=== PATIENT | female | born 1955 ===

== ENCOUNTER 2018-06-02 15:27 | Inpatient (IN) | payer MEDICARE ==
[2018-06-02] MEDS ORDERED: Ventilator Sedation Protocol 1 EACH FS SCH (18:00)
[2018-06-02] MEDS ORDERED: Propofol 1,000 MG/100 ML VIAL IV ONE (18:21)
--- NOTE | 2018-06-02 18:41 | RAD ---
PORTABLE AP CHEST X-RAY 06/02/18 HISTORY: Respiratory distress. COMPARISON: None available. FINDINGS: An endotracheal tube is noted in place with the tip overlying the T4 vertebral body and above the lev el of the maria alejandra. Right sided PICC line is noted in place with tip overlying the distal SVC. Dobhoff feeding tube is noted in place which courses into the upper abdomen, but the distal portion is not v isualized. The cardiac silhouette is within normal limits. There is diffuse increased interstitial opacities see n throughout the left lung with mild increase in interstitial opacities on the right. Small left pleu ral effusion is identified. There are linear increased density in the right mid lung zone probably re lated to either scarring or atelectasis. There is mild prominence of the right hilum. Osseous structu res appear intact. Vascular calcifications seen in the thoracic aorta. IMPRESSION: 1. Diffuse increased interstitial opacities throughout the left lung with mild perihilar interst itial densities seen on the right. While some of these findings could be attributable to chronic lung changes, infectious process should be considered. Asymmetric pulmonary edema while a possibility is felt less likely. 2. Small left pleural effusion. 3. Lines and tubes in place as described above. POS: [facility]
[2018-06-02] MEDS ORDERED: Fentanyl BOLUS 250 ML IVPB PRN (18:52)
[2018-06-02] MEDS ORDERED: Propofol BOLUS 1,000 MG/100 ML VIAL IV PRN (18:52)
[2018-06-02] MEDS ORDERED: fentaNYL Citrate/PF 2,000 MCG in Sodium Chloride 0.9% 60 ML IV SCH (18:52)
[2018-06-02] MEDS ORDERED: Lorazepam 2 MG/ML VIAL SLOW IVP PRN (18:52)
[2018-06-02] MEDS ORDERED: DISCONTINUE PREVIOUS NARCOTIC PAIN MEDICATIONS AND BENZODIAZEPINES FS SCH (18:52)
[2018-06-02 19:22] LABS: Actual Bicarbonate (HCO3a) 32.4 mEq/L (22-28); Base Excess (BEa) 6.7 mEq/L (-2.0 to +3.0); CO2 Tension 51.8 mmHg (35.0-45.0); Calcium, Ionized 1.18 mmol/L (1.12-1.30); Carboxyhemoglobin (COHb) 1.6 gm% (0.0-3.0); Hemoglobin (Hb) 11.3 g/dL (12.0-16.0); O2 Tension (PaO2) 88.5 mmHg (> 80.0); Potassium - ABG Lab 3.51 mmol/L (3.70-5.30); pH, Arterial 7.41 (7.35-7.45)
[2018-06-02 19:26] LABS: Puncture Site LRA
[2018-06-02] MEDS: Cefepime 1 GM in Sodium Chloride 0.9% 100 ML IVPB SCH (20:05)
[2018-06-02] MEDS: Famotidine/PF 20 mg/2ml Vial SLOW IVP SCH (20:05)
[2018-06-02 20:11] LABS: Bilirubin Small (Negative); Blood, Urine Negative (Negative); Clarity CLOUDY (Clear); Glucose, Urine (Dipstick) Negative (Negative); Leukocyte Small (Negative); Nitrite Negative (Negative); Protein, Urine (Dipstick) Trace mg/dL (Neg-Trace); Specific Gravity, Urine 1.021 (1.002-1.036)
[2018-06-02 20:13] LABS: Bacteria/HPF None Seen HPF (None Seen); Hyaline Casts/LPF 4-6 HYALINE CAST LPF (0-3 Hyaline); Pathc Cast-AUWi Flag 0.87 (0-2.49); Squamous Epithelial None Seen HPF (0-3); WBC/HPF 21-50 HPF (0-3)
[2018-06-02 20:15] LABS: Yeast-AUWi Flag 57.2 (0-25.0)
[2018-06-02 20:23] LABS: RBC/HPF 0-3 HPF (0-3)
[2018-06-02 20:24] LABS: Yeast-All Forms None Seen HPF (None Seen)
[2018-06-02] MEDS ORDERED: Enoxaparin Sodium 40 MG/0.4 ML SYRINGE SC SCH (21:00)
[2018-06-03] MEDS: Propofol 1,000 MG/100 ML VIAL IV PRN ×2 (05:17→16:33)
[2018-06-03 06:42] LABS: Anion Gap 11 mmol/L (10-20); BUN (Urea Nitrogen) 34 mg/dL (9.8-20.1); Calc. Creatinine Clearance 121 mL/min (70-130); Calcium 9.2 mg/dL (7.8-10.44); Carbon Dioxide 30 mmol/L (23-31); Chloride 105 mmol/L (98-107); Estimated GFR-MDRD Greater than 90; Glucose 119 mg/dL (80-115); Potassium 4.1 mmol/L (3.5-5.1); Sodium 142 mmol/L (136-145)
[2018-06-03 06:48] LABS: Actual Bicarbonate (HCO3a) 30.8 mEq/L (22-28); Base Excess (BEa) 6.8 mEq/L (-2.0 to +3.0); CO2 Tension 41.5 mmHg (35.0-45.0); Carboxyhemoglobin (COHb) 1.4 gm% (0.0-3.0); Hemoglobin (Hb) 9.2 g/dL (12.0-16.0); O2 Tension (PaO2) 137.4 mmHg (> 80.0); Potassium - ABG Lab 4.05 mmol/L (3.70-5.30); pH, Arterial 7.49 (7.35-7.45)
[2018-06-03 06:49] LABS: Puncture Site L.R.
[2018-06-03 06:50] LABS: ALV-art Gradient 238.525 (0-20)
[2018-06-03 06:56] LABS: Band 17 % (5-11); Eosinophils 1 % (0-10); Lymphocytes 22 % (21-51); MDiff Complete? YES; Mean Corpuscular HGB CONC 32.4 g/dL (32.0-36.0); Mean Corpuscular Hemoglobin 32.7 pg (27.0-31.0); Mean Platelet Volume 9.7 fL (7.4-10.4); Metamyelocyte 2 % (0-0); Monocytes 4 % (0-10); Myelocyte 3 % (0-0); Neutrophil 51 % (42-75); Nucleated RBC 6 % (0); PLT Morphology Comment Appears Decreased; Platelet Count 65 thou/uL (130-400); RBC Distribution Width 15.3 % (11.5-14.5); Red Blood Cell (RBC) Count 2.75 mill/uL (4.20-5.40); White Blood Cell (WBC) Count 10.3 thou/uL (4.8-10.8)
--- NOTE | 2018-06-03 08:25 | PRG ---
DATE OF SERVICE: 06/03/2018 She is a 63-year-old female transferred from [place]. This morning she is on the vent, breathing 20 times a minute. PHYSICAL EXAMINATION: VITAL SIGNS: Temperature 98, blood pressure 133/50, sats 95%. I's and O's 343 in, 620 out. CHEST: Chest reveals extensive rhonchi and crackles. CARDIAC: Sinus tachycardia. ABDOMEN: Distended, soft. NEUROLOGIC: She opens her eyes. Appears to be severely deconditioned. LABORATORY: White count 10,000, H&H 9 and 27, platelet count is 65,000, neutrophils 51, bands 17, pO 2 is 137, pCO2 of 41%, 49 on a rate of 20, 60%. Electrolytes are normal. UA is unremarkable. IMPRESSION: 1. Respiratory failure. 2. Chronic obstructive pulmonary disease. 3. Cachexia. 4. Metastatic lung cancer. PLAN: She is not weanable at this stage. We will have to discuss with Dr. Monroy what her plans ar e. We will start nutrition, PT, and supportive care. One-half hour critical care time.
--- NOTE | 2018-06-03 08:35 | RAD ---
PORTABLE CHEST: History: Respiratory distress. Comparison: Prior day's exam. FINDINGS: Endotracheal and feeding tubes appear in satisfactory position, right sided PICC line unchanged in po sition. Parenchymal lung changes are essentially stable. Very slight improvement to some of the milner es in the left base. IMPRESSION: Essentially stable exam. POS: [facility]
[2018-06-03] MEDS: Cefepime 1 GM in Sodium Chloride 0.9% 100 ML IVPB SCH ×2 (08:44→19:51)
[2018-06-03] MEDS: Famotidine/PF 20 mg/2ml Vial SLOW IVP SCH ×2 (08:47→19:51)
--- NOTE | 2018-06-03 08:54 | CON ---
DATE OF CONSULTATION: 06/02/2018 HISTORY OF PRESENT ILLNESS: Maury is a 63-year-old female presently intubated on the vent, sedat ed. She has a Diprivan drip. She was transferred from [facility] after apparently transfer center told me that Dr. James Hospitalist and Dr. Monroy had both accepted the patient in transfer. She was recently diagnosed to have a small cell lung cancer. Apparently, the plan to giv e chemotherapy here on the vent. Obviously, we are unable to get additional information from the patient at this time. She is on the vent, intubated and sedated. MEDICATIONS: List of medicine that appears from [facility] includes Tylenol, hydra lazine, labetalol p.r.n. I do not see any other medications. History from the nurse states that she has been in the hospital now for several weeks. Bronchoscopy showed right mainstem obstruction, extensive mediastinal adenopathy, small cell was diagnosed. I was notified about 1:30 in the afternoon that the patient returning from [place] and apparently arrived around 6:00 in the evening [facility]. She initially had nausea, vomiting, and shingles on 05/19, intubated on 05/24 and bronchoscopy on with a diagnosis of lung cancer was made. ALLERGIES: She apparently has allergies to CODEINE. She is on an ICU mode ongoing transfer. Initial admitting history was noted by a nurse practitioner, amanda Farris complaints of abdominal pain, weakness, diarrhea, generalized debilitation. PAST MEDICAL HISTORY: Otherwise pertinent from previous records for hypertension, depression. She h as been taking Enbrel, methotrexate which is 2.5, , Zoloft 50, probably has some kind of rheumat ological problem which is not mentioned in the note to speak off. PAST SURGICAL HISTORY: Hysterectomy, left tonsillectomy, intubation, bronchoscopy and biopsy. SOCIAL HISTORY: She smoked 2 packs a day. ALCOHOL: None. She was seen by Dr. Jinny Slater who made a diagnosis of lung mass. Bronchoscopy was performed by Jus malik . She was started on a Dobbhoff feeding tube. She had hypophosphatemia at that time. Bronchoscopy per formed by , his notes stated that right mainstem bronchus was completely occluded as per his no te. Biopsy revealed small cell, date of procedure was 05/25/2018. She has a PICC line placed that we can see. She was placed on acyclovir for herpes zoster infection. PHYSICAL EXAMINATION: VITAL SIGNS: On examination, intubated, vent, sats were 95, pulse 100, respirations 20, blood pressu re 130/80. CHEST: Extensive rhonchi and crackles, left greater than right. CARDIAC: Normal S1-S2. No gallops. ABDOMEN: Soft. EXTREMITIES: Trace edema. LABORATORY DATA: Results from [place] otherwise showed (05:46). BUN and creatinine were no rmal. Albumin is low at 1.8. White count 8000, H&H 8 and 24, platelet count is low at 63,000. She was in vancomycin at one time and apparently vancomycin levels were obtained. A stat chest x-ray don e in our institution shows chest x-ray to show extensive left-sided infiltrate, small left pleural ef fusion, mass in the right hilar area, but the right lung appears to be well inflated. A PICC line in the right subclavian area. IMPRESSION: 1. Respiratory failure. 2. Probably chronic obstructive pulmonary disease. 3. Severe cachexia, albumin 1.8, now for extensive left-sided infiltrate, probably aspiration pneumo erick. 4. Right main stem bronchus mass, small cell biopsy. 5. History of depression. 6. Tobacco abuse. 7. Hypertension. 8. History of herpes zoster infection. PLAN: 1. We will start nebs, steroids, broad-spectrum antibiotics. 2. We will discuss with (07:36) options. Long-term prognosis is grave. 3. She is not weanable at this stage. There is a 45-minute critical care time. We will follow.
[2018-06-03] MEDS ORDERED: Prevnar 13-Val Conj/PF 0.5 ML SYRINGE IM ONE (09:00)
[2018-06-03] MEDS ORDERED: Acetaminophen 650 MG Suppository PR PRN (10:14)
[2018-06-03 11:03] LABS: ALT (SGPT) 47 U/L (8-55); AST (SGOT) 88 U/L (5-34); Albumin 2.5 g/dL (3.4-4.8); Alkaline Phosphatase 349 U/L (40-150); Anion Gap 12 mmol/L (10-20); BUN (Urea Nitrogen) 36 mg/dL (9.8-20.1); Bilirubin, Total 3.5 mg/dL (0.2-1.2); Calc. Creatinine Clearance 113 mL/min (70-130); Carbon Dioxide 29 mmol/L (23-31); Chloride 106 mmol/L (98-107); Estimated GFR-MDRD Greater than 90; Globulin 3.2 g/dL (2.4-3.5); Glucose 132 mg/dL (80-115); Protein, Total 5.7 g/dL (6.0-8.3); Sodium 143 mmol/L (136-145)
--- NOTE | 2018-06-03 11:39 | HP ---
REASON FOR ADMISSION: Acute respiratory failure, small cell cancer, poorly differentiated right lung, severe deconditioning, 11 days on the ventilator. HISTORY OF PRESENT ILLNESS: Please note the patient was transferred from [facility] after being hospitalized there for nearly 17 days or so per staff. She has been on the ventilator for 11 days now and is currently sedated. Majority of this history is obtained by talking to the patient's daughter who is here at bedside, who has a meticulous history of what happened from last 6-8 weeks or so now. The patient initially had some abdominal pain and was having diarrhea and was dehydrated. She was essentially treated for Clostridium difficile, although no confirmation test were obtained. This slowly resolved. The patient has history of rheumatoid arthritis and is immunocompromised with her being on methotrexate and Enbrel. Her C. diff treatment was tapered after 3 weeks and patient got better apparently. After this 3 weeks of nausea, vomiting, and diarrhea, the patient was malnourished and was not feeling good. The patient was feeling weak after this 3 weeks of vancomycin treatment for C. diff and was malnourished and dehydrated per primary care physician's notes. Also, her blood test revealed her liver enzymes to be elevated. She was sent to [place] ER for CT scan of the abdomen. The CT scan was normal and 2 days later, had a HIDA scan done which showed gallbladder ejection fraction to be 25% and plans for laparoscopic cholecystectomy. This was put on hold as the patient developed shingles in the right upper quadrant area and was on acyclovir treatment. The patient finally got hospitalized as she was getting more weaker. She also developed pneumonia and her oxygen saturations dropped while she was in the hospital and her x-ray done revealed a washout of the lungs due to pneumonia and volume overload and had to be upgraded to ICU and intubated. She has had a CAT scan of the chest done and per daughter, showed right upper lobe atelectasis and also showed cancer wrapping around the bronchus. She has had bronchoscopy done with biopsies taken of the mass. Has had multiple CPAP trials failed due to patient being too weak. Finally, the patient apparently got better with pneumonia and her treating physicians wanted her to get chemotherapy to shrink the tumor, so she could be weaned off the ventilator. [facility] did not have the capability for inpatient chemotherapy and the nurse outreach case manager was trying to find a place for the same. After talking to the oncologist here, patient was accepted for the same. The previous plan was for a trach and PEG today at [place], but patient was transferred here. She has been on the ventilator for 11 days now. Currently, she barely opens her eyes to sternal stimulation. 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 CURRENT MEDICATIONS: The patient was taking methotrexate and Enbrel shots and the blood pressure pill prior to all of this happening. She has received multiple antibiotics including vancomycin, Zosyn, and Levaquin at various stages at [facility]. Prior to transfer here, she was still on vancomycin and cefepime. The patient has finished a course of acyclovir for her zoster. ALLERGIES: Allergic to CODEINE. PERSONAL HISTORY: Patient was apparently walking by herself before any of this happened. She smoked one pack a day for almost 50 years or so. Does not abuse alcohol or drugs. FAMILY HISTORY: Mother at the age of 83 years. Mother apparently had non- Hodgkin's lymphoma per records accompanying patient here. Father has had history of coronary artery disease, type 1 diabetes and did not want to start on dialysis, at the age of 65 years per records. REVIEW OF SYSTEMS: Cannot be obtained as patient is not oriented and is on the ventilator and sedated mildly. CODE STATUS: The family has decided not to resuscitate her heart if it stopped , but continue all other active measures including ventilator. This was discussed with the patient's daughter who is here at bedside, who in turn has communicated and discussed with her two other brothers. PHYSICAL EXAMINATION: GENERAL: The patient is a 63-year-old female who is currently on the ventilator. VITAL SIGNS: Blood pressure 104/40, pulse 90 per minute, respiratory rate 20 per minute, temperature 98.8 degrees Fahrenheit, saturating 100% on 40% FIO2. NECK: Supple, no elevated JVD. HEENT: Eyes: There is subconjunctival hemorrhage in the right eye. Pupils are 3 mm and reacting to light. Oral cavity: Patient is orally intubated. Mucous membranes are dry. No exudates seen. CARDIOVASCULAR: S1, S2 heard. Regular rhythm. RESPIRATORY: Air entry 1+ bilateral. Crackles plus bilateral. ABDOMEN: Soft, bowel sounds heard. No tenderness, rigidity or guarding. EXTREMITIES: There is mild peripheral edema. Patient apparently has a foot drop now since being hospitalized for nearly 17 days. Peripheral pulses are 1+ bilateral, no ischemic ulcerations or gangrene. CENTRAL NERVOUS SYSTEM: No gross focal deficits seen. PSYCHIATRIC: Cannot be assessed as patient is currently on ventilator and is sedated. LABORATORY DATA AND X-RAY FINDINGS: White count of 10, H&H is 9 and 27, platelet count 65 with 51% neutrophils, MCV is 101. Blood gas shows pH of 7.41 , pCO2 of 51, pO2 88, bicarbonate is 32, BUN 30, creatinine 0.5, serum bicarbonate 30. Electrolytes are stable. Chest x-ray done shows left lung infiltrate. There is diffuse interstitial opacities seen in both lungs, small left pleural effusion. 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 She will be on cefepime. I have spoken to Dr. Zuñiga, oncologist who will be shortly seeing the patient. I have discussed her findings with Dr. Brito. She will be on Solu-Medrol 40 mg IV q.6 hourly along with nebulizers. The patient has had an episode of gastroenteritis 6-8 weeks back and was treated for nearly 3 weeks of antibiotics for C. diff. In view of this, we will obtain blood, urine, and stool cultures. She has pancytopenia and specifically low platelets in the 60s. We will try to avoid heparin products for now and place her on fondaparinux for deep venous thrombosis prophylaxis. Her overall prognosis is guarded. Echo with 2D Doppler for LV function will be obtained. Enormous amount of documents have been sent from [facility], which are mostly progress notes and I have flagged relevant documents up for review of specialists who are seeing her. There is a disk accompanying her for imaging for nearly 27 imaging studies done and we will try to upload the same on the hospital computer and get expert opinion from Radiology if possible. Again, her overall prognosis is guarded and we will wait for oncology evaluation for helping and guiding further treatments here. JEFFREY
[2018-06-03] MEDS: Acetaminophen 325 MG TAB PO PRN (21:24)
[2018-06-04] MEDS: Propofol 1,000 MG/100 ML VIAL IV PRN ×4 (01:20→22:45)
--- NOTE | 2018-06-04 01:51 | CON ---
DATE OF CONSULTATION: 06/03/2018 REASON FOR CONSULTATION: Small cell lung cancer. HISTORY OF PRESENT ILLNESS: A 63-year-old female with new diagnsis of small cell lung cancer, transferred from [facility] for higher level of care. Patient was hospitalized in [place] for approximately 17 days and has been on a ventilator for 11 days. She is currently sedated and the history is obtained from the patient's daughter who was at the bedside. Patient began having abdominal pain and diarrhea 6-8 weeks ago and patient was treated for C. diff with slow resolution of her symptoms. Patient was still feeling very weak after this and she was very malnourished and dehydrated as per her primary care physician. Blood test revealed elevated liver enzymes. She was sent to [place] ER for a CT of the abdomen, which was normal. Two days later, she had a HIDA scan done that showed reduced gallbladder ejection fraction of 25% and required a laparoscopic cholecystectomy. However, this cholecystectomy was not done as the patient then developed shingles in her right upper quadrant area and began treatment with acyclovir. Patient continued to get weaker and was eventually hospitalized and found to have pneumonia when her oxygen saturation began to drop and as per her daughter, the chest x-ray was nearly completely opaque. Patient was transferred to the ICU and intubated. CT of the chest showed right upper lobe atelectasis and a mass wrapping around the bronchus. Patient had a bronchoscopy with biopsies, which showed small cell lung cancer. Patient failed weaning from the ventilator. Patient was evaluated by local oncologist who stated they were unable to give IV chemotherapy at that hospital and offered her oral etoposide; however, this could not be safely crushed and put through her feeding tube. For this reason, she was transferred to [facility] in [place]. Patient is currently sedated and unresponsive. Patient's vital signs are currently stable and she is not requiring any vasopressors. REVIEW OF SYSTEMS: Unable to obtain due to patient's mental status, intubation , and being sedated. PAST MEDICAL HISTORY: Rheumatoid arthritis, hypertension, migraines, tobacco abuse. PAST SURGICAL HISTORY: Left knee surgery. FAMILY HISTORY: Non-Hodgkin's lymphoma in her mother, diabetes and coronary artery disease in her father. No other reported family history of cancer. SOCIAL HISTORY: One pack per day smoking x50 years. No alcohol or drug abuse. CURRENT MEDICATIONS: Reviewed. PHYSICAL EXAMINATION: VITAL SIGNS: Temperature 99.1, pulse 91, oxygen saturation 95% on mechanical ventilation. GENERAL: Patient is lying in bed, intubated and sedated and unresponsive to touch. NECK: Supple, no JVD. HEENT: Some conjunctival hemorrhage in right eye. Oral cavity, endotracheal tube present. CARDIOVASCULAR: S1, S2, regular rate and rhythm. RESPIRATORY: Bilateral crackles over the anterior zendejas. ABDOMEN: Soft, nondistended, obese. EXTREMITIES: Mild edema. NEUROLOGIC: Nonfocal. PSYCHIATRIC: Could not be assessed as patient is currently sedated and intubated. LABORATORY DATA: White blood cell count 10.3, hemoglobin 9.0, platelets 65. BUN 36, creatinine 0.58, bilirubin 3.5, AST 88, ALT 47, albumin 2.5. IMAGING DATA: Chest x-ray shows left lung infiltrate. CT scan from outside hospital presents of intra-abdominal or pelvic metastases, however, did show a large lung mass wrapping around the bronchus. ASSESSMENT AND PLAN: A 63-year-old female with newly diagnosed small cell lung cancer with acute respiratory failure, currently intubated for the last [address] scans from outside hospital, patient appears to possibly have limited stage small cell lung cancer. This is not definitive as her scans have not been reviewed here and she requires an MRI of the brain to rule out brain metastasis. She had a CT scan that did not show any bleeds. Her CT scans are notoriously insensitive when it comes to detecting metastatic cancer to the brain. The patient is requiring intubation due to a large tumor burden in her chest compressing her bronchus. Small cell lung cancer is extremely sensitive to chemotherapy, and there is a chance that chemo can shrink this mass significantly and allow patient to come off mechanical ventilation. I would recommend starting chemotherapy with carboplatin and etoposide. Carboplatin is given along with etoposide on day 1 and etoposide is given again on days 2 and 3. Chemotherapy can lower her blood counts including her platelets, which are already low. Patient is currently on deep venous thrombosis prophylaxis and this will need to be stopped if the patient's platelets drop below 50. We will plan on starting chemotherapy tonight or early tomorrow morning. MRI brain is not urgent and can be done at a later time when patient is more stable. I will also discuss this case with Dr. Monreal from radiation oncology to determine if patient may benefit from some local thoracic radiation. I have discussed this plan with patient's daughter, and she will discuss this with the rest of her family. She has given consent to treatment. I discussed this plan with our oncology nurses who will facilitate giving chemotherapy to this patient. I will continue to follow this patient with you. Thank you for this consult. JEFFREY
[2018-06-04 06:11] LABS: Anion Gap 7 mmol/L (10-20); BUN (Urea Nitrogen) 35 mg/dL (9.8-20.1); Calc. Creatinine Clearance 143 mL/min (70-130); Calcium 8.6 mg/dL (7.8-10.44); Carbon Dioxide 32 mmol/L (23-31); Chloride 108 mmol/L (98-107); Estimated GFR-MDRD Greater than 90; Glucose 149 mg/dL (80-115); Potassium 3.6 mmol/L (3.5-5.1); Sodium 143 mmol/L (136-145)
[2018-06-04 06:26] LABS: Actual Bicarbonate (HCO3a) 33.3 mEq/L (22-28); Base Excess (BEa) 8.8 mEq/L (-2.0 to +3.0); CO2 Tension 46.2 mmHg (35.0-45.0); Calcium, Ionized 1.18 mmol/L (1.12-1.30); Carboxyhemoglobin (COHb) 1.4 gm% (0.0-3.0); Hemoglobin (Hb) 8.7 g/dL (12.0-16.0); O2 Tension (PaO2) 78.2 mmHg (> 80.0); Potassium - ABG Lab 3.67 mmol/L (3.70-5.30); Puncture Site RRA; pH, Arterial 7.48 (7.35-7.45)
[2018-06-04 06:49] LABS: Hemoglobin 7.9 g/dL (12.0-16.0); Mean Corpuscular HGB CONC 32.4 g/dL (32.0-36.0); Mean Corpuscular Hemoglobin 33.1 pg (27.0-31.0); Mean Platelet Volume 9.6 fL (7.4-10.4); Platelet Count 71 thou/uL (130-400); RBC Distribution Width 15.4 % (11.5-14.5); Red Blood Cell (RBC) Count 2.39 mill/uL (4.20-5.40); White Blood Cell (WBC) Count 9.3 thou/uL (4.8-10.8)
[2018-06-04 07:12] LABS: Anisocytosis SLIGHT = 6-15 cells (100X) (0-5/hpf); Band 16 % (5-11); Eosinophils 1 % (0-10); Lymphocytes 27 % (21-51); MDiff Complete? YES; Macrocytosis SLIGHT = 6-15 cells (100X) (0-5/hpf); Metamyelocyte 1 % (0-0); Monocytes 4 % (0-10); Neutrophil 51 % (42-75); Nucleated RBC 3 % (0); PLT Morphology Comment Appears Decreased
[2018-06-04] MEDS ORDERED: Dexamethasone 20 MG in Sodium Chloride 0.9% 50 ML IVPB SCH (08:00)
[2018-06-04] MEDS ORDERED: CARBOPLATIN IVPB SCH (08:00)
[2018-06-04] MEDS ORDERED: SODIUM CHLORIDE 0.9% IVPB SCH (08:00)
[2018-06-04] MEDS ORDERED: PALONOSETRON HCL 0.05 MG/ML 5 ML VIAL IVP SCH (08:00)
[2018-06-04] MEDS: Famotidine/PF 20 mg/2ml Vial SLOW IVP SCH ×2 (08:29→20:07)
[2018-06-04] MEDS: Fondaparinux Sodium 2.5 MG/0.5 ML SYRINGE SC SCH ×2 (08:29→09:09)
[2018-06-04] MEDS: Cefepime 1 GM in Sodium Chloride 0.9% 100 ML IVPB SCH ×2 (08:29→20:06)
--- NOTE | 2018-06-04 09:44 | RAD ---
AP CHEST: History: Ventilator dependent patient. Date: 06-04-18 Comparison: 06-03-18 FINDINGS: AP chest demonstrates a feeding tube in place. Endotracheal tube is in good position. There is a right upper extremity PICC line in place. Pulmonary vascular congestion is seen. No evidence of effusions or pneumonia is seen. IMPRESSION: 1. Lines and tubes in good position. 2. Pulmonary vascular congestion. No significant interval changes noted. POS: [facility]
[2018-06-04] MEDS ORDERED: Fluconazole In NaCl,Iso-Osm 200 MG in Premix Bag 1 BAG IVPB SCH ×3 (10:00)
[2018-06-04] MEDS: ETOPOSIDE IVPB SCH (10:20)
[2018-06-04] MEDS: SODIUM CHLORIDE 0.9% IVPB SCH (10:20)
--- NOTE | 2018-06-04 11:29 | PDOC.PN ---
- Subjective Encounter Start Date: 06/04/18 Encounter Start Time: 08:00 Subjective: on vent sedated -: is starting chemotherapy this am - Objective Resuscitation Status: Resuscitation Status DNR:Do Not Resuscitate MAR Reviewed: Yes Vital Signs & Weight: Vital Signs (12 hours) Temp Pulse Resp BP Pulse Ox 06/04/18 10:53 98.6 F 06/04/18 10:33 84 124/51 L 06/04/18 09:58 20 06/04/18 09:00 87 129/51 L 06/04/18 08:00 21 H 92 L 06/04/18 07:00 98.8 F 06/04/18 06:56 85 135/54 L 06/04/18 06:00 19 06/04/18 04:00 17 06/04/18 03:00 98.4 F 06/04/18 02:23 89 06/04/18 02:21 91 24 H 95 06/04/18 02:00 21 H 06/04/18 00:00 20 Weight Admit Weight 163 lb 2.273 oz Weight 180 lb Most Recent Monitor Data Heart Rate from ECG 85 NIBP 122/54 NIBP BP-Mean 76 Respiration from ECG 21 SpO2 94 I&O: 06/03/18 06/04/18 06/05/18 06:59 06:59 06:59 Intake Total 343.6 1446 540 Output Total 620 1361 210 Balance -276.4 85 330 Result Diagrams: 06/04/18 05:22 06/04/18 05:22 Phys Exam - Physical Examination HEENT: PERRLA, sclera anicteric Neck: no JVD, supple Respiratory: no wheezing, no rales Cardiovascular: RRR, no significant murmur Gastrointestinal: soft, non-tender, positive bowel sounds Musculoskeletal: pulses present, edema present Neurological: non-focal, moves all 4 limbs Dx/Plan (1) Acute respiratory failure with hypoxia Code(s): J96.01 - ACUTE RESPIRATORY FAILURE WITH HYPOXIA Status: Acute (2) Small cell lung cancer Code(s): C34.90 - MALIGNANT NEOPLASM OF UNSP PART OF UNSP BRONCHUS OR LUNG Status: Acute Comment: poorly diff per histopath (3) Pancytopenia Code(s): D61.818 - OTHER PANCYTOPENIA Status: Acute (4) Moderate protein malnutrition Code(s): E44.0 - MODERATE PROTEIN-CALORIE MALNUTRITION Status: Acute (5) Muscular deconditioning Code(s): R29.898 - OTH SYMPTOMS AND SIGNS INVOLVING THE MUSCULOSKELETAL SYSTEM Status: Acute (6) H/O rheumatoid arthritis Code(s): Z87.39 - PERSONAL HISTORY OF DISEASES OF THE MS SYS AND CONN TISS Status: Chronic Comment: was on enbrel and methotrexate prior to hosp - Plan is starting carboplatin and etoposide from today -: on cefipime, add fluconazole for ?fungal uti/colonization of tube -: will need trach and peg likely wednesday -: ng feeding, PT to work on bed for severe deconditioning -: steroids, nebs, fondaparinux for dvt prophylaxis, will get usg LE to r/o dv * . Review of Systems - Medications/Allergies Allergies/Adverse Reactions: Allergies Allergy/AdvReac Type Severity Reaction Status Date / Time codeine Allergy Verified 06/02/18 18:50 Medications: Current Medications Acetaminophen (Tylenol) 650 mg PO Q4H PRN PRN Reason: Headache/Fever or Pain Last Admin: 06/03/18 21:24 Dose: 650 mg Acetaminophen (Tylenol) 650 mg AL Q4H PRN PRN Reason: Headache/Fever or Pain Albuterol/Ipratropium (Duoneb) 3 ml NEB [id number] [facility] Last Admin: 06/04/18 10:35 Dose: 3 ml Famotidine (Pepcid) 20 mg SLOW IVP BID [facility] Last Admin: 06/04/18 08:29 Dose: 20 mg Fondaparinux (Arixtra) 2.5 mg SC DAILY@0600 [facility] Last Admin: 06/04/18 09:09 Dose: 2.5 mg Cefepime HCl 1 gm/ Sodium (Chloride) 100 mls @ 200 mls/hr IVPB Q12HR [facility] Last Admin: 06/04/18 08:29 Dose: 100 mls Fentanyl Citrate 2,000 mcg/ (Sodium Chloride) 100 mls @ 0 mls/hr IV INF [facility]; Protocol Stop: 07/02/18 18:52 Fentanyl Citrate (Fentanyl Bolus) 250 mls @ 0 mls/hr IVPB PRN PRN PRN Reason: Breakthrough pain/agitation Stop: 07/02/18 18:52 Dexamethasone 20 mg/ Sodium (Chloride) 55 mls @ 165 mls/hr IVPB ONE [facility] Stop: 06/04/18 23:59 Last Admin: 06/04/18 09:04 Dose: 55 mls Carboplatin 776 mg/ Sodium (Chloride) 327.6 mls @ 436.8 mls/hr IVPB ONE [facility] Stop: 06/04/18 23:59 Last Admin: 06/04/18 09:22 Dose: 327.6 mls Etoposide 196 mg/ Sodium (Chloride) 509.8 mls @ 509.8 mls/hr IVPB 0800 [facility] Stop: 06/06/18 08:59 Last Admin: 06/04/18 10:20 Dose: 509.8 mls Fluconazole/Sodium Chloride (200 mg/ Device) 100 mls @ 100 mls/hr IVPB 1000 [facility] Stop: 06/04/18 12:00 Last Admin: 06/04/18 09:25 Dose: 100 mls Fluconazole/Sodium Chloride (200 mg/ Device) 100 mls @ 100 mls/hr IVPB DAILY [facility] Lorazepam (Ativan) 2 mg SLOW IVP Q1H PRN PRN Reason: Breakthrough agitation Stop: 07/02/18 18:52 Methylprednisolone Sodium Succinate (Solu-Medrol) 40 mg IVP Q6HR [facility] Last Admin: 06/04/18 05:07 Dose: 40 mg Morphine Sulfate (Morphine) 2 mg SLOW IVP Q1H PRN PRN Reason: BREAKTHROUGH PAIN/AGITATION Stop: 07/02/18 18:52 Last Admin: 06/04/18 09:34 Dose: 2 mg Discontinue Previous Narcotic Pain Medications And Benzodiazepines 1 each FS .ONE [facility] Stop: 07/02/18 18:52 Ondansetron HCl (Zofran) 4 mg IVP Q6H PRN PRN Reason: Nausea/Vomiting Propofol (Diprivan) 1,000 mg IV INF PRN; Protocol PRN Reason: TO ACHIEVE GOAL RASS Stop: 07/02/18 18:52 Last Admin: 06/04/18 09:23 Dose: 1,000 mg Propofol (Diprivan Bolus) 20 mg IV Q5MIN PRN PRN Reason: BREAKTHROUGH AGITATION Stop: 07/02/18 18:52 Sodium Chloride (Flush - Normal Saline) 10 ml IVF PRN PRN PRN Reason: Saline Flush Sodium Chloride (Flush - Normal Saline) 10 ml IVF Q12HR [facility] Last Admin: 06/04/18 08:29 Dose: Not Given
[2018-06-04 13:04] LABS: Fibrinogen 648 mg/dL (253-463)
[2018-06-04 13:05] LABS: INR-International Normal Ratio 1.1; PTT 28.6 SEC (22.9-36.1); Prothrombin Time 14.2 SEC (12.0-14.7)
[2018-06-04 13:06] LABS: D-Dimer Test 3.14 *mcg/mL (0.27-0.43)
[2018-06-04 13:16] LABS: Platelet Count 75 thou/uL (130-400)
[2018-06-04 13:27] LABS: FSP-Qualitative Normal (Normal)
--- NOTE | 2018-06-04 14:03 | ULT ---
BILATERAL LOWER EXTREMITY DEEP VENOUS DOPPLER ULTRASOUND: HISTORY: Bilateral lower extremity edema and pain. TECHNIQUE: Franks-scale ultrasound with color-flow and spectral Doppler imaging of the deep venous systems of the lower extremities is performed bilaterally. FINDINGS: There is good flow, compression, and augmentation noted in the common femoral, femoral, deep femoral, popliteal, posterior tibial, and greater saphenous veins. IMPRESSION: No evidence of deep venous thrombosis in either lower extremity. POS: [facility]
--- NOTE | 2018-06-04 21:53 | PRG ---
DATE OF SERVICE: 06/04/2018 SUBJECTIVE: Abril Mendiola started chemotherapy today. She is sedated for ventilation. OBJECTIVE: VITAL SIGNS: Heart rate is 85, respiratory rate is 23, blood pressure 117/54. Intake and output is positive 85 mL LUNGS: Remarkable for diffuse wheezes. HEART: Regular rhythm. ABDOMEN: Soft. EXTREMITIES: With edema. A Doppler of her lower extremities was ordered today , that did not show DVT. IMAGING: She has had an echocardiogram done yesterday, which was of poor quality, ejection fraction appeared to be normal, diastolic dysfunction was seen. IMPRESSION AND PLAN: Small cell lung cancer, now receiving chemo. Her respiratory distress was in part secondary to compression of bronchi by her mediastinal mass. It will probably take 10 days to 2 weeks to see improvement in her clinical course. This will create a situation from a weaning standpoint will most likely be complicated by profound weakness. It is unclear whether or not she had paraneoplastic weakness prior to intubation since she has been in [place] for many days prior to being transferred here. We will continue with critical care management, but a few therapeutic options other than time and the chemotherapy at this point in time, her prognosis in my opinion is quite poor. Chest radiograph today was reviewed. There are no new significant changes. Blood gas showed a pH of 7.48, CO2 of 46, pO2 of 78. Critical care time was 30 minutes. MTDD
[2018-06-05 04:19] LABS: Anion Gap 11 mmol/L (10-20); BUN (Urea Nitrogen) 34 mg/dL (9.8-20.1); Calc. Creatinine Clearance 142 mL/min (70-130); Calcium 8.6 mg/dL (7.8-10.44); Carbon Dioxide 28 mmol/L (23-31); Chloride 109 mmol/L (98-107); Estimated GFR-MDRD Greater than 90; Glucose 143 mg/dL (80-115); Sodium 144 mmol/L (136-145)
[2018-06-05 05:21] LABS: Band 8 % (5-11); Hemoglobin 8.1 g/dL (12.0-16.0); Lymphocytes 28 % (21-51); MDiff Complete? YES; Mean Corpuscular HGB CONC 31.9 g/dL (32.0-36.0); Mean Corpuscular Hemoglobin 32.6 pg (27.0-31.0); Mean Platelet Volume 9.9 fL (7.4-10.4); Monocytes 4 % (0-10); Neutrophil 60 % (42-75); Nucleated RBC 2 % (0); PLT Morphology Comment Appears Decreased; Platelet Count 71 thou/uL (130-400); RBC Distribution Width 15.9 % (11.5-14.5); Red Blood Cell (RBC) Count 2.47 mill/uL (4.20-5.40)
[2018-06-05] MEDS: Fondaparinux Sodium 2.5 MG/0.5 ML SYRINGE SC SCH (05:29)
[2018-06-05 06:25] LABS: Actual Bicarbonate (HCO3a) 30.7 mEq/L (22-28); Base Excess (BEa) 6.2 mEq/L (-2.0 to +3.0); CO2 Tension 44.5 mmHg (35.0-45.0); Calcium, Ionized 1.17 mmol/L (1.12-1.30); Carboxyhemoglobin (COHb) 1.6 gm% (0.0-3.0); Hemoglobin (Hb) 8.3 g/dL (12.0-16.0); O2 Tension (PaO2) 90.2 mmHg (> 80.0); Potassium - ABG Lab 3.93 mmol/L (3.70-5.30); pH, Arterial 7.46 (7.35-7.45)
[2018-06-05 06:27] LABS: ALV-art Gradient 139.375 (0-20); Puncture Site RRA
[2018-06-05] MEDS: Famotidine/PF 20 mg/2ml Vial SLOW IVP SCH ×2 (08:08→20:53)
[2018-06-05] MEDS: Cefepime 1 GM in Sodium Chloride 0.9% 100 ML IVPB SCH ×2 (08:11→20:53)
[2018-06-05] MEDS: SODIUM CHLORIDE 0.9% IVPB SCH (08:51)
[2018-06-05] MEDS: ETOPOSIDE IVPB SCH (08:51)
[2018-06-05] MEDS ORDERED: Fluconazole In NaCl,Iso-Osm 100 MG in Premix Bag 1 BAG IVPB SCH (09:00)
--- NOTE | 2018-06-05 09:03 | RAD ---
PORTABLE CHEST 1 VIEW: Date: 06/05/18 Time: 0508 hours HISTORY: Respiratory failure. FINDINGS/IMPRESSION: Line and tube placements are unchanged in position. The heart size is normal. There is pulmonary vasc ular congestion. No pneumothoraces, lobar consolidation, or large effusions are seen. POS: [facility]
[2018-06-05] MEDS: Propofol 1,000 MG/100 ML VIAL IV PRN ×2 (10:12→19:35)
[2018-06-05] MEDS: Fluconazole In NaCl,Iso-Osm 200 MG in Premix Bag 1 BAG IVPB SCH (10:13)
[2018-06-05] MEDS: Sodium Chloride 0.9% 1,000 ML IV SCH ×2 (11:00→20:54)
--- NOTE | 2018-06-05 12:22 | PDOC.PN ---
- Subjective Encounter Start Date: 06/05/18 Encounter Start Time: 09:35 Subjective: awakens, follows simple verbal stimuli, moves her hands and toes -: on vent, mild sedation - Objective Resuscitation Status: Resuscitation Status DNR:Do Not Resuscitate MAR Reviewed: Yes Vital Signs & Weight: Vital Signs (12 hours) Temp Pulse Resp BP Pulse Ox 06/05/18 10:16 93 148/66 H 06/05/18 10:00 22 H 06/05/18 09:11 95 132/56 L 06/05/18 07:00 98.2 F 06/05/18 06:59 90 122/52 L 06/05/18 06:00 23 H 06/05/18 04:00 22 H 06/05/18 03:00 98.7 F 06/05/18 02:22 88 19 93 L 06/05/18 02:00 23 H Weight Admit Weight 163 lb 2.273 oz Weight 181 lb 14.102 oz Most Recent Monitor Data Heart Rate from ECG 93 NIBP 132/58 NIBP BP-Mean 79 Respiration from ECG 25 SpO2 95 I&O: 06/04/18 06/05/18 06/06/18 06:59 06:59 06:59 Intake Total 1446 2431 550 Output Total 1361 1135 205 Balance 85 1296 345 Result Diagrams: 06/05/18 03:43 06/05/18 03:43 Phys Exam - Physical Examination HEENT: PERRLA, sclera anicteric Neck: no JVD, supple Respiratory: no wheezing rhonchi+ Cardiovascular: RRR, no significant murmur Gastrointestinal: soft, positive bowel sounds ?hepatomegaly++ Musculoskeletal: pulses present, edema present Neurological: non-focal, moves all 4 limbs Dx/Plan (1) Acute respiratory failure with hypoxia Code(s): J96.01 - ACUTE RESPIRATORY FAILURE WITH HYPOXIA Status: Acute (2) Small cell lung cancer Code(s): C34.90 - MALIGNANT NEOPLASM OF UNSP PART OF UNSP BRONCHUS OR LUNG Status: Acute Comment: poorly diff per histopath (3) Pancytopenia Code(s): D61.818 - OTHER PANCYTOPENIA Status: Acute (4) Moderate protein malnutrition Code(s): E44.0 - MODERATE PROTEIN-CALORIE MALNUTRITION Status: Acute (5) Muscular deconditioning Code(s): R29.898 - OTH SYMPTOMS AND SIGNS INVOLVING THE MUSCULOSKELETAL SYSTEM Status: Acute (6) H/O rheumatoid arthritis Code(s): Z87.39 - PERSONAL HISTORY OF DISEASES OF THE MS SYS AND CONN TISS Status: Chronic Comment: was on enbrel and methotrexate prior to hosp - Plan got 2nd dose of etoposide this am -: on cefepime, steroids, nebs -: ng feeding, PT to work on bed, has severe deconditioning -: gentle iv hydration, fondarinux for dvt prophylaxis ?HIT -: no signs of DIC, prognosis guarded * . WIll need staging scans to be done per onc advice. Review of Systems - Medications/Allergies Allergies/Adverse Reactions: Allergies Allergy/AdvReac Type Severity Reaction Status Date / Time codeine Allergy Verified 06/02/18 18:50 Medications: Current Medications Acetaminophen (Tylenol) 650 mg PO Q4H PRN PRN Reason: Headache/Fever or Pain Last Admin: 06/03/18 21:24 Dose: 650 mg Acetaminophen (Tylenol) 650 mg [place] Q4H PRN PRN Reason: Headache/Fever or Pain Albuterol/Ipratropium (Duoneb) 3 ml NEB [id number] [facility] Last Admin: 06/05/18 10:16 Dose: 3 ml Famotidine (Pepcid) 20 mg SLOW IVP BID [facility] Last Admin: 06/05/18 08:08 Dose: 20 mg Fondaparinux (Arixtra) 2.5 mg SC DAILY@0600 [facility] Last Admin: 06/05/18 05:29 Dose: 2.5 mg Cefepime HCl 1 gm/ Sodium (Chloride) 100 mls @ 200 mls/hr IVPB Q12HR [facility] Last Admin: 06/05/18 08:11 Dose: 100 mls Fentanyl Citrate 2,000 mcg/ (Sodium Chloride) 100 mls @ 0 mls/hr IV INF [facility]; Protocol Stop: 07/02/18 18:52 Fentanyl Citrate (Fentanyl Bolus) 250 mls @ 0 mls/hr IVPB PRN PRN PRN Reason: Breakthrough pain/agitation Stop: 07/02/18 18:52 Etoposide 196 mg/ Sodium (Chloride) 509.8 mls @ 509.8 mls/hr IVPB 0800 [facility] Stop: 06/06/18 08:59 Last Admin: 06/05/18 08:51 Dose: 509.8 mls Fluconazole/Sodium Chloride (200 mg/ Device) 100 mls @ 100 mls/hr IVPB DAILY [facility] Last Admin: 06/05/18 10:13 Dose: 100 mls Sodium Chloride (Normal Saline 0.9%) 1,000 mls @ 70 mls/hr IV .[id number] [facility] Lorazepam (Ativan) 2 mg SLOW IVP Q1H PRN PRN Reason: Breakthrough agitation Stop: 07/02/18 18:52 Methylprednisolone Sodium Succinate (Solu-Medrol) 40 mg IVP Q6HR [facility] Last Admin: 06/05/18 05:29 Dose: 40 mg Morphine Sulfate (Morphine) 2 mg SLOW IVP Q1H PRN PRN Reason: BREAKTHROUGH PAIN/AGITATION Stop: 07/02/18 18:52 Last Admin: 06/04/18 21:50 Dose: 2 mg Discontinue Previous Narcotic Pain Medications And Benzodiazepines 1 each FS .ONE [facility] Stop: 07/02/18 18:52 Ondansetron HCl (Zofran) 4 mg IVP Q6H PRN PRN Reason: Nausea/Vomiting Propofol (Diprivan) 1,000 mg IV INF PRN; Protocol PRN Reason: TO ACHIEVE GOAL RASS Stop: 07/02/18 18:52 Last Admin: 06/05/18 10:12 Dose: 1,000 mg Propofol (Diprivan Bolus) 20 mg IV Q5MIN PRN PRN Reason: BREAKTHROUGH AGITATION Stop: 07/02/18 18:52 Sodium Chloride (Flush - Normal Saline) 10 ml IVF PRN PRN PRN Reason: Saline Flush Sodium Chloride (Flush - Normal Saline) 10 ml IVF Q12HR [facility] Last Admin: 06/05/18 10:14 Dose: Not Given
[2018-06-05 12:48] LABS: Phosphorus 2.6 mg/dL (2.3-4.7); Uric Acid 4.2 mg/dL (2.6-6.0)
--- NOTE | 2018-06-05 17:53 | PRG ---
DATE OF SERVICE: 06/05/2018 SUBJECTIVE: Abril Mendiola is sedated for ventilation. She will awaken and move her extremities. OBJECTIVE: VITAL SIGNS: She is afebrile, blood pressure 146/71, respiratory rates in the 20s. LUNGS: Remarkable for faint wheezes and rhonchi. HEART: Regular rhythm. ABDOMEN: Soft. EXTREMITIES: Without asymmetry. LABORATORY DATA: White count 9, hemoglobin 8.1, platelets 71,000. Sodium 144, potassium 4, chloride 109, bicarbonate 28, BUN 34, creatinine 0.51. PH 7.46, CO2 44, pO2 90. IMPRESSION AND PLAN: Respiratory failure. Given that she has patent bronchi and no lobar collapse, I suspect her small cell lung cancer is contributing to her dyspnea, but not the main cause of her dy spnea and respiratory failure. I suspect she has significant obstructive lung disease behind all of this and it is unclear at this point whether she will ever be weanable from mechanical ventilation. She has findings consistent with significant diaphragm dysfunction and a prolonged expiratory phase a t this time. We will continue with current supportive care. Critical care time, 30 minutes.
[2018-06-06] MEDS: Fondaparinux Sodium 2.5 MG/0.5 ML SYRINGE SC SCH (05:38)
[2018-06-06 05:51] LABS: #Lymphocytes 2.1 thou/uL (1.20-3.40); #Monocytes 0.4 thou/uL (0.11-0.59); #Neutrophils 4.6 thou/uL (1.40-6.50); %Basophils 0.2 % (0.0-1.0); %Eosinophils 0.4 % (0.0-10.0); %Lymphocytes 29.2 % (21.0-51.0); %Neutrophils 65.3 % (42.0-75.0); Hemoglobin 8.1 g/dL (12.0-16.0); Mean Corpuscular Hemoglobin 32.6 pg (27.0-31.0); Mean Platelet Volume 9.2 fL (7.4-10.4); Platelet Count 72 thou/uL (130-400); RBC Distribution Width 15.5 % (11.5-14.5); Red Blood Cell (RBC) Count 2.49 mill/uL (4.20-5.40); White Blood Cell (WBC) Count 7.1 thou/uL (4.8-10.8)
[2018-06-06 05:56] LABS: Anion Gap 9 mmol/L (10-20); BUN (Urea Nitrogen) 35 mg/dL (9.8-20.1); Calc. Creatinine Clearance 129 mL/min (70-130); Calcium 8.6 mg/dL (7.8-10.44); Carbon Dioxide 28 mmol/L (23-31); Chloride 111 mmol/L (98-107); Estimated GFR-MDRD Greater than 90; Glucose 154 mg/dL (80-115); Potassium 4.2 mmol/L (3.5-5.1); Sodium 144 mmol/L (136-145)
[2018-06-06 06:04] LABS: ALT (SGPT) 54 U/L (8-55); AST (SGOT) 149 U/L (5-34); Albumin 2.7 g/dL (3.4-4.8); Alkaline Phosphatase 401 U/L (40-150); Bilirubin, Total 2.7 mg/dL (0.2-1.2); Protein, Total 5.5 g/dL (6.0-8.3)
[2018-06-06] MEDS ORDERED: FONDAPARINUX SODIUM SC SCH (06:15)
[2018-06-06 06:22] LABS: Hep B Surf Ag Non-Reactive S/CO (NonReactive)
[2018-06-06 06:23] LABS: Hep C IgG Ab Non-Reactive (NonReactive); Hep C Index 0.07 S/CO (0-0.79)
[2018-06-06 06:24] LABS: HBCM Index 0.17 S/CO (0-0.79); Hep A IgM AB Non-Reactive (NonReactive); Hep A IgM S/CO 0.14 S/CO (0-0.79); Hepatitis B Core IGM Abs Non-Reactive (NonReactive)
[2018-06-06 06:49] LABS: Base Excess (BEa) 5.3 mEq/L (-2.0 to +3.0); CO2 Tension 45.4 mmHg (35.0-45.0); Calcium, Ionized 1.16 mmol/L (1.12-1.30); Hemoglobin (Hb) 8.4 g/dL (12.0-16.0); O2 Tension (PaO2) 100.7 mmHg (> 80.0); pH, Arterial 7.44 (7.35-7.45)
[2018-06-06 06:52] LABS: Puncture Site RR
[2018-06-06] MEDS: Famotidine/PF 20 mg/2ml Vial SLOW IVP SCH ×2 (07:53→21:31)
[2018-06-06] MEDS: Cefepime 1 GM in Sodium Chloride 0.9% 100 ML IVPB SCH ×2 (08:00→21:30)
--- NOTE | 2018-06-06 08:33 | PRG ---
DATE OF SERVICE: 06/06/2018 This is a 63-year-old female. This morning she is mildly sedated on Diprivan drip. She opens her eyes. PHYSICAL EXAMINATION: VITAL SIGNS: Pulse 96, blood pressure 150/62, O2 sat 95%, respiration 22. CHEST: Minimal rhonchi. CARDIAC: Normal S1-S2. No gallops. ABDOMEN: Soft. EXTREMITIES: No edema. LABORATORY DATA: White count 10,000, H&H is 8 and 25, platelet count is 72,000. PO2 100, pCO2 of 45 , pH 7.44 on a rate of 10, 40%, 450 tidal volume, BUN and creatinine are normal. Echo was unremarkab le. BNP is slightly elevated, LDH 1178. X-ray shows stable bilateral infiltrates. IMPRESSION: 1. Small cell lung cancer. 2. Chronic obstructive pulmonary disease. 3. Thrombocytopenia. 4. Severe deconditioning. 5. Marked cachexia. PLAN: Continue antibiotics, neb treatments, supportive care. She is already started on chemotherapy as per Oncology. Continue nutrition and PT. She was made a DNR as per her family. This is a one-half hour critical care time.
[2018-06-06] MEDS: ETOPOSIDE IVPB SCH (08:37)
[2018-06-06] MEDS: SODIUM CHLORIDE 0.9% IVPB SCH (08:37)
[2018-06-06] MEDS: Fluconazole In NaCl,Iso-Osm 200 MG in Premix Bag 1 BAG IVPB SCH (09:59)
[2018-06-06] MEDS ORDERED: Morphine 4 MG/ML VIAL SLOW IVP SCH (11:15)
--- NOTE | 2018-06-06 11:46 | CON ---
DATE OF CONSULTATION: 06/06/2018 REASON FOR CONSULTATION: Ms. Mendiola is a 63-year-old female with what appears to be a limited sta ge small cell carcinoma of the lung. I was asked to see her for consideration of radiation therapy. HISTORY OF PRESENT ILLNESS: Ms. Mendiola's history is quite complicated. She is currently intubate d and sedated and not able to give a history. She was recently transferred from the hospital in [facility] to our Intensive Care Unit. Apparently, she had been on a ventilator for approximately 11 day s in [place]. Apparently, her symptoms started with abdominal pain and diarrhea for which she was treated for C. difficile. She then had some elevated liver function tests and had a CT of the abdom en that was fairly unremarkable. She got weaker and was eventually felt to have pneumonia. She had a CT angiogram which suggested a right upper lobe atelectasis with extensive adenopathy and narrowing of the main stem bronchus. She was intubated for what was felt to be bilateral pneumonia, at least some of which may be postobstructive. She underwent a bronchoscopy and there was extrinsic compressi on of the right main stem bronchus and complete occlusion and extrinsic compression of the right uppe r lobe bronchus. The bronchus intermedius also showed some compression. The right middle and right lower lobe bronchi were patent. Biopsies and brushings returned the diagnosis of small cell carcinom a of the lung. They are unable to perform IV chemotherapy in [place]. She was subsequently trans ferred to our Intensive Care Unit here for higher level of care. She has been started on chemotherap y by Medical Oncology with carboplatin and Etoposide and this is currently infusing. I was asked to see her to discuss her options with radiation therapy. Presently she is not able to give her history . PAST MEDICAL HISTORY: 1. Rheumatoid arthritis that was being treated with methotrexate and Enbrel. 2. Hypertension. 3. History of migraines. 4. Chronic obstructive pulmonary disease. 5. Status post left knee surgery. MEDICATIONS: Cefepime, DuoNeb nebulizers, Pepcid, fluconazole, Fondaparinux, Ativan p.r.n., Solu-Med rol, propofol, and morphine p.r.n. ALLERGIES: CODEINE which cause an unknown reaction. SOCIAL HISTORY: She smoked at least 1 pack per day for 50 years. She has no alcohol or drug use. FAMILY HISTORY: Her mother had non-Hodgkin's lymphoma. Her father had diabetes and coronary artery disease. There is no other family history of malignancy. REVIEW OF SYSTEMS: Unable to be obtained. PHYSICAL EXAMINATION: VITAL SIGNS: Height 5 feet 8 inches, weight 173 pounds, blood pressure is 151/68, pulse is 97, respi rations are 20 on the ventilator, O2 saturation is 91%. GENERAL: She is sedated, but does awaken to calling her name. She is well-developed and well-nouris hed. Karnofsky performance status is currently 30%. EYES: Pupils are equal, round, react to light. Extraocular movements are intact. ENT: No visible lesion in the oral cavity, although again she is not able to completely cooperate. Gingiva is intact. NECK: Supple, without cervical or supraclavicular adenopathy bilaterally. No thyromegaly. Larynx i s midline. LUNGS: Coarse breath sounds anteriorly in both lungs. Breathing is through mechanical ventilation. HEART: Regular rate and rhythm without murmur. No lower extremity edema. LYMPHATIC: No axillary or inguinal adenopathy. ABDOMEN: Bowel sounds present. Soft, nontender, nondistended. Her liver is enlarged by palpation a nd to percussion. SKIN: Without rash or purpura. NEUROLOGIC: Appears nonfocal. She is moving all extremities. RADIOLOGIC: I was able to review her CT angiogram of the chest and CT of the abdomen and pelvis from [place]. CT angiogram of the chest shows a bulky mass involving the right hilum and mediastinum. There is severe narrowing of the right main stem bronchus. There is some right upper lobe atelecta sis. She does have infiltrates in both lungs, possibly consistent with pneumonia. She has possibly a pleural effusion in the right lower lobe. It is difficult to assess her lungs for an actual lung m ass. CT of the abdomen showed no liver metastasis or evidence of distant metastatic disease. LABORATORY: Biopsy showed small cell carcinoma of the lung. CBC revealed a white blood cell count o f 7100 with hemoglobin 8.1, hematocrit 25.4, platelet count of 72,000. Chemistry group showed a chlo ride of 111. BUN was 35 with a creatinine of 0.54. Total bilirubin is 2.7 with a direct bilirubin o f 2.0. AST is 149. Alkaline phosphatase is 401. Total protein is low at 5.5. BNP is elevated at 2 22.6. LDH is elevated at 1179. ASSESSMENT: Ms. Mendiola is a 63-year-old female who is quite sick from multiple medical problems. She has been diagnosed with small cell carcinoma of the lung. Staging has not yet been completed, a lthough this may be a limited stage process. She has not yet had an MRI of the brain, although there is no reason to emergently get an MRI of the brain at this point. She also has severe chronic obstr uctive pulmonary disease. Presently per Pulmonary she is not weanable from the ventilator and from Jus Campos's note yesterday, it is not clear that the reason she is not weanable is related to the smal l cell carcinoma. She has been started on chemotherapy by Dr. Zuñiga. PLAN: I agree with chemotherapy. Hopefully, this will allow her to improve and perhaps if the mass is causing some of her issues in terms of being on the ventilator that she will be able to be weaned off the ventilator. Her treatment at this point needs to be chemotherapy. She is too ill in my opin ion to start radiation therapy nor do I think radiation therapy at this time is going to improve her situation. When she does improve, we can get an MRI of the brain to complete her staging. I would r ecommend that she have at least several cycles of chemotherapy before we consider doing radiation the rapy. We would reimage her with a CT of the chest and see the status of her disease. Depending on h ow she is doing clinically we could then consider after several cycles of chemotherapy when would be the appropriate time to initiate radiation therapy. Because she is so sick this may be a patient raymond t we have to treat sequentially with radiation therapy. The patient does live quite some distance fr here and apparently has been getting her medical care in [place] prior to this. She ultimately may want to get her radiation therapy in [place]. If she improves enough for that to be consider ed. Chemotherapy has been started and I would continue to work with Dr. Zuñiga regarding that. Hopef ully, she can be extubated and will improve and we can see her after her second cycle of chemotherapy to determine whether radiation therapy can be initiated. Again, at this time she is just too ill to undergo concurrent chemotherapy and radiation, especially since it is felt that radiation therapy wo uld not improve her clinical situation. Thank you for this interesting consultation.
--- NOTE | 2018-06-06 12:53 | PDOC.PN ---
- Subjective Encounter Start Date: 06/06/18 Encounter Start Time: 11:15 Subjective: on vent, mild sedation -: awakens but not oriented - Objective Resuscitation Status: Resuscitation Status DNR:Do Not Resuscitate MAR Reviewed: Yes Vital Signs & Weight: Vital Signs (12 hours) Temp Pulse Pulse Pulse Resp BP BP 06/06/18 12:40 78 153/65 H 06/06/18 10:33 111 H 164/75 H 06/06/18 10:00 31 H 06/06/18 08:25 97 98 151/68 H 06/06/18 08:00 98.1 F 18 06/06/18 07:51 81 164/65 H 06/06/18 06:00 20 06/06/18 04:00 97.6 F 20 06/06/18 02:00 16 06/06/18 01:28 79 06/06/18 01:27 77 23 H BP Pulse Ox Pulse Ox Pulse Ox 06/06/18 12:40 06/06/18 10:33 06/06/18 10:00 06/06/18 08:25 153/74 H 91 L 92 L 06/06/18 08:00 06/06/18 07:51 06/06/18 06:00 06/06/18 04:00 06/06/18 02:00 06/06/18 01:28 06/06/18 01:27 96 Weight Admit Weight 163 lb 2.273 oz Weight 173 lb 1.006 oz Most Recent Monitor Data Heart Rate from ECG 93 NIBP 157/64 NIBP BP-Mean 105 Respiration from ECG 15 SpO2 92 I&O: 06/05/18 06/06/18 06/07/18 06:59 06:59 06:59 Intake Total 2431 3933 560 Output Total 1135 1105 285 Balance 1296 2828 275 Result Diagrams: 06/06/18 05:25 06/06/18 05:25 Phys Exam - Physical Examination HEENT: PERRLA, moist MMs Neck: no JVD, supple Respiratory: no wheezing, no rales Cardiovascular: RRR, no significant murmur Gastrointestinal: soft, non-tender, positive bowel sounds Musculoskeletal: no edema, pulses present Neurological: non-focal, moves all 4 limbs Dx/Plan (1) Acute respiratory failure with hypoxia Code(s): J96.01 - ACUTE RESPIRATORY FAILURE WITH HYPOXIA Status: Acute (2) Small cell lung cancer Code(s): C34.90 - MALIGNANT NEOPLASM OF UNSP PART OF UNSP BRONCHUS OR LUNG Status: Acute Comment: poorly diff per histopath (3) Pancytopenia Code(s): D61.818 - OTHER PANCYTOPENIA Status: Acute (4) Moderate protein malnutrition Code(s): E44.0 - MODERATE PROTEIN-CALORIE MALNUTRITION Status: Acute (5) Muscular deconditioning Code(s): R29.898 - OTH SYMPTOMS AND SIGNS INVOLVING THE MUSCULOSKELETAL SYSTEM Status: Acute (6) H/O rheumatoid arthritis Code(s): Z87.39 - PERSONAL HISTORY OF DISEASES OF THE MS SYS AND CONN TISS Status: Chronic Comment: was on enbrel and methotrexate prior to hosp - Plan is recieving 3rd dose of etoposide this am -: likely will get trach and peg -: ng feeding, cefepime, steroids, nebs, fluconazole -: gentle iv hydration -: PT is working on bed, has foot drop as well * . D/w son over phone and gave an update. Review of Systems - Medications/Allergies Allergies/Adverse Reactions: Allergies Allergy/AdvReac Type Severity Reaction Status Date / Time codeine Allergy Verified 06/02/18 18:50 Medications: Current Medications Acetaminophen (Tylenol) 650 mg PO Q4H PRN PRN Reason: Headache/Fever or Pain Last Admin: 06/03/18 21:24 Dose: 650 mg Acetaminophen (Tylenol) 650 mg MO Q4H PRN PRN Reason: Headache/Fever or Pain Albuterol/Ipratropium (Duoneb) 3 ml NEB [id number] [facility] Last Admin: 06/06/18 10:31 Dose: 3 ml Famotidine (Pepcid) 20 mg SLOW IVP BID [facility] Last Admin: 06/06/18 07:53 Dose: 20 mg Cefepime HCl 1 gm/ Sodium (Chloride) 100 mls @ 200 mls/hr IVPB Q12HR [facility] Last Admin: 06/06/18 08:00 Dose: 100 mls Fentanyl Citrate 2,000 mcg/ (Sodium Chloride) 100 mls @ 0 mls/hr IV INF [facility]; Protocol Stop: 07/02/18 18:52 Fentanyl Citrate (Fentanyl Bolus) 250 mls @ 0 mls/hr IVPB PRN PRN PRN Reason: Breakthrough pain/agitation Stop: 07/02/18 18:52 Fluconazole/Sodium Chloride (200 mg/ Device) 100 mls @ 100 mls/hr IVPB DAILY [facility] Last Admin: 06/06/18 09:59 Dose: 100 mls Sodium Chloride (Normal Saline 0.9%) 1,000 mls @ 70 mls/hr IV .[id number] [facility] Last Admin: 06/05/18 20:54 Dose: 1,000 mls Fondaparinux 2.5 mg/ Syringe 0.2 mls @ 0 mls/hr SC DAILY@0600 [facility] Lorazepam (Ativan) 2 mg SLOW IVP Q1H PRN PRN Reason: Breakthrough agitation Stop: 07/02/18 18:52 Methylprednisolone Sodium Succinate (Solu-Medrol) 40 mg IVP BID [facility] Last Admin: 06/06/18 09:00 Dose: Not Given Morphine Sulfate (Morphine) 2 mg SLOW IVP Q1H PRN PRN Reason: BREAKTHROUGH PAIN/AGITATION Morphine Sulfate (Morphine) 4 mg SLOW IVP NOW [facility] Stop: 06/06/18 13:00 Last Admin: 06/06/18 10:35 Dose: 4 mg Discontinue Previous Narcotic Pain Medications And Benzodiazepines 1 each FS .ONE [facility] Stop: 07/02/18 18:52 Ondansetron HCl (Zofran) 4 mg IVP Q6H PRN PRN Reason: Nausea/Vomiting Propofol (Diprivan) 1,000 mg IV INF PRN; Protocol PRN Reason: TO ACHIEVE GOAL RASS Stop: 07/02/18 18:52 Last Admin: 06/05/18 19:35 Dose: 1,000 mg Propofol (Diprivan Bolus) 20 mg IV Q5MIN PRN PRN Reason: BREAKTHROUGH AGITATION Stop: 07/02/18 18:52 Sodium Chloride (Flush - Normal Saline) 10 ml IVF PRN PRN PRN Reason: Saline Flush Sodium Chloride (Flush - Normal Saline) 10 ml IVF Q12HR [facility] Last Admin: 06/06/18 10:35 Dose: 10 ml
[2018-06-06] MEDS: Propofol 1,000 MG/100 ML VIAL IV PRN (19:39)
[2018-06-06] MEDS: Sodium Chloride 0.9% 1,000 ML IV SCH (19:39)
[2018-06-06] MEDS: Dextrose 5 % And 0.9 % NaCl 1,000 ML IV SCH (22:58)
--- NOTE | 2018-06-07 01:28 | HP ---
HISTORY OF PRESENT ILLNESS: Abril Mendiola is a 63-year-old female, DNR, respiratory failure, follo wed by Dr. Brito. They have been unable to extubate her. She has known small cell lung cancer, appar ently planning to give chemotherapy. Her daughter [place] planning on leaving on Wednesday. I have been asked to see her regarding placement of a tracheostomy and PEG tube. She has been transf erred from [facility]. She has a PICC line in her right arm. ALLERGIES: CODEINE. SOCIAL HISTORY: Smoking history, 2 packs a day. Alcohol, socially. ____ PAST SURGICAL HISTORY: Hysterectomy, tonsillectomy, bronchoscopy, lung biopsies. PAST MEDICAL HISTORY: Lung cancer as noted. PHYSICAL EXAMINATION: VITAL SIGNS: Height 5 feet 8 inches, weight 173 pounds, 26 BMI, blood pressure 134/57, 90 heart rate . HEENT: Unremarkable. LUNGS: Clear to auscultation. CARDIAC: Regular rate and rhythm. ABDOMEN: Soft, nontender. No surgical scars noted. EXTREMITIES: Unremarkable. LABORATORY DATA: White count 7, hemoglobin 8.1. Basic metabolic profile unremarkable. BUN 35, crea tinine 0.54. ASSESSMENT AND PLAN: Respiratory failure. We will plan tracheostomy and PEG tube tomorrow. Risks a nd benefits discussed with son. Questions answered.
[2018-06-07] MEDS: Propofol 1,000 MG/100 ML VIAL IV PRN ×2 (05:01→18:19)
[2018-06-07 05:08] LABS: #Lymphocytes 1.4 thou/uL (1.20-3.40); #Neutrophils 3.8 thou/uL (1.40-6.50); %Basophils 0.3 % (0.0-1.0); %Eosinophils 0.3 % (0.0-10.0); %Lymphocytes 26.7 % (21.0-51.0); %Monocytes 0.6 % (0.0-10.0); %Neutrophils 72.1 % (42.0-75.0); Hemoglobin 7.8 g/dL (12.0-16.0); Mean Corpuscular HGB CONC 32.4 g/dL (32.0-36.0); Mean Corpuscular Hemoglobin 33.1 pg (27.0-31.0); Mean Platelet Volume 9.4 fL (7.4-10.4); Platelet Count 74 thou/uL (130-400); RBC Distribution Width 15.8 % (11.5-14.5); Red Blood Cell (RBC) Count 2.34 mill/uL (4.20-5.40); White Blood Cell (WBC) Count 5.2 thou/uL (4.8-10.8)
[2018-06-07 05:14] LABS: Anion Gap 10 mmol/L (10-20); BUN (Urea Nitrogen) 30 mg/dL (9.8-20.1); Calc. Creatinine Clearance 144 mL/min (70-130); Calcium 8.4 mg/dL (7.8-10.44); Carbon Dioxide 27 mmol/L (23-31); Chloride 110 mmol/L (98-107); Estimated GFR-MDRD Greater than 90; Glucose 122 mg/dL (80-115); Potassium 4.2 mmol/L (3.5-5.1); Sodium 143 mmol/L (136-145)
[2018-06-07] MEDS: FONDAPARINUX SODIUM SC SCH (06:00)
[2018-06-07 06:23] LABS: Actual Bicarbonate (HCO3a) 26.9 mEq/L (22-28); Base Excess (BEa) 2.9 mEq/L (-2.0 to +3.0); CO2 Tension 38.2 mmHg (35.0-45.0); Calcium, Ionized 1.13 mmol/L (1.12-1.30); Carboxyhemoglobin (COHb) 1.9 gm% (0.0-3.0); O2 Tension (PaO2) 82.9 mmHg (> 80.0); Potassium - ABG Lab 4.18 mmol/L (3.70-5.30); pH, Arterial 7.47 (7.35-7.45)
[2018-06-07 06:24] LABS: Puncture Site LR
[2018-06-07] MEDS: Morphine 4 MG/ML VIAL SLOW IVP PRN ×3 (07:44→20:08)
[2018-06-07] MEDS: Cefepime 1 GM in Sodium Chloride 0.9% 100 ML IVPB SCH ×2 (09:25→20:06)
[2018-06-07] MEDS: Famotidine/PF 20 mg/2ml Vial SLOW IVP SCH ×2 (09:25→20:07)
[2018-06-07] MEDS: Fluconazole In NaCl,Iso-Osm 200 MG in Premix Bag 1 BAG IVPB SCH (09:25)
--- NOTE | 2018-06-07 10:42 | PRG ---
DATE OF SERVICE: 06/07/2018 SUBJECTIVE: This is a 63-year-old female remained intubated on the vent on Diprivan and morphine as needed. She opens eyes. OBJECTIVE: VITAL SIGNS: Blood pressure /54, pulse 84, sats are 96%, respirations 20. I's and O's are 3933 in and 1105 out. CHEST: Reveals minimal rhonchi, no wheezing. CARDIAC: Normal S1, S2, no gallops. ABDOMEN: Soft. EXTREMITIES: Trace edema. IMPRESSION: 1. Respiratory failure, end-stage chronic obstructive pulmonary disease. 2. Severe deconditioning. 3. Small cell carcinoma. PLAN: She could have a trach and a PEG today. She is not weanable. I am going to do a diagnostic t herapeutic bronchoscopy post-trach and PEG. Minimize sedation, continue nutrition and PT. One-half hour critical care time.
--- NOTE | 2018-06-07 12:47 | PDOC.PN ---
- Subjective Encounter Start Date: 06/07/18 Encounter Start Time: 10:35 Subjective: opens eyes, on vent, mild sedation -: does not follow verbal stimuli - Objective Resuscitation Status: Resuscitation Status DNR:Do Not Resuscitate MAR Reviewed: Yes Vital Signs & Weight: Vital Signs (12 hours) Temp Pulse Resp BP Pulse Ox 06/07/18 10:46 88 159/66 H 06/07/18 08:00 98.5 F 20 98 06/07/18 06:53 84 137/54 L 06/07/18 06:00 23 H 06/07/18 04:00 98.4 F 21 H 06/07/18 02:25 87 25 H 96 Weight Admit Weight 163 lb 2.273 oz Weight 182 lb 8.684 oz Most Recent Monitor Data Heart Rate from ECG 88 NIBP 165/70 NIBP BP-Mean 90 Respiration from ECG 23 SpO2 96 I&O: 06/06/18 06/07/18 06/08/18 06:59 06:59 06:59 Intake Total 3933 3735 200 Output Total 1105 1427 250 Balance 2828 2308 -50 Result Diagrams: 06/07/18 04:19 06/07/18 04:19 Phys Exam - Physical Examination HEENT: PERRLA, sclera anicteric Neck: no JVD, supple Respiratory: no wheezing rhonchi++ Cardiovascular: RRR, no significant murmur Gastrointestinal: soft, non-tender, positive bowel sounds Musculoskeletal: no edema, pulses present foot drop b/l Neurological: non-focal, moves all 4 limbs Dx/Plan (1) Acute respiratory failure with hypoxia Code(s): J96.01 - ACUTE RESPIRATORY FAILURE WITH HYPOXIA Status: Acute (2) Small cell lung cancer Code(s): C34.90 - MALIGNANT NEOPLASM OF UNSP PART OF UNSP BRONCHUS OR LUNG Status: Acute Comment: poorly diff per histopath (3) Pancytopenia Code(s): D61.818 - OTHER PANCYTOPENIA Status: Acute (4) Moderate protein malnutrition Code(s): E44.0 - MODERATE PROTEIN-CALORIE MALNUTRITION Status: Acute (5) Muscular deconditioning Code(s): R29.898 - OTH SYMPTOMS AND SIGNS INVOLVING THE MUSCULOSKELETAL SYSTEM Status: Acute (6) H/O rheumatoid arthritis Code(s): Z87.39 - PERSONAL HISTORY OF DISEASES OF THE MS SYS AND CONN TISS Status: Chronic Comment: was on enbrel and methotrexate prior to hosp - Plan finished 1 course of etoposide and carboplatin -: for trach and peg today by -: continue nebs, solumedrol and cefepime -: will get diagnostic bronchoscopy after trach by -: no family in room this am, h/h, platelets and creatinine are holding up * . Review of Systems - Medications/Allergies Allergies/Adverse Reactions: Allergies Allergy/AdvReac Type Severity Reaction Status Date / Time codeine Allergy Verified 06/02/18 18:50 Medications: Current Medications Acetaminophen (Tylenol) 650 mg PO Q4H PRN PRN Reason: Headache/Fever or Pain Last Admin: 06/03/18 21:24 Dose: 650 mg Acetaminophen (Tylenol) 650 mg IN Q4H PRN PRN Reason: Headache/Fever or Pain Albuterol/Ipratropium (Duoneb) 3 ml NEB [id number] [facility] Last Admin: 06/07/18 10:46 Dose: 3 ml Famotidine (Pepcid) 20 mg SLOW IVP BID [facility] Last Admin: 06/07/18 09:25 Dose: 20 mg Cefepime HCl 1 gm/ Sodium (Chloride) 100 mls @ 200 mls/hr IVPB Q12HR [facility] Last Admin: 06/07/18 09:25 Dose: 100 mls Fentanyl Citrate 2,000 mcg/ (Sodium Chloride) 100 mls @ 0 mls/hr IV INF [facility]; Protocol Stop: 07/02/18 18:52 Fentanyl Citrate (Fentanyl Bolus) 250 mls @ 0 mls/hr IVPB PRN PRN PRN Reason: Breakthrough pain/agitation Stop: 07/02/18 18:52 Fluconazole/Sodium Chloride (200 mg/ Device) 100 mls @ 100 mls/hr IVPB DAILY [facility] Last Admin: 06/07/18 09:25 Dose: 100 mls Fondaparinux 2.5 mg/ Syringe 0.2 mls @ 0 mls/hr SC DAILY@0600 [facility] Last Admin: 06/07/18 06:00 Dose: 0.2 mls Dextrose/Sodium Chloride (D5 0.9% Ns) 1,000 mls @ 70 mls/hr IV .[id number] [facility] Last Admin: 06/06/18 22:58 Dose: 1,000 mls Lorazepam (Ativan) 2 mg SLOW IVP Q1H PRN PRN Reason: Breakthrough agitation Stop: 07/02/18 18:52 Methylprednisolone Sodium Succinate (Solu-Medrol) 40 mg IVP BID [facility] Last Admin: 06/07/18 09:25 Dose: 40 mg Morphine Sulfate (Morphine) 2 mg SLOW IVP Q1H PRN PRN Reason: BREAKTHROUGH PAIN/AGITATION Last Admin: 06/07/18 07:44 Dose: 2 mg Discontinue Previous Narcotic Pain Medications And Benzodiazepines 1 each FS .ONE [facility] Stop: 07/02/18 18:52 Ondansetron HCl (Zofran) 4 mg IVP Q6H PRN PRN Reason: Nausea/Vomiting Propofol (Diprivan) 1,000 mg IV INF PRN; Protocol PRN Reason: TO ACHIEVE GOAL RASS Stop: 07/02/18 18:52 Last Admin: 06/07/18 05:01 Dose: 1,000 mg Propofol (Diprivan Bolus) 20 mg IV Q5MIN PRN PRN Reason: BREAKTHROUGH AGITATION Stop: 07/02/18 18:52 Sodium Chloride (Flush - Normal Saline) 10 ml IVF PRN PRN PRN Reason: Saline Flush Sodium Chloride (Flush - Normal Saline) 10 ml IVF Q12HR [facility] Last Admin: 06/07/18 09:26 Dose: 10 ml
[2018-06-07] MEDS ORDERED: Vecuronium 10 MG VIAL ONE (13:43)
[2018-06-07] MEDS ORDERED: Dexamethasone 20 MG/5 ML VIAL ONE (13:43)
[2018-06-07] MEDS ORDERED: Sodium Chloride 0.9% 15 ML NEB ONE (14:24)
[2018-06-07] MEDS ORDERED: Lidocaine 2% PF Inj 2 ML VIAL ONE ×2 (15:56→16:50)
[2018-06-07] MEDS ORDERED: Bupivacaine HCl 0.5%/Epinephrine 1:200,000/PF 30 ml Vial ONE (15:56)
[2018-06-07] MEDS ORDERED: Midazolam HCl 2 mg/2 ml Vial ONE (16:02)
[2018-06-07] MEDS ORDERED: Fentanyl 100 MCG/2 ML VIAL ONE (16:02)
[2018-06-07] MEDS: Dextrose 5 % And 0.9 % NaCl 1,000 ML IV SCH ×2 (16:06→18:21)
--- NOTE | 2018-06-07 19:40 | RAD ---
FRONTAL VIEW CHEST; 06/07/18 COMPARISON: 06/05/18 INDICATION: Central line evaluation. FINDINGS: There is a left chest port with tip overlying SVC region. Right sided PICC line terminates at the reg ion of SVC. There is marked enlargement of the cardiomediastinal silhouette. Bilateral interstitial a nd alveolar opacities are present in the bilateral pleural effusions. Tracheostomy is present. No dis crete pneumothorax. IMPRESSION: Supportive line and tubes as above. Evidence of decompensated CHF with edema and pleural effusions. Recommend continued followup. POS: [facility]
--- NOTE | 2018-06-08 00:42 | OP ---
DATE OF PROCEDURE: 06/07/2018 PREOPERATIVE DIAGNOSES: Small cell lung cancer, dysphagia, malnutrition, chronic obstructive pulmona ry disease, respiratory failure, ventilator dependency. PROCEDURE: Low profile MediPort left subclavian vein. Fluoroscopy used. A #8 Shiley low pressure c uff tracheostomy. Percutaneous endoscopic gastrostomy tube. SURGEON: Ba Zelaya M.D. ANESTHESIA: General. Local 0.5% Marcaine with epinephrine. PROCEDURE IN DETAIL: The patient was taken to the operating room where under general anesthesia in s upine position, neck and chest prepped with ChloraPrep, draped in routine fashion. Left infraclavicu lar subclavian approach made to cannulate the left subclavian vein. J-wire threaded. Trocar cathete r removed. Skin incised and enlarged sharply, and subcutaneous pocket created with blunt and sharp d issection using cautery for hemostasis. Dilator and pull-away sheath placed over the J-wire and supe rior vena cava, and dilator and J-wire removed. Catheter placed with pull-away sheath and pull-away sheath removed. Fluoroscopically, catheter tip placed in optimal position in the superior vena cava, tailored to length, connected to the MediPort placed in subcutaneous pocket, secured with 2 interrup honey sutures of 3-0 Prolene. Subcutaneous tissues approximated with 3-0 Monocryl, skin with subdermal 4-0 Monocryl and DermaGlue applied. MediPort accessed with a Wright needle, aspirated blood, and flu shed with heparinized saline solution. Fluoroscopic images revealed good line placement. Incision made supraclavicular in the midline neck, carried down to skin and subcutaneous tissue, plat ysma, identifying the strap muscles reflecting them laterally, identifying the trachea below the cric oid, dividing the isthmus of thyroid obtaining good hemostasis and stay sutures of 3-0 Prolene placed on either side of the trachea and air knots tied and secured to the anterior chest wall with Op-Site and Mastisol. Anterior window of the trachea resected over two cartilaginous rings below the cricoi d and endotracheal tube visualized withdrawn and #8 Shiley low pressure cuff placed in the trachea in direct visualization a balloon inflated and then incision closed with bilateral skin approximation w ith 3-0 Prolene. Tracheostomy appliance secured to skin with 3-0 Prolene. Sterile dressings applied . Endoscope placed per os under direct visualization, snare device passed in the stomach and noting goo d indentation of left lateral subcostal. Liver felt to be enlarged. It was avoided. A stab incisio n made after ChloraPrep and trocar needle introduced percutaneously into the gastric lumen, visualize d endoscopically placing a snare in it and passing the wire grasping the wire with a snare bringing t he wire out the mouth, removing the trocar catheter. Wire connected to the feeding tube device, pull ed back down the esophagus and the stomach, have been removed the endoscope. Tube secured to the abd ominal wall with a fixation device, and feeding device is secured. The patient tolerated the procedu re well.
[2018-06-08] MEDS: Morphine 4 MG/ML VIAL SLOW IVP PRN ×4 (02:44→21:07)
[2018-06-08] MEDS: Propofol 1,000 MG/100 ML VIAL IV PRN (03:49)
[2018-06-08 04:36] LABS: Anion Gap 10 mmol/L (10-20); BUN (Urea Nitrogen) 24 mg/dL (9.8-20.1); Calc. Creatinine Clearance 153 mL/min (70-130); Calcium 8.5 mg/dL (7.8-10.44); Carbon Dioxide 27 mmol/L (23-31); Chloride 108 mmol/L (98-107); Estimated GFR-MDRD Greater than 90; Glucose 161 mg/dL (80-115); Potassium 4.1 mmol/L (3.5-5.1); Sodium 141 mmol/L (136-145)
[2018-06-08 04:47] LABS: #Lymphocytes 0.9 thou/uL (1.20-3.40); #Neutrophils 3.2 thou/uL (1.40-6.50); %Basophils 0.3 % (0.0-1.0); %Eosinophils 0.2 % (0.0-10.0); %Monocytes 0.3 % (0.0-10.0); %Neutrophils 77.3 % (42.0-75.0); Hemoglobin 7.6 g/dL (12.0-16.0); Mean Corpuscular Hemoglobin 33.5 pg (27.0-31.0); Mean Platelet Volume 9.5 fL (7.4-10.4); Platelet Count 71 thou/uL (130-400); RBC Distribution Width 15.3 % (11.5-14.5); Red Blood Cell (RBC) Count 2.28 mill/uL (4.20-5.40); White Blood Cell (WBC) Count 4.2 thou/uL (4.8-10.8)
[2018-06-08] MEDS: FONDAPARINUX SODIUM SC SCH (06:43)
[2018-06-08] MEDS: Dextrose 5 % And 0.9 % NaCl 1,000 ML IV SCH (06:47)
[2018-06-08 07:18] LABS: Actual Bicarbonate (HCO3a) 25.9 mEq/L (22-28); Base Excess (BEa) 2.4 mEq/L (-2.0 to +3.0); CO2 Tension 35.3 mmHg (35.0-45.0); Calcium, Ionized 1.14 mmol/L (1.12-1.30); Carboxyhemoglobin (COHb) 1.8 gm% (0.0-3.0); O2 Tension (PaO2) 102.7 mmHg (> 80.0); Potassium - ABG Lab 3.99 mmol/L (3.70-5.30); pH, Arterial 7.48 (7.35-7.45)
[2018-06-08 07:19] LABS: Puncture Site RR
[2018-06-08 07:20] LABS: ALV-art Gradient 138.375 (0-20)
[2018-06-08] MEDS ORDERED: cloNIDine 0.1 MG TAB PO PRN (08:00)
[2018-06-08] MEDS: Cefepime 1 GM in Sodium Chloride 0.9% 100 ML IVPB SCH ×2 (08:33→21:06)
[2018-06-08] MEDS: Famotidine/PF 20 mg/2ml Vial SLOW IVP SCH ×2 (08:33→21:06)
--- NOTE | 2018-06-08 08:37 | RAD ---
AP CHEST: History: Ventilator dependent patient. Date: 06-08-18 Comparison: 06-07-18 FINDINGS: AP chest demonstrates a right upper extremity PICC line. The patient has a tracheostomy tube in place . A left subclavian Mediport catheter is in place. EKG leads seen over the chest. A small right sided pleural effusion is seen. Pulmonary vascular congestion seen. Areas of diffuse airspace opacity seen in both lungs, unchanged since the previous exam, possibly rep resenting pneumonia or pulmonary edema. IMPRESSION: Stable AP chest, not significantly changed since the previous exam. POS: [facility]
--- NOTE | 2018-06-08 08:48 | OP ---
DATE OF PROCEDURE: 06/08/2018 SURGEON: Dr. Elio Brito PROCEDURE: Diagnostic bronchoscopy. The patient with history of small cell carcinoma, status post chemotherapy, respiratory failure statu s post trach. PROCEDURE IN DETAIL: After consent from the daughter the flexible bronchoscope was passed using adap ter. The maria alejandra was normal, sharp. The left lung was unremarkable. Left upper and left lower lobe, no endobronchial obstruction or blood was seen. In the right main stem bronchus it was narrowed. T he upper lobe bronchus was narrowed, could see the subsegments. The right mainstem bronchus was slig htly irregular, but clearly open. The bronchus intermedius was also somewhat narrowed, but able to v isualize the basilar segments. No obvious endobronchial obstruction was seen. The area was lavaged with normal saline until completely clear. Washings sent for Gram stain and C&S. The patient tolera honey the procedure well.
[2018-06-08] MEDS ORDERED: FONDAPARINUX SODIUM SC SCH (09:00)
[2018-06-08] MEDS: Fluconazole In NaCl,Iso-Osm 200 MG in Premix Bag 1 BAG IVPB SCH (09:03)
--- NOTE | 2018-06-08 09:39 | PRG ---
DATE OF SERVICE: 06/08/2018 SUBJECTIVE: This morning, she is awake, alert and responsive, status post trach. I's and O's are 2375 in and 1805 out. OBJECTIVE: VITAL SIGNS: Blood pressure is 138/67, pulse 87, sats are 99%, respiratory rate 18. CHEST: With bilateral rhonchi and crackles. CARDIAC: Sinus tachycardia. ABDOMEN: Soft. EXTREMITIES: Reveal trace edema. NEUROLOGIC: She is awake, opens her eyes. LABORATORY DATA: White count 4000, H&H is 7 and 23, platelet count is 71. PO2 is 102, pCO2 30% ____ _, 40%. Electrolytes are normal. IMPRESSION: 1. Metastatic small cell carcinoma. 2. Severe deconditioning. 3. Chronic obstructive pulmonary disease . PLAN: Diagnostic bronchoscopy will be performed today. Try and wean as tolerated. PT, supportive c are, nutrition. One-half hour critical care time.
--- NOTE | 2018-06-08 12:36 | PDOC.PN ---
- Subjective Encounter Start Date: 06/08/18 Encounter Start Time: 11:00 Subjective: on vent, had trach done yesterday -: awake, not in distress -: follows 1 or 2 verbal stimuli - Objective Resuscitation Status: Resuscitation Status DNR:Do Not Resuscitate MAR Reviewed: Yes Vital Signs & Weight: Vital Signs (12 hours) Temp Pulse Pulse Pulse Resp BP BP 06/08/18 12:08 112 H 146/105 H 06/08/18 12:00 98.7 F 06/08/18 10:27 99 164/72 H 06/08/18 10:00 20 06/08/18 09:56 91 90 164/72 H 06/08/18 08:18 93 152/65 H 06/08/18 08:00 98.8 F 06/08/18 07:47 18 06/08/18 07:08 89 136/67 06/08/18 06:00 20 06/08/18 04:00 20 06/08/18 03:33 91 182/85 H 06/08/18 03:00 98.4 F 06/08/18 02:31 84 17 06/08/18 02:00 18 BP Pulse Ox Pulse Ox Pulse Ox 06/08/18 12:08 06/08/18 12:00 06/08/18 10:27 06/08/18 10:00 06/08/18 09:56 159/71 H 96 98 06/08/18 08:18 06/08/18 08:00 06/08/18 07:47 100 06/08/18 07:08 06/08/18 06:00 06/08/18 04:00 06/08/18 03:33 06/08/18 03:00 06/08/18 02:31 100 06/08/18 02:00 Weight Admit Weight 163 lb 2.273 oz Weight 179 lb 7.3 oz Most Recent Monitor Data Heart Rate from ECG 90 NIBP 148/70 NIBP BP-Mean 96 Respiration from ECG 17 SpO2 100 I&O: 06/07/18 06/08/18 06/09/18 06:59 06:59 06:59 Intake Total 3735 2375 130 Output Total 1427 1805 600 Balance 2308 570 -470 Result Diagrams: 06/08/18 04:09 06/08/18 04:09 Phys Exam - Physical Examination HEENT: PERRLA, moist MMs trach+, some oozing around it Respiratory: no wheezing, no rales Cardiovascular: RRR, no significant murmur Gastrointestinal: soft, no distention, positive bowel sounds peg+ Musculoskeletal: pulses present, edema present Neurological: non-focal, moves all 4 limbs Dx/Plan (1) Acute respiratory failure with hypoxia Code(s): J96.01 - ACUTE RESPIRATORY FAILURE WITH HYPOXIA Status: Acute Comment: trach, peg 06/07/2018 (2) Small cell lung cancer Code(s): C34.90 - MALIGNANT NEOPLASM OF UNSP PART OF UNSP BRONCHUS OR LUNG Status: Acute Comment: poorly diff per histopath (3) Pancytopenia Code(s): D61.818 - OTHER PANCYTOPENIA Status: Acute (4) Moderate protein malnutrition Code(s): E44.0 - MODERATE PROTEIN-CALORIE MALNUTRITION Status: Acute (5) Muscular deconditioning Code(s): R29.898 - OTH SYMPTOMS AND SIGNS INVOLVING THE MUSCULOSKELETAL SYSTEM Status: Acute (6) H/O rheumatoid arthritis Code(s): Z87.39 - PERSONAL HISTORY OF DISEASES OF THE MS SYS AND CONN TISS Status: Chronic Comment: was on enbrel and methotrexate prior to hosp - Plan peg feeding -: is on very minimal sedation -: had bronchoscopy done this am -: now has left subclavian mediport -: blood counts are stable, nebs, steroids, cefepime * . Review of Systems - Medications/Allergies Allergies/Adverse Reactions: Allergies Allergy/AdvReac Type Severity Reaction Status Date / Time codeine Allergy Verified 06/02/18 18:50 Medications: Current Medications Acetaminophen (Tylenol) 650 mg PO Q4H PRN PRN Reason: Headache/Fever or Pain Last Admin: 06/03/18 21:24 Dose: 650 mg Acetaminophen (Tylenol) 650 mg DE Q4H PRN PRN Reason: Headache/Fever or Pain Albuterol/Ipratropium (Duoneb) 3 ml NEB [id number] [facility] Last Admin: 06/08/18 10:25 Dose: 3 ml Clonidine (Catapres) 0.1 mg PO Q4H PRN PRN Reason: Blood Pressure Famotidine (Pepcid) 20 mg SLOW IVP BID [facility] Last Admin: 06/08/18 08:33 Dose: 20 mg Cefepime HCl 1 gm/ Sodium (Chloride) 100 mls @ 200 mls/hr IVPB Q12HR [facility] Last Admin: 06/08/18 08:33 Dose: 100 mls Fentanyl Citrate 2,000 mcg/ (Sodium Chloride) 100 mls @ 0 mls/hr IV INF [facility]; Protocol Stop: 07/02/18 18:52 Fentanyl Citrate (Fentanyl Bolus) 250 mls @ 0 mls/hr IVPB PRN PRN PRN Reason: Breakthrough pain/agitation Stop: 07/02/18 18:52 Fluconazole/Sodium Chloride (200 mg/ Device) 100 mls @ 100 mls/hr IVPB DAILY [facility] Last Admin: 06/08/18 09:03 Dose: 100 mls Dextrose/Sodium Chloride (D5 0.9% Ns) 1,000 mls @ 70 mls/hr IV .[id number] [facility] Last Admin: 06/08/18 06:47 Dose: 1,000 mls Fondaparinux 2.5 mg/ Syringe 0.2 mls @ 0 mls/hr SC 0900 [facility] Last Admin: 06/08/18 08:43 Dose: 0.2 mls Lorazepam (Ativan) 2 mg SLOW IVP Q1H PRN PRN Reason: Breakthrough agitation Stop: 07/02/18 18:52 Methylprednisolone Sodium Succinate (Solu-Medrol) 40 mg IVP DAILY [facility] Last Admin: 06/08/18 08:18 Dose: 40 mg Morphine Sulfate (Morphine) 2 mg SLOW IVP Q1H PRN PRN Reason: BREAKTHROUGH PAIN/AGITATION Last Admin: 06/08/18 02:44 Dose: 2 mg Discontinue Previous Narcotic Pain Medications And Benzodiazepines 1 each FS .ONE [facility] Stop: 07/02/18 18:52 Ondansetron HCl (Zofran) 4 mg IVP Q6H PRN PRN Reason: Nausea/Vomiting Propofol (Diprivan) 1,000 mg IV INF PRN; Protocol PRN Reason: TO ACHIEVE GOAL RASS Stop: 07/02/18 18:52 Last Admin: 06/08/18 03:49 Dose: 1,000 mg Propofol (Diprivan Bolus) 20 mg IV Q5MIN PRN PRN Reason: BREAKTHROUGH AGITATION Stop: 07/02/18 18:52 Sodium Chloride (Flush - Normal Saline) 10 ml IVF PRN PRN PRN Reason: Saline Flush Sodium Chloride (Flush - Normal Saline) 10 ml IVF Q12HR [facility] Last Admin: 06/08/18 08:35 Dose: 10 ml
--- NOTE | 2018-06-08 14:59 | PRG ---
DATE OF SERVICE: 06/08/2018 SUBJECTIVE: Abril Mendiola is doing well today. Ventilator is off. She is on a trach collar. OBJECTIVE: ABDOMEN: Soft, nontender. Tube feedings initiated. LUNGS: Clear. Doing well status post tracheostomy, MediPort, and PEG tube. At this point, I will see her as needed . Please call if necessary.
[2018-06-09] MEDS: Dextrose 5 % And 0.9 % NaCl 1,000 ML IV SCH (03:07)
[2018-06-09 05:49] LABS: #Lymphocytes 1.7 thou/uL (1.20-3.40); #Monocytes 0.1 thou/uL (0.11-0.59); #Neutrophils 2.5 thou/uL (1.40-6.50); %Basophils 0.3 % (0.0-1.0); %Eosinophils 0.3 % (0.0-10.0); %Lymphocytes 39.5 % (21.0-51.0); %Monocytes 1.3 % (0.0-10.0); %Neutrophils 58.5 % (42.0-75.0); Hemoglobin 7.6 g/dL (12.0-16.0); Mean Corpuscular HGB CONC 32.1 g/dL (32.0-36.0); Mean Corpuscular Hemoglobin 33.2 pg (27.0-31.0); Mean Platelet Volume 9.9 fL (7.4-10.4); Platelet Count 62 thou/uL (130-400); RBC Distribution Width 15.6 % (11.5-14.5); White Blood Cell (WBC) Count 4.3 thou/uL (4.8-10.8)
[2018-06-09] MEDS: Morphine 4 MG/ML VIAL SLOW IVP PRN ×2 (06:21→12:10)
--- NOTE | 2018-06-09 08:47 | RAD ---
CHEST 1 VIEW: HISTORY: Dyspnea. Followup. COMPARISON: 06/08/18. FINDINGS: Cardiac silhouette magnified by projection. Pulmonary vasculature engorged. Widespread hazy parench ymal opacity with multifocal infiltrates are again demonstrated. Pleural fluid accumulating at the r ight perihilar level has changed slightly in configuration but favored to not be significantly change s overall. Lines and tubes are unchanged in position. IMPRESSION: Multifocal infiltrates, pulmonary edema, and other findings are stable. POS: [facility]
--- NOTE | 2018-06-09 09:21 | PRG ---
DATE OF SERVICE: 06/09/2018 Ms. Mendiola this morning is awake, responsive, on CPAP, in no distress. PHYSICAL EXAMINATION: VITAL SIGNS: Blood pressure 141/51, pulse 100, temperature is 99. I's and O's 3093 in, 287 out. CHEST: Chest reveals decreased breath sounds, no wheezing. CARDIAC: Normal S1, S2, no gallops. ABDOMEN: Soft, no masses. LABORATORY DATA: White count 4.3, H&H 7 and 23, platelet count is 62,000. X-ray shows a right lung mass. Bronchoscopy showed marked narrowing of the upper lobe and main stem bronchus area consistent with small cell cancer. IMPRESSION: 1. Respiratory failure. 2. Small cell cancer, status post chemotherapy. 3. Severe deconditioning. 4. Status post trach and PEG. PLAN: Continue CPAP. Once we get her on a trach collar she can be transferred out of the ICU. Nutr ition and PT. One-half hour critical care time.
[2018-06-09] MEDS: Famotidine/PF 20 mg/2ml Vial SLOW IVP SCH ×2 (09:24→20:08)
[2018-06-09] MEDS: Cefepime 1 GM in Sodium Chloride 0.9% 100 ML IVPB SCH ×2 (09:24→20:09)
[2018-06-09] MEDS: Fondaparinux Sodium 2.5 MG/0.5 ML SYRINGE SC SCH (09:25)
--- NOTE | 2018-06-09 14:07 | PDOC.PN ---
- Subjective Encounter Start Date: 06/09/18 Encounter Start Time: 11:25 Subjective: awake, follows some verbal stimuli -: is weaning with cpap trials -: moves her toes and hands, is deconditioned and cant lift her knees easily - Objective Resuscitation Status: Resuscitation Status DNR:Do Not Resuscitate MAR Reviewed: Yes Vital Signs & Weight: Vital Signs (12 hours) Temp Pulse Pulse Pulse Resp BP BP 06/09/18 12:00 99.1 F 06/09/18 08:36 73 67 134/54 L 06/09/18 08:00 17 06/09/18 07:38 108 H 144/56 H 06/09/18 07:00 99 F 06/09/18 06:00 32 H 06/09/18 04:00 98.9 F 31 H 06/09/18 02:15 103 H 150/63 H BP Pulse Ox Pulse Ox Pulse Ox 06/09/18 12:00 06/09/18 08:36 141/81 H 98 97 06/09/18 08:00 97 06/09/18 07:38 06/09/18 07:00 06/09/18 06:00 06/09/18 04:00 06/09/18 02:15 Weight Admit Weight 163 lb 2.273 oz Weight 179 lb 11.2 oz Most Recent Monitor Data Heart Rate from ECG 112 NIBP 163/77 NIBP BP-Mean 126 Respiration from ECG 27 SpO2 88 I&O: 06/08/18 06/09/18 06/10/18 06:59 06:59 06:59 Intake Total 2375 3093 100 Output Total 1805 2870 900 Balance 570 223 -800 Result Diagrams: 06/09/18 05:26 06/08/18 04:09 Phys Exam - Physical Examination HEENT: PERRLA, moist MMs Neck: no JVD trach+ Respiratory: no rales rhonchi+ Cardiovascular: RRR, no significant murmur Gastrointestinal: soft, non-tender, positive bowel sounds peg+ Musculoskeletal: no edema, pulses present Neurological: non-focal, moves all 4 limbs Dx/Plan (1) Acute respiratory failure with hypoxia Code(s): J96.01 - ACUTE RESPIRATORY FAILURE WITH HYPOXIA Status: Acute Comment: trach, peg 06/07/2018 (2) Small cell lung cancer Code(s): C34.90 - MALIGNANT NEOPLASM OF UNSP PART OF UNSP BRONCHUS OR LUNG Status: Acute Comment: poorly diff per histopath (3) Pancytopenia Code(s): D61.818 - OTHER PANCYTOPENIA Status: Acute (4) Moderate protein malnutrition Code(s): E44.0 - MODERATE PROTEIN-CALORIE MALNUTRITION Status: Acute (5) Muscular deconditioning Code(s): R29.898 - OTH SYMPTOMS AND SIGNS INVOLVING THE MUSCULOSKELETAL SYSTEM Status: Acute (6) H/O rheumatoid arthritis Code(s): Z87.39 - PERSONAL HISTORY OF DISEASES OF THE MS SYS AND CONN TISS Status: Chronic Comment: was on enbrel and methotrexate prior to hosp - Plan is weaning on trach, cpap trials -: peg feeding -: cefepime, steroids, nebs -: pancytopenia stable, mild oozing around trach site is stabilizing -: is off iv fluids, getting peg feeds, free water * . Review of Systems - Medications/Allergies Allergies/Adverse Reactions: Allergies Allergy/AdvReac Type Severity Reaction Status Date / Time codeine Allergy Verified 06/02/18 18:50 Medications: Current Medications Acetaminophen (Tylenol) 650 mg PO Q4H PRN PRN Reason: Headache/Fever or Pain Last Admin: 06/03/18 21:24 Dose: 650 mg Acetaminophen (Tylenol) 650 mg OK Q4H PRN PRN Reason: Headache/Fever or Pain Albuterol/Ipratropium (Duoneb) 3 ml NEB [id number] [facility] Last Admin: 06/09/18 10:25 Dose: 3 ml Clonidine (Catapres) 0.1 mg PO Q4H PRN PRN Reason: Blood Pressure Famotidine (Pepcid) 20 mg SLOW IVP BID [facility] Last Admin: 06/09/18 09:24 Dose: 20 mg Fondaparinux (Arixtra) 2.5 mg SC 0900 [facility] Last Admin: 06/09/18 09:25 Dose: 2.5 mg Cefepime HCl 1 gm/ Sodium (Chloride) 100 mls @ 200 mls/hr IVPB Q12HR [facility] Last Admin: 06/09/18 09:24 Dose: 100 mls Fentanyl Citrate 2,000 mcg/ (Sodium Chloride) 100 mls @ 0 mls/hr IV INF [facility]; Protocol Stop: 07/02/18 18:52 Fentanyl Citrate (Fentanyl Bolus) 250 mls @ 0 mls/hr IVPB PRN PRN PRN Reason: Breakthrough pain/agitation Stop: 07/02/18 18:52 Lorazepam (Ativan) 2 mg SLOW IVP Q1H PRN PRN Reason: Breakthrough agitation Stop: 07/02/18 18:52 Methylprednisolone Sodium Succinate (Solu-Medrol) 40 mg IVP DAILY [facility] Last Admin: 06/09/18 09:25 Dose: 40 mg Morphine Sulfate (Morphine) 2 mg SLOW IVP Q1H PRN PRN Reason: BREAKTHROUGH PAIN/AGITATION Last Admin: 06/09/18 12:10 Dose: 2 mg Discontinue Previous Narcotic Pain Medications And Benzodiazepines 1 each FS .ONE [facility] Stop: 07/02/18 18:52 Ondansetron HCl (Zofran) 4 mg IVP Q6H PRN PRN Reason: Nausea/Vomiting Propofol (Diprivan) 1,000 mg IV INF PRN; Protocol PRN Reason: TO ACHIEVE GOAL RASS Stop: 07/02/18 18:52 Last Admin: 06/08/18 03:49 Dose: 1,000 mg Propofol (Diprivan Bolus) 20 mg IV Q5MIN PRN PRN Reason: BREAKTHROUGH AGITATION Stop: 07/02/18 18:52 Sodium Chloride (Flush - Normal Saline) 10 ml IVF PRN PRN PRN Reason: Saline Flush Sodium Chloride (Flush - Normal Saline) 10 ml IVF Q12HR [facility] Last Admin: 06/09/18 09:26 Dose: 10 ml
[2018-06-10 06:04] LABS: #Lymphocytes 1.7 thou/uL (1.20-3.40); #Monocytes 0.1 thou/uL (0.11-0.59); #Neutrophils 1.7 thou/uL (1.40-6.50); %Basophils 0.6 % (0.0-1.0); %Eosinophils 0.6 % (0.0-10.0); %Lymphocytes 47.2 % (21.0-51.0); %Monocytes 3.3 % (0.0-10.0); %Neutrophils 48.3 % (42.0-75.0); Hemoglobin 7.8 g/dL (12.0-16.0); Mean Corpuscular HGB CONC 32.3 g/dL (32.0-36.0); Mean Platelet Volume 9.6 fL (7.4-10.4); Platelet Count 61 thou/uL (130-400); RBC Distribution Width 15.5 % (11.5-14.5); Red Blood Cell (RBC) Count 2.38 mill/uL (4.20-5.40); White Blood Cell (WBC) Count 3.6 thou/uL (4.8-10.8)
--- NOTE | 2018-06-10 08:26 | RAD ---
CHEST 1 VIEW: HISTORY: Dyspnea. Followup. COMPARISON: 06/09/2018. FINDINGS: Cardiac silhouette is magnified by projection. Pulmonary vasculature remains engorged with widesprea d reticulonodular interstitial prominence. Bilateral pleural fluid, including fluid tracking into th e right major fissure at the hilum are similar in appearance to the prior study. mediastinum is midl ine. Lines and tubes appear unchanged in position. No evidence of pneumothorax. IMPRESSION: Pleural fluid, pulmonary edema, and other findings are stable. POS: YARITZA
--- NOTE | 2018-06-10 09:28 | PRG ---
DATE OF SERVICE: 06/10/2018 Ms. Mendiola is a 63-year-old female status post trach and PEG. She is off the vent on a trach claudia ar. PHYSICAL EXAMINATION: VITAL SIGNS: Pulse of 108, blood pressure is 108/43, sats are 92% on room air, respiration 27. GENERAL: She is awake, but still appears to be somewhat encephalopathic. I's and O's are 1837 in, 5 325 out. CHEST: Chest reveals bilateral rhonchi and crackles. CARDIAC: Sinus tachycardia. ABDOMEN: Soft. EXTREMITIES: Trace edema. LABORATORY DATA: White count 3.6, H&H 7 and 24, platelet count is 61,000. She had a chest x-ray that shows the previously described right lung mass, right hilar mass. A small bilateral pleural effusion. IMPRESSION: 1. Small cell carcinoma, status post chemotherapy. 2. Severe end-stage chronic obstructive pulmonary disease. 3. Severe deconditioning. PLAN: Continue observation. She can be transferred to a monitored bed in the next 24-48 hours. Fur ther treatment as per Oncology. Pulmonary Critical Care will follow while in the ICU.
[2018-06-10] MEDS ORDERED: Famotidine 20 MG TAB PO SCH (10:15)
[2018-06-10] MEDS: Cefdinir 300 MG CAP PO SCH ×2 (11:02→20:29)
[2018-06-10] MEDS: Fluconazole 100 MG TAB PO SCH (11:02)
[2018-06-10] MEDS: Famotidine/PF 20 mg/2ml Vial SLOW IVP SCH (11:03)
[2018-06-10] MEDS: Fondaparinux Sodium 2.5 MG/0.5 ML SYRINGE SC SCH (12:30)
--- NOTE | 2018-06-10 13:09 | PDOC.PN ---
- Subjective Encounter Start Date: 06/10/18 Encounter Start Time: 11:30 Subjective: on trach collar, awake, responds to verbal stimuli -: is working with PT, is severely deconditioned - Objective Resuscitation Status: Resuscitation Status DNR:Do Not Resuscitate MAR Reviewed: Yes Vital Signs & Weight: Vital Signs (12 hours) Temp Pulse Pulse Pulse Resp BP BP 06/10/18 12:00 98.4 F 06/10/18 10:26 111 H 24 H 06/10/18 09:48 100 108 H 157/74 H 144/55 H 06/10/18 08:00 06/10/18 07:28 105 H 18 06/10/18 07:00 98.7 F 06/10/18 04:00 98.7 F 06/10/18 02:02 105 H 25 H Pulse Ox Pulse Ox Pulse Ox 06/10/18 12:00 06/10/18 10:26 97 06/10/18 09:48 94 L 95 06/10/18 08:00 94 L 06/10/18 07:28 96 06/10/18 07:00 06/10/18 04:00 06/10/18 02:02 96 Weight Admit Weight 163 lb 2.273 oz Weight 179 lb 11.2 oz Most Recent Monitor Data Heart Rate from ECG 112 NIBP 148/68 NIBP BP-Mean 81 Respiration from ECG 19 SpO2 100 I&O: 06/09/18 06/10/18 06/11/18 06:59 06:59 06:59 Intake Total 3093 1837 Output Total 2870 3149 4500 Balance 473 -0261 -7881 Result Diagrams: 06/10/18 05:42 06/08/18 04:09 Phys Exam - Physical Examination HEENT: PERRLA, moist MMs Neck: no JVD trach+ Respiratory: no wheezing, no rales rhonchi+ Cardiovascular: RRR, no significant murmur Gastrointestinal: soft, non-tender, positive bowel sounds peg+ Musculoskeletal: no edema, pulses present foot drop b/l present on admission Neurological: non-focal, moves all 4 limbs Dx/Plan (1) Acute respiratory failure with hypoxia Code(s): J96.01 - ACUTE RESPIRATORY FAILURE WITH HYPOXIA Status: Acute Comment: trach, peg 06/07/2018 (2) Small cell lung cancer Code(s): C34.90 - MALIGNANT NEOPLASM OF UNSP PART OF UNSP BRONCHUS OR LUNG Status: Acute Comment: poorly diff per histopath (3) Pancytopenia Code(s): D61.818 - OTHER PANCYTOPENIA Status: Acute (4) Moderate protein malnutrition Code(s): E44.0 - MODERATE PROTEIN-CALORIE MALNUTRITION Status: Acute (5) Muscular deconditioning Code(s): R29.898 - OTH SYMPTOMS AND SIGNS INVOLVING THE MUSCULOSKELETAL SYSTEM Status: Acute (6) H/O rheumatoid arthritis Code(s): Z87.39 - PERSONAL HISTORY OF DISEASES OF THE MS SYS AND CONN TISS Status: Chronic Comment: was on enbrel and methotrexate prior to hosp - Plan on omnicef, diflucan, prednisone, nebs -: to continue aggressive PT as tolerated -: has been stable on trach collar now -: continue peg feeding -: prognosis guarded * . Review of Systems - Medications/Allergies Allergies/Adverse Reactions: Allergies Allergy/AdvReac Type Severity Reaction Status Date / Time codeine Allergy Verified 06/02/18 18:50 Medications: Current Medications Acetaminophen (Tylenol) 650 mg PO Q4H PRN PRN Reason: Headache/Fever or Pain Last Admin: 06/03/18 21:24 Dose: 650 mg Acetaminophen (Tylenol) 650 mg VA Q4H PRN PRN Reason: Headache/Fever or Pain Albuterol/Ipratropium (Duoneb) 3 ml NEB [id number] [facility] Last Admin: 06/10/18 10:26 Dose: 3 ml Cefdinir (Omnicef) 300 mg PO BID [facility] Stop: 06/15/18 09:01 Last Admin: 06/10/18 11:02 Dose: 300 mg Clonidine (Catapres) 0.1 mg PO Q4H PRN PRN Reason: Blood Pressure Famotidine (Pepcid) 20 mg PO BID [facility] Fluconazole (Diflucan) 100 mg PO DAILY [facility] Stop: 06/15/18 09:01 Last Admin: 06/10/18 11:02 Dose: 100 mg Fondaparinux (Arixtra) 2.5 mg SC 0900 [facility] Last Admin: 06/10/18 12:30 Dose: 2.5 mg Fentanyl Citrate 2,000 mcg/ (Sodium Chloride) 100 mls @ 0 mls/hr IV INF [facility]; Protocol Stop: 07/02/18 18:52 Fentanyl Citrate (Fentanyl Bolus) 250 mls @ 0 mls/hr IVPB PRN PRN PRN Reason: Breakthrough pain/agitation Stop: 07/02/18 18:52 Lorazepam (Ativan) 2 mg SLOW IVP Q1H PRN PRN Reason: Breakthrough agitation Stop: 07/02/18 18:52 Morphine Sulfate (Morphine) 2 mg SLOW IVP Q1H PRN PRN Reason: BREAKTHROUGH PAIN/AGITATION Last Admin: 06/09/18 12:10 Dose: 2 mg Discontinue Previous Narcotic Pain Medications And Benzodiazepines 1 each FS .ONE [facility] Stop: 07/02/18 18:52 Ondansetron HCl (Zofran) 4 mg IVP Q6H PRN PRN Reason: Nausea/Vomiting Prednisone (Prednisone) 20 mg PO QAM-[facility] Propofol (Diprivan) 1,000 mg IV INF PRN; Protocol PRN Reason: TO ACHIEVE GOAL RASS Stop: 07/02/18 18:52 Last Admin: 06/08/18 03:49 Dose: 1,000 mg Propofol (Diprivan Bolus) 20 mg IV Q5MIN PRN PRN Reason: BREAKTHROUGH AGITATION Stop: 07/02/18 18:52 Sodium Chloride (Flush - Normal Saline) 10 ml IVF PRN PRN PRN Reason: Saline Flush Sodium Chloride (Flush - Normal Saline) 10 ml IVF Q12HR [facility] Last Admin: 06/10/18 11:03 Dose: 10 ml
[2018-06-10] MEDS: Famotidine 20 MG TAB PO SCH (20:29)
--- NOTE | 2018-06-11 08:04 | PRG ---
DATE OF SERVICE: 06/11/2018 SUBJECTIVE: The patient is off the ventilator, seems to be doing well, had no issues overnight. PHYSICAL EXAMINATION: VITAL SIGNS: Her temperature is 98.3, pulse 91, blood pressure 129/62, O2 sats 100% on tracheostomy collar. HEENT: Unremarkable. NECK: Trach in good position, some scant secretions. LUNGS: Clear anteriorly bilaterally. CARDIOVASCULAR: S1 and S2, regular. ABDOMEN: Soft, nontender. PEG tube in place. EXTREMITIES: Bruising over her arms. LABORATORY DATA: White blood cell count 3.6, hemoglobin 7.8, hematocrit 24.3, platelet count 61 - th at result was obtained yesterday. ASSESSMENT: 1. Small cell lung cancer. 2. Status post chemotherapy. 3. Severe end-stage chronic obstructive pulmonary disease. 4. Status post acute respiratory failure, requiring tracheostomy placement. The patient is now wean ed off mechanical ventilation. PLAN: 1. The patient can be moved down to the B floor. She mainly needs to stay in a monitored situation, because of her fresh tracheostomy. 2. PT was ordered. 3. She is continuing oral antibiotics and antifungals. 4. Recheck labs tomorrow.
[2018-06-11 08:50] LABS: Hemoglobin 7.6 g/dL (12.0-16.0); MDiff Complete? YES; Mean Corpuscular HGB CONC 33.5 g/dL (32.0-36.0); Mean Corpuscular Hemoglobin 33.5 pg (27.0-31.0); Mean Platelet Volume 8.7 fL (7.4-10.4); Platelet Count 43 thou/uL (130-400); RBC Distribution Width 15.1 % (11.5-14.5); Red Blood Cell (RBC) Count 2.26 mill/uL (4.20-5.40); White Blood Cell (WBC) Count 2.5 thou/uL (4.8-10.8)
[2018-06-11 08:51] LABS: Band 7 % (5-11); Eosinophils 2 % (0-10); Hypochromia SLIGHT = 6-15 cells (100X) (0-5/hpf); Lymphocytes 53 % (21-51); Microcytosis SLIGHT = 6-15 cells (100X) (0-5/hpf); Monocytes 6 % (0-10); Neutrophil 30 % (42-75); PLT Morphology Comment Appears Decreased; Polychromasia SLIGHT = 2-3 cells (100X) (0-2/hpf)
[2018-06-11] MEDS: Acetaminophen 325 MG TAB PO PRN ×2 (11:22→20:49)
[2018-06-11] MEDS: Cefdinir 300 MG CAP PO SCH ×2 (11:22→20:49)
[2018-06-11] MEDS: Fluconazole 100 MG TAB PO SCH (11:22)
[2018-06-11] MEDS: Famotidine 20 MG TAB PO SCH ×2 (11:22→20:49)
[2018-06-11] MEDS: predniSONE 20 MG TAB PO SCH (11:23)
--- NOTE | 2018-06-11 14:09 | PDOC.PN ---
- Subjective Encounter Start Date: 06/11/18 Encounter Start Time: 13:20 Subjective: on trach collar, awake and responds to verbal stimuli - Objective Resuscitation Status: Resuscitation Status DNR:Do Not Resuscitate MAR Reviewed: Yes Vital Signs & Weight: Vital Signs (12 hours) Temp Pulse Resp Pulse Ox 06/11/18 10:26 110 H 17 99 06/11/18 08:08 97 21 H 99 06/11/18 07:59 95 06/11/18 07:00 98.5 F 06/11/18 04:00 98.3 F 06/11/18 02:44 98 18 100 Weight Admit Weight 163 lb 2.273 oz Weight 168 lb 10.458 oz Most Recent Monitor Data Heart Rate from ECG 112 NIBP 121/57 NIBP BP-Mean 83 Respiration from ECG 15 SpO2 99 I&O: 06/10/18 06/11/18 06/12/18 06:59 06:59 06:59 Intake Total 1837 993 Output Total 5325 5390 700 [facility] -3488 -4397 -700 Result Diagrams: 06/11/18 05:42 06/08/18 04:09 Phys Exam - Physical Examination HEENT: PERRLA, sclera anicteric Neck: no JVD trach+ Respiratory: no wheezing, no rales rhonchi+ Cardiovascular: RRR, no significant murmur Gastrointestinal: soft, no distention, positive bowel sounds peg+ Musculoskeletal: no edema, pulses present Neurological: non-focal, moves all 4 limbs foot drop b/l Dx/Plan (1) Acute respiratory failure with hypoxia Code(s): J96.01 - ACUTE RESPIRATORY FAILURE WITH HYPOXIA Status: Acute Comment: trach, peg 06/07/2018 (2) Small cell lung cancer Code(s): C34.90 - MALIGNANT NEOPLASM OF UNSP PART OF UNSP BRONCHUS OR LUNG Status: Acute Comment: poorly diff per histopath (3) Pancytopenia Code(s): D61.818 - OTHER PANCYTOPENIA Status: Acute (4) Moderate protein malnutrition Code(s): E44.0 - MODERATE PROTEIN-CALORIE MALNUTRITION Status: Acute (5) Muscular deconditioning Code(s): R29.898 - OTH SYMPTOMS AND SIGNS INVOLVING THE MUSCULOSKELETAL SYSTEM Status: Acute (6) H/O rheumatoid arthritis Code(s): Z87.39 - PERSONAL HISTORY OF DISEASES OF THE MS SYS AND CONN TISS Status: Chronic Comment: was on enbrel and methotrexate prior to hosp - Plan doing well on trach collar -: tx to imcu -: on omnicef and fluconazole -: nebs, prednisone -: watch for platelet count * . Review of Systems - Medications/Allergies Allergies/Adverse Reactions: Allergies Allergy/AdvReac Type Severity Reaction Status Date / Time codeine Allergy Verified 06/02/18 18:50 Medications: Current Medications Acetaminophen (Tylenol) 650 mg PO Q4H PRN PRN Reason: Headache/Fever or Pain Last Admin: 06/11/18 11:22 Dose: 650 mg Acetaminophen (Tylenol) 650 mg OK Q4H PRN PRN Reason: Headache/Fever or Pain Albuterol/Ipratropium (Duoneb) 3 ml NEB [id number] [facility] Last Admin: 06/11/18 10:26 Dose: 3 ml Cefdinir (Omnicef) 300 mg PO BID [facility] Stop: 06/15/18 09:01 Last Admin: 06/11/18 11:22 Dose: 300 mg Clonidine (Catapres) 0.1 mg PO Q4H PRN PRN Reason: Blood Pressure Famotidine (Pepcid) 20 mg PO BID [facility] Last Admin: 06/11/18 11:22 Dose: 20 mg Fluconazole (Diflucan) 100 mg PO DAILY [facility] Stop: 06/15/18 09:01 Last Admin: 06/11/18 11:22 Dose: 100 mg Fondaparinux (Arixtra) 2.5 mg SC 0900 [facility] Last Admin: 06/10/18 12:30 Dose: 2.5 mg Morphine Sulfate (Morphine) 2 mg SLOW IVP Q1H PRN PRN Reason: BREAKTHROUGH PAIN/AGITATION Last Admin: 06/09/18 12:10 Dose: 2 mg Discontinue Previous Narcotic Pain Medications And Benzodiazepines 1 each FS .ONE [facility] Stop: 07/02/18 18:52 Ondansetron HCl (Zofran) 4 mg IVP Q6H PRN PRN Reason: Nausea/Vomiting Prednisone (Prednisone) 20 mg PO QAM-WM [facility] Last Admin: 06/11/18 11:23 Dose: 20 mg Sodium Chloride (Flush - Normal Saline) 10 ml IVF PRN PRN PRN Reason: Saline Flush Sodium Chloride (Flush - Normal Saline) 10 ml IVF Q12HR [facility] Last Admin: 06/11/18 11:23 Dose: 10 ml
[2018-06-11] MEDS: Fondaparinux Sodium 2.5 MG/0.5 ML SYRINGE SC SCH (18:42)
[2018-06-11] MEDS ORDERED: Bisacodyl 10 MG SUPP PR PRN (19:43)
[2018-06-11] MEDS: Bisacodyl 10 MG SUPP PR PRN (20:49)
[2018-06-12 04:10] LABS: Band 2 % (5-11); Hemoglobin 7.4 g/dL (12.0-16.0); Hypochromia MODERATE=16-30 cells (100X) (0-5/hpf); Lymphocytes 74 % (21-51); MDiff Complete? YES; Mean Corpuscular HGB CONC 33.4 g/dL (32.0-36.0); Mean Corpuscular Hemoglobin 33.2 pg (27.0-31.0); Mean Corpuscular Volume 99.5 fL (78.0-98.0); Mean Platelet Volume 9.4 fL (7.4-10.4); Monocytes 2 % (0-10); Neutrophil 22 % (42-75); PLT Morphology Comment Appears Decreased; Platelet Count 31 thou/uL (130-400); RBC Distribution Width 14.9 % (11.5-14.5); Red Blood Cell (RBC) Count 2.23 mill/uL (4.20-5.40); White Blood Cell (WBC) Count 3.2 thou/uL (4.8-10.8)
[2018-06-12 04:37] LABS: Anion Gap 12 mmol/L (10-20); BUN (Urea Nitrogen) 24 mg/dL (9.8-20.1); Calc. Creatinine Clearance 128 mL/min (70-130); Calcium 9.3 mg/dL (7.8-10.44); Carbon Dioxide 28 mmol/L (23-31); Chloride 100 mmol/L (98-107); Estimated GFR-MDRD Greater than 90; Glucose 121 mg/dL (80-115); Potassium 3.9 mmol/L (3.5-5.1); Sodium 136 mmol/L (136-145)
[2018-06-12] MEDS: Fluconazole 100 MG TAB PO SCH (09:29)
[2018-06-12] MEDS: predniSONE 20 MG TAB PO SCH (09:29)
[2018-06-12] MEDS: Cefdinir 300 MG CAP PO SCH ×2 (09:29→20:20)
[2018-06-12] MEDS: Famotidine 20 MG TAB PO SCH ×2 (09:29→20:20)
[2018-06-12] MEDS: Fondaparinux Sodium 2.5 MG/0.5 ML SYRINGE SC SCH (09:30)
--- NOTE | 2018-06-12 11:24 | PDOC.PN ---
- Subjective Encounter Start Date: 06/12/18 Encounter Start Time: 08:30 Subjective: awake, watching tv -: no sob - Objective Resuscitation Status: Resuscitation Status DNR:Do Not Resuscitate MAR Reviewed: Yes Vital Signs & Weight: Vital Signs (12 hours) Temp Pulse Resp BP Pulse Ox 06/12/18 10:46 95 28 H 99 06/12/18 08:00 99.1 F 61 20 114/49 L 99 06/12/18 07:40 92 24 H 99 06/12/18 07:36 100 06/12/18 03:00 97.9 F 90 22 H 114/55 L 98 06/12/18 02:36 89 20 98 06/11/18 23:47 97.9 F 85 22 H 110/47 L 98 Weight Admit Weight 163 lb 2.273 oz Weight 168 lb 10.458 oz Most Recent Monitor Data Heart Rate from ECG 112 NIBP 121/57 NIBP BP-Mean 83 Respiration from ECG 15 SpO2 99 I&O: 06/11/18 06/12/18 06/13/18 06:59 06:59 06:59 Intake Total 993 600 30 Output Total 5390 2450 Balance -4397 -1850 30 Result Diagrams: 06/12/18 03:40 06/12/18 03:40 Phys Exam - Physical Examination HEENT: PERRLA, sclera anicteric Neck: no JVD trach+ Respiratory: no wheezing, no rales Cardiovascular: RRR, no significant murmur Gastrointestinal: soft, non-tender, positive bowel sounds peg+ Musculoskeletal: no edema, pulses present Neurological: non-focal, moves all 4 limbs Dx/Plan (1) Acute respiratory failure with hypoxia Code(s): J96.01 - ACUTE RESPIRATORY FAILURE WITH HYPOXIA Status: Acute Comment: trach, peg 06/07/2018 (2) Small cell lung cancer Code(s): C34.90 - MALIGNANT NEOPLASM OF UNSP PART OF UNSP BRONCHUS OR LUNG Status: Acute Comment: poorly diff per histopath (3) Pancytopenia Code(s): D61.818 - OTHER PANCYTOPENIA Status: Acute (4) Moderate protein malnutrition Code(s): E44.0 - MODERATE PROTEIN-CALORIE MALNUTRITION Status: Acute (5) Muscular deconditioning Code(s): R29.898 - OTH SYMPTOMS AND SIGNS INVOLVING THE MUSCULOSKELETAL SYSTEM Status: Acute (6) H/O rheumatoid arthritis Code(s): Z87.39 - PERSONAL HISTORY OF DISEASES OF THE MS SYS AND CONN TISS Status: Chronic Comment: was on enbrel and methotrexate prior to hosp - Plan further imaging studies for staging per onc adv -: is stable on trach collar now -: is severely deconditioned with foot drop, needs aggressive PT/OT -: on omnicef, prednisone, nebs -: peg feeding, blood counts are slowly dropping due to chemo effect * . Review of Systems - Medications/Allergies Allergies/Adverse Reactions: Allergies Allergy/AdvReac Type Severity Reaction Status Date / Time codeine Allergy Verified 06/02/18 18:50 Medications: Current Medications Acetaminophen (Tylenol) 650 mg PO Q4H PRN PRN Reason: Headache/Fever or Pain Last Admin: 06/11/18 20:49 Dose: 650 mg Acetaminophen (Tylenol) 650 mg OR Q4H PRN PRN Reason: Headache/Fever or Pain Albuterol/Ipratropium (Duoneb) 3 ml NEB Q5EN-RE [facility] Last Admin: 06/12/18 10:46 Dose: 3 ml Bisacodyl (Dulcolax) 10 mg OR DAILYPRN PRN PRN Reason: Constipation Cefdinir (Omnicef) 300 mg PO BID [facility] Stop: 06/15/18 09:01 Last Admin: 06/12/18 09:29 Dose: 300 mg Clonidine (Catapres) 0.1 mg PO Q4H PRN PRN Reason: Blood Pressure Famotidine (Pepcid) 20 mg PO BID [facility] Last Admin: 06/12/18 09:29 Dose: 20 mg Fluconazole (Diflucan) 100 mg PO DAILY [facility] Stop: 06/15/18 09:01 Last Admin: 06/12/18 09:29 Dose: 100 mg Morphine Sulfate (Morphine) 2 mg SLOW IVP Q1H PRN PRN Reason: BREAKTHROUGH PAIN/AGITATION Last Admin: 06/09/18 12:10 Dose: 2 mg Discontinue Previous Narcotic Pain Medications And Benzodiazepines 1 each FS .ONE [facility] Stop: 07/02/18 18:52 Ondansetron HCl (Zofran) 4 mg IVP Q6H PRN PRN Reason: Nausea/Vomiting Prednisone (Prednisone) 20 mg PO QAM-WM [facility] Last Admin: 06/12/18 09:29 Dose: 20 mg Sodium Chloride (Flush - Normal Saline) 10 ml IVF PRN PRN PRN Reason: Saline Flush Sodium Chloride (Flush - Normal Saline) 10 ml IVF Q12HR [facility] Last Admin: 06/12/18 09:29 Dose: 10 ml
--- NOTE | 2018-06-12 13:31 | PRG ---
DATE OF SERVICE: 06/12/2018 SUBJECTIVE: The patient is doing reasonably well. She is up in a chair on trach collar. OBJECTIVE: VITAL SIGNS: Temperature is 99, pulse 99, respirations 21, O2 sat 94% trach collar, and blood pressu re 122/51. HEENT: Unremarkable. NECK: No JVD. Trach in good position. LUNGS: Clear. CARDIAC: S1 and S2, regular. ABDOMEN: Soft. EXTREMITIES: No edema. LABORATORY DATA: White blood cell count 3.2, hematocrit 22.1, platelet count 31. Sodium 136, potass ium 3.9, chloride 100, CO2 of 28, BUN 24, creatinine 0.5, glucose 121. ASSESSMENT: 1. Small cell lung cancer. 2. Status post trach for persistent respiratory failure. She has been weaned off the ventilator. 3. Status post chemotherapy. PLAN: She is continuing oral antibiotics and antifungals. She seems to be doing well, all things co nsidered, main issue now is placement.
[2018-06-12] MEDS: Acetaminophen 325 MG TAB PO PRN (20:34)
--- NOTE | 2018-06-13 09:16 | PRG ---
DATE OF SERVICE: 06/13/2018 SUBJECTIVE: The patient is doing reasonably well. She had no complaints. PHYSICAL EXAMINATION: VITAL SIGNS: On exam, temperature is 98.1, pulse 102, respirations 98%, blood pressure 132/61. HEENT: Unremarkable. NECK: No adenopathy or JVD. Trach in good position. LUNGS: Clear. CARDIOVASCULAR: S1 and S2, regular. ABDOMEN: Soft. EXTREMITIES: No edema. ASSESSMENT: 1. Small cell lung cancer. 2. Severe chronic obstructive pulmonary disease. 3. Status post tracheostomy and PEG tube placement. PLAN: She is continuing antibiotics and antifungals. We are basically awaiting a placement.
[2018-06-13] MEDS: Cefdinir 300 MG CAP PO SCH ×2 (09:59→21:31)
[2018-06-13] MEDS: Fluconazole 100 MG TAB PO SCH (09:59)
[2018-06-13] MEDS: Famotidine 20 MG TAB PO SCH ×3 (09:59→21:44)
[2018-06-13] MEDS: predniSONE 20 MG TAB PO SCH (09:59)
--- NOTE | 2018-06-13 12:48 | PDOC.PN ---
- Subjective Encounter Start Date: 06/13/18 Encounter Start Time: 11:20 Subjective: awake, follows verbal stimuli -: on trach collar - Objective Resuscitation Status: Resuscitation Status DNR:Do Not Resuscitate MAR Reviewed: Yes Vital Signs & Weight: Vital Signs (12 hours) Temp Pulse Resp BP Pulse Ox 06/13/18 11:17 98 18 106/49 L 99 06/13/18 11:06 97 20 98 06/13/18 08:14 98 06/13/18 07:30 98.1 F 102 H 18 132/61 98 06/13/18 03:53 97.9 F 94 17 120/53 L 100 06/13/18 02:32 98 20 98 Weight Admit Weight 163 lb 2.273 oz Weight 168 lb 10.458 oz Most Recent Monitor Data Heart Rate from ECG 112 NIBP 121/57 NIBP BP-Mean 83 Respiration from ECG 15 SpO2 99 I&O: 06/12/18 06/13/18 06/14/18 06:59 06:59 06:59 Intake Total 600 720 60 Output Total 2450 1650 Balance -1850 -930 60 Result Diagrams: 06/12/18 03:40 06/12/18 03:40 Phys Exam - Physical Examination HEENT: PERRLA, moist MMs Neck: no JVD trach+ Respiratory: no wheezing, no rales Cardiovascular: RRR, no significant murmur Gastrointestinal: soft, non-tender, positive bowel sounds peg+ Musculoskeletal: no edema, pulses present Neurological: non-focal, moves all 4 limbs b/l foot drop Dx/Plan (1) Acute respiratory failure with hypoxia Code(s): J96.01 - ACUTE RESPIRATORY FAILURE WITH HYPOXIA Status: Acute Comment: trach, peg 06/07/2018 (2) Small cell lung cancer Code(s): C34.90 - MALIGNANT NEOPLASM OF UNSP PART OF UNSP BRONCHUS OR LUNG Status: Acute Comment: poorly diff per histopath (3) Pancytopenia Code(s): D61.818 - OTHER PANCYTOPENIA Status: Acute (4) Moderate protein malnutrition Code(s): E44.0 - MODERATE PROTEIN-CALORIE MALNUTRITION Status: Acute (5) Muscular deconditioning Code(s): R29.898 - OTH SYMPTOMS AND SIGNS INVOLVING THE MUSCULOSKELETAL SYSTEM Status: Acute (6) H/O rheumatoid arthritis Code(s): Z87.39 - PERSONAL HISTORY OF DISEASES OF THE MS SYS AND CONN TISS Status: Chronic Comment: was on enbrel and methotrexate prior to hosp - Plan hemostable -: d/w , MRI brain with contrast for staging -: next cycle chemo in 10 days -: will need placement swing/rehab, has severe deconditioning -: is on omnicef, steroids, nebs and peg feeding. ?speaking valve per pulm adv * . Review of Systems - Medications/Allergies Allergies/Adverse Reactions: Allergies Allergy/AdvReac Type Severity Reaction Status Date / Time codeine Allergy Verified 06/02/18 18:50 Medications: Current Medications Acetaminophen (Tylenol) 650 mg PO Q4H PRN PRN Reason: Headache/Fever or Pain Last Admin: 06/12/18 20:34 Dose: 650 mg Acetaminophen (Tylenol) 650 mg [place] Q4H PRN PRN Reason: Headache/Fever or Pain Albuterol/Ipratropium (Duoneb) 3 ml NEB [id number] [facility] Last Admin: 06/13/18 11:06 Dose: 3 ml Bisacodyl (Dulcolax) 10 mg [place] DAILYPRN PRN PRN Reason: Constipation Cefdinir (Omnicef) 300 mg PO BID [facility] Stop: 06/15/18 09:01 Last Admin: 06/13/18 09:59 Dose: 300 mg Clonidine (Catapres) 0.1 mg PO Q4H PRN PRN Reason: Blood Pressure Famotidine (Pepcid) 20 mg PO BID [facility] Last Admin: 06/13/18 09:59 Dose: 20 mg Fluconazole (Diflucan) 100 mg PO DAILY [facility] Stop: 06/15/18 09:01 Last Admin: 06/13/18 09:59 Dose: 100 mg Morphine Sulfate (Morphine) 2 mg SLOW IVP Q1H PRN PRN Reason: BREAKTHROUGH PAIN/AGITATION Last Admin: 06/09/18 12:10 Dose: 2 mg Discontinue Previous Narcotic Pain Medications And Benzodiazepines 1 each FS .ONE [facility] Stop: 07/02/18 18:52 Ondansetron HCl (Zofran) 4 mg IVP Q6H PRN PRN Reason: Nausea/Vomiting Prednisone (Prednisone) 20 mg PO QAM-WM [facility] Last Admin: 06/13/18 09:59 Dose: 20 mg Sodium Chloride (Flush - Normal Saline) 10 ml IVF PRN PRN PRN Reason: Saline Flush Sodium Chloride (Flush - Normal Saline) 10 ml IVF Q12HR [facility] Last Admin: 06/13/18 10:00 Dose: 10 ml
[2018-06-13] MEDS ORDERED: Gadobenate Dimeglumine 529 MG/1 ML (20ML VIAL) ONE (15:18)
--- NOTE | 2018-06-13 17:06 | MRI ---
MRI BRAIN WITH AND WITHOUT CONTRAST: INDICATIONS: Small cell lung cancer. Assess for brain metastasis. TECHNIQUE: Multiplanar, multisequential imaging of the brain obtained. FINDINGS: The ventricles have normal size and position. There are mild chronic ischemic white matter changes. No evidence of restricted diffusion. No abnormal enhancement identified. The intracranial internal carotid arteries and the proximal cere bral arteries show flow voids. The dural venous sinuses appear patent. There is mucosal edema in the mastoid air cells, more prominent on the right. The paranasal sinuses appear clear, as visualized. IMPRESSION: 1. Mild chronic ischemic white matter change. 2. No evidence of enhancement or metastatic lesion. 3. Mucosal edema in the mastoid air cells, moreso on the right. POS: [facility]
[2018-06-14 05:57] LABS: Platelet Count 14 thou/uL (130-400)
[2018-06-14 06:11] LABS: ALT (SGPT) 47 U/L (8-55); AST (SGOT) 54 U/L (5-34); Albumin 3.1 g/dL (3.4-4.8); Alkaline Phosphatase 263 U/L (40-150); Anion Gap 13 mmol/L (10-20); BUN (Urea Nitrogen) 24 mg/dL (9.8-20.1); Bilirubin, Total 1.2 mg/dL (0.2-1.2); Calc. Creatinine Clearance 128 mL/min (70-130); Calcium 9.3 mg/dL (7.8-10.44); Carbon Dioxide 27 mmol/L (23-31); Chloride 100 mmol/L (98-107); Estimated GFR-MDRD Greater than 90; Globulin 2.9 g/dL (2.4-3.5); Glucose 128 mg/dL (80-115); Potassium 3.9 mmol/L (3.5-5.1); Sodium 136 mmol/L (136-145)
[2018-06-14 06:18] LABS: Band 2 % (5-11); Hemoglobin 6.7 g/dL (12.0-16.0); Hypochromia SLIGHT = 6-15 cells (100X) (0-5/hpf); Lymphocytes 70 % (21-51); MDiff Complete? YES; Mean Corpuscular HGB CONC 33.1 g/dL (32.0-36.0); Mean Corpuscular Hemoglobin 32.5 pg (27.0-31.0); Mean Corpuscular Volume 98.2 fL (78.0-98.0); Monocytes 8 % (0-10); Neutrophil 20 % (42-75); Nucleated RBC 2 % (0); PLT Morphology Comment Appears Decreased; RBC Distribution Width 15.1 % (11.5-14.5); Red Blood Cell (RBC) Count 2.04 mill/uL (4.20-5.40); White Blood Cell (WBC) Count 3.4 thou/uL (4.8-10.8)
[2018-06-14] MEDS: Cefdinir 300 MG CAP PO SCH ×2 (08:57→21:50)
[2018-06-14] MEDS: predniSONE 20 MG TAB PO SCH (08:57)
[2018-06-14] MEDS: Fluconazole 100 MG TAB PO SCH (08:57)
[2018-06-14] MEDS: Famotidine 20 MG TAB PO SCH (08:59)
--- NOTE | 2018-06-14 14:52 | PDOC.PN ---
- Subjective Encounter Start Date: 06/14/18 Encounter Start Time: 14:49 Subjective: verbalizes w gestures that she wants everything done for treatment -: denies any pain/discomfort -: tolerating TF - Objective Resuscitation Status: Resuscitation Status DNR:Do Not Resuscitate MAR Reviewed: Yes Vital Signs & Weight: Vital Signs (12 hours) Temp Pulse Pulse Resp BP BP Pulse Ox 06/14/18 14:14 96 20 92 L 06/14/18 12:40 98.0 F 101 H 16 119/48 L 97 06/14/18 12:01 97.9 F 102 H 18 122/52 L 93 L 06/14/18 11:37 98.1 F 99 16 124/52 L 95 06/14/18 11:32 98.7 F 101 H 21 H 124/52 L 90 L 06/14/18 11:06 96 20 97 06/14/18 08:10 97 22 H 92 L 06/14/18 07:58 99 06/14/18 07:26 97.4 F L 100 24 H 116/69 99 06/14/18 04:00 98.3 F 93 17 118/52 L 100 Weight Admit Weight 163 lb 2.273 oz Weight 168 lb 10.458 oz Most Recent Monitor Data Heart Rate from ECG 112 NIBP 121/57 NIBP BP-Mean 83 Respiration from ECG 15 SpO2 99 I&O: 06/13/18 06/14/18 06/15/18 06:59 06:59 06:59 Intake Total 720 1660 660 Output Total 1650 1850 Balance -930 -190 660 Result Diagrams: 06/14/18 05:39 06/14/18 05:39 Additional Labs: Microbiology 06/11/18 21:35 Stool Stool Culture - Final Yeast species 06/11/18 21:35 Stool Escherichia coli 0157 Culture - Final 06/11/18 21:35 Stool Campylobacter Antigen Assay - Final 06/11/18 21:35 Stool Shiga Toxin Test - Final 06/11/18 21:35 Stool C. difficile GDH Antigen & Toxins - Final 06/08/18 08:05 Bronchial Washing Respiratory Culture - Final Presumptive Cynthia albicans 06/03/18 10:33 Venous blood - Right Hand Blood Culture - Final NO GROWTH IN 5 DAYS 06/03/18 10:33 Venous blood - Left Hand Blood Culture - Final NO GROWTH IN 5 DAYS 06/02/18 18:15 Urine bolton catheter Urine Culture - Final Yeast species Phys Exam - Physical Examination Constitutional: NAD HEENT: PERRLA, moist MMs, sclera anicteric, oral pharynx no lesions Neck: no JVD, supple trach collar w mucus discharge Respiratory: no wheezing, no rales, no rhonchi, clear to auscultation bilateral Cardiovascular: RRR, no significant murmur Gastrointestinal: soft, non-tender, no distention, positive bowel sounds Musculoskeletal: no edema, pulses present Neurological: non-focal, normal sensation, moves all 4 limbs Psychiatric: normal affect, A&O x 3 Skin: no rash Dx/Plan (1) Acute respiratory failure with hypoxia Code(s): J96.01 - ACUTE RESPIRATORY FAILURE WITH HYPOXIA Status: Acute Comment: trach, peg 06/07/2018 (2) Pancytopenia Code(s): D61.818 - OTHER PANCYTOPENIA Status: Acute Comment: Due to chemoRx this admission (3) Moderate protein malnutrition Code(s): E44.0 - MODERATE PROTEIN-CALORIE MALNUTRITION Status: Acute (4) Muscular deconditioning Code(s): R29.898 - OT SYMPTOMS AND SIGNS INVOLVING THE MUSCULOSKELETAL SYSTEM Status: Chronic (5) Small cell lung cancer Code(s): C34.90 - MALIGNANT NEOPLASM OF UNSP PART OF UNSP BRONCHUS OR LUNG Status: Acute Comment: poorly diff per histopath.S/P Chemorx (6) H/O rheumatoid arthritis Code(s): Z87.39 - PERSONAL HISTORY OF DISEASES OF THE MS SYS AND CONN TISS Status: Chronic Comment: was on enbrel and methotrexate prior to hosp - Plan continue antibiotics, PT/OT, respiratory therapy, incentive spirometry, out of bed/ambulate, DVT proph w/SCDs Low platelets and H/.H today.likley d/t recent chemo -: transfuse PRBC and platelets. recheck in am -: hemodynamically stable. -: tolearting TF. not goal yet.cont -: cont supportive care.Trach care per PCCM. * .Next chemo in about 1 week or so.Defer to Oncology. * ready for SNIF when accpeted. * cont PO ABx and diflucan. cynthia in resp Cx and yeast in urine as well. Blood Cx negative Review of Systems - Review of Systems Constitutional: weakness, malaise Respiratory: negative: Cough, Dry, Shortness of Breath, Hemoptysis, SOB with Excertion, Pleuritic Pain, Sputum, Wheezing Cardiovascular: negative: chest pain, palpitations, orthopnea, paroxysmal nocturnal dyspnea, edema, light headedness, other Gastrointestinal: negative: Nausea, Vomiting, Abdominal Pain, Diarrhea, Constipation, Melena, Hematochezia, Other Other: Limited d/t tracheostomy status . - Medications/Allergies Allergies/Adverse Reactions: Allergies Allergy/AdvReac Type Severity Reaction Status Date / Time codeine Allergy Verified 06/02/18 18:50 Medications: Current Medications Acetaminophen (Tylenol) 650 mg PO Q4H PRN PRN Reason: Headache/Fever or Pain Last Admin: 06/12/18 20:34 Dose: 650 mg Acetaminophen (Tylenol) 650 mg [place] Q4H PRN PRN Reason: Headache/Fever or Pain Albuterol/Ipratropium (Duoneb) 3 ml NEB [id number] [facility] Last Admin: 06/14/18 14:14 Dose: 3 ml Bisacodyl (Dulcolax) 10 mg [place] DAILYPRN PRN PRN Reason: Constipation Cefdinir (Omnicef) 300 mg PO BID [facility] Stop: 06/15/18 09:01 Last Admin: 06/14/18 08:57 Dose: 300 mg Clonidine (Catapres) 0.1 mg PO Q4H PRN PRN Reason: Blood Pressure Famotidine (Pepcid) 20 mg PO BID [facility] Last Admin: 06/14/18 08:59 Dose: 20 mg Fluconazole (Diflucan) 100 mg PO DAILY [facility] Stop: 06/15/18 09:01 Last Admin: 06/14/18 08:57 Dose: 100 mg Morphine Sulfate (Morphine) 2 mg SLOW IVP Q1H PRN PRN Reason: BREAKTHROUGH PAIN/AGITATION Last Admin: 06/09/18 12:10 Dose: 2 mg Discontinue Previous Narcotic Pain Medications And Benzodiazepines 1 each FS .ONE [facility] Stop: 07/02/18 18:52 Ondansetron HCl (Zofran) 4 mg IVP Q6H PRN PRN Reason: Nausea/Vomiting Prednisone (Prednisone) 20 mg PO QAM-[facility] Last Admin: 06/14/18 08:57 Dose: 20 mg Sodium Chloride (Flush - Normal Saline) 10 ml IVF PRN PRN PRN Reason: Saline Flush Sodium Chloride (Flush - Normal Saline) 10 ml IVF Q12HR [facility] Last Admin: 06/14/18 08:58 Dose: 10 ml
--- NOTE | 2018-06-14 17:40 | PRG ---
DATE OF SERVICE: 06/14/2018. Ms. Mendiola is in no distress. She is afebrile, heart rates in the 90s, respiratory rates in the t eens to low 20s, oximetry is 95% on trach collar, blood pressure 120/50. Intake and output is negati ve 190. There is nothing recorded from the tube feeding standpoint . She had 1290 mL of tube f eeds in. She is very sedentary, so we have to be careful as she may be getting close to being overfe d. I doubt she has much in the way of calorie burn at this point. OBJECTIVE: LUNGS: Clear. HEART: Regular rhythm. ABDOMEN: Soft. LABORATORY DATA: White count 3.4, hemoglobin 6.7. She is currently receiving blood. Platelets are 14,000. IMPRESSION: 1. Pancytopenia secondary to chemotherapy. 2. Small cell lung cancer. 3. She underwent bronchoscopy on the , which showed no endobronchial obstructions, although there were narrowing of several segmental bronchi on the right. She has been evaluated for an [facility] since she will continue to require chemotherapy, this can not be given [facility], so they will not be able to accept her. We will continue to follow.
[2018-06-14 18:16] LABS: Hemoglobin 6.7 g/dL (12.0-16.0); Mean Corpuscular Hemoglobin 32.2 pg (27.0-31.0); Mean Corpuscular Volume 94.5 fL (78.0-98.0); Mean Platelet Volume 7.3 fL (7.4-10.4); Platelet Count 106 thou/uL (130-400); RBC Distribution Width 16.1 % (11.5-14.5); Red Blood Cell (RBC) Count 2.09 mill/uL (4.20-5.40); White Blood Cell (WBC) Count 3.5 thou/uL (4.8-10.8)
[2018-06-14 18:33] LABS: Band 7 % (5-11); Eosinophils 1 % (0-10); Lymphocytes 56 % (21-51); MDiff Complete? YES; Metamyelocyte 2 % (0-0); Monocytes 12 % (0-10); Myelocyte 2 % (0-0); Neutrophil 19 % (42-75); Nucleated RBC 2 % (0); PLT Morphology Comment Appears Decreased; Polychromasia SLIGHT = 2-3 cells (100X) (0-2/hpf); Reactive Lymphocytes 1 % (0-10)
[2018-06-15] MEDS: Famotidine 20 MG TAB PO SCH ×3 (00:39→21:12)
[2018-06-15 04:22] LABS: Anion Gap 12 mmol/L (10-20); BUN (Urea Nitrogen) 22 mg/dL (9.8-20.1); Calc. Creatinine Clearance 138 mL/min (70-130); Calcium 9.1 mg/dL (7.8-10.44); Carbon Dioxide 26 mmol/L (23-31); Chloride 103 mmol/L (98-107); Estimated GFR-MDRD Greater than 90; Glucose 123 mg/dL (80-115); Sodium 137 mmol/L (136-145)
[2018-06-15 04:36] LABS: Band 19 % (5-11); Eosinophils 2 % (0-10); Hemoglobin 8.5 g/dL (12.0-16.0); Lymphocytes 59 % (21-51); MDiff Complete? YES; Mean Corpuscular Hemoglobin 31.6 pg (27.0-31.0); Mean Platelet Volume 7.3 fL (7.4-10.4); Metamyelocyte 2 % (0-0); Monocytes 6 % (0-10); Myelocyte 2 % (0-0); Neutrophil 10 % (42-75); Nucleated RBC 3 % (0); PLT Morphology Comment Appears Decreased; Platelet Count 92 thou/uL (130-400); RBC Distribution Width 15.9 % (11.5-14.5); Red Blood Cell (RBC) Count 2.68 mill/uL (4.20-5.40); White Blood Cell (WBC) Count 4.8 thou/uL (4.8-10.8)
[2018-06-15] MEDS: Fluconazole 100 MG TAB PO SCH (09:18)
[2018-06-15] MEDS: predniSONE 20 MG TAB PO SCH (09:18)
[2018-06-15] MEDS: Cefdinir 300 MG CAP PO SCH (09:18)
[2018-06-15] MEDS: Ondansetron HCl/PF 4 MG/2 ML Vial IVP PRN (11:59)
--- NOTE | 2018-06-15 15:25 | PDOC.PN ---
- Subjective Encounter Start Date: 06/15/18 Encounter Start Time: 15:22 Subjective: feels poorly,nauseated,weak - Objective Resuscitation Status: Resuscitation Status DNR:Do Not Resuscitate MAR Reviewed: Yes Vital Signs & Weight: Vital Signs (12 hours) Temp Pulse Pulse Pulse Resp BP BP 06/15/18 14:18 93 14 06/15/18 10:56 97.0 F L 100 20 06/15/18 10:46 97 16 06/15/18 10:02 98 97 121/69 132/72 06/15/18 08:00 06/15/18 07:26 93 16 06/15/18 07:25 98.2 F 92 18 06/15/18 04:00 97.2 F L 86 18 BP Pulse Ox Pulse Ox Pulse Ox 06/15/18 14:18 06/15/18 10:56 121/69 100 06/15/18 10:46 06/15/18 10:02 100 95 06/15/18 08:00 100 06/15/18 07:26 06/15/18 07:25 116/47 L 97 06/15/18 04:00 125/60 100 Weight Admit Weight 163 lb 2.273 oz Weight 168 lb 10.458 oz Most Recent Monitor Data Heart Rate from ECG 86 NIBP 108/44 NIBP BP-Mean 83 Respiration from ECG 15 SpO2 99 I&O: 06/14/18 06/15/18 06/16/18 06:59 06:59 06:59 Intake Total 1660 3240 30 Output Total 1850 1600 Balance -190 1640 30 Result Diagrams: 06/15/18 03:50 06/15/18 03:50 Additional Labs: Microbiology 06/14/18 14:31 Stool Stool Occult Blood (CELE) - Final 06/11/18 21:35 Stool Stool Culture - Final Yeast species 06/11/18 21:35 Stool Escherichia coli 0157 Culture - Final 06/11/18 21:35 Stool Campylobacter Antigen Assay - Final 06/11/18 21:35 Stool Shiga Toxin Test - Final 06/11/18 21:35 Stool C. difficile GDH Antigen & Toxins - Final 06/08/18 08:05 Bronchial Washing Respiratory Culture - Final Presumptive Cynthia albicans 06/03/18 10:33 Venous blood - Right Hand Blood Culture - Final NO GROWTH IN 5 DAYS 06/03/18 10:33 Venous blood - Left Hand Blood Culture - Final NO GROWTH IN 5 DAYS 06/02/18 18:15 Urine bolton catheter Urine Culture - Final Yeast species Phys Exam - Physical Examination weak,sick looking,sitting in neuro chair but pale HEENT: PERRLA, moist MMs, sclera anicteric, oral pharynx no lesions Neck: no nodes, no JVD, supple, full ROM trach collar Respiratory: no wheezing, no rales, no rhonchi Cardiovascular: RRR, no significant murmur Gastrointestinal: soft, non-tender, no distention, positive bowel sounds Musculoskeletal: no edema, pulses present Neurological: non-focal, normal sensation, moves all 4 limbs Psychiatric: normal affect, A&O x 3 Skin: no rash Dx/Plan (1) Acute respiratory failure with hypoxia Code(s): J96.01 - ACUTE RESPIRATORY FAILURE WITH HYPOXIA Status: Acute Comment: trach, peg 06/07/2018 (2) Pancytopenia Code(s): D61.818 - OTHER PANCYTOPENIA Status: Acute Comment: Due to chemoRx this admission.s/p transfusion 06/14 (3) Moderate protein malnutrition Code(s): E44.0 - MODERATE PROTEIN-CALORIE MALNUTRITION Status: Acute (4) Muscular deconditioning Code(s): R29.898 - OTH SYMPTOMS AND SIGNS INVOLVING THE MUSCULOSKELETAL SYSTEM Status: Chronic (5) Small cell lung cancer Code(s): C34.90 - MALIGNANT NEOPLASM OF UNSP PART OF UNSP BRONCHUS OR LUNG Status: Acute Comment: poorly diff per histopath.S/P Chemorx (6) H/O rheumatoid arthritis Code(s): Z87.39 - PERSONAL HISTORY OF DISEASES OF THE MS SYS AND CONN TISS Status: Chronic Comment: was on enbrel and methotrexate prior to hosp - Plan respiratory therapy, incentive spirometry, DVT proph w/SCDs Platelet counts and H/h better today after transfusion yesterday.monitor -: Discussed w oncolgy-will need 4 cycles of chemoRx,21 days apart,for 3 days -: Placement issues as denied by multiple LTACH/rehab d/t the cost of Chemo. -: replace and recheck lytes -: reduce TF to prevent nausea. * .No pharmacological DVt prophylaxis for now given thrombocytopenia. * SCD * supportive care Review of Systems - Review of Systems Other: limited d/t Trach collar - Medications/Allergies Allergies/Adverse Reactions: Allergies Allergy/AdvReac Type Severity Reaction Status Date / Time codeine Allergy Verified 06/02/18 18:50 Medications: Current Medications Acetaminophen (Tylenol) 650 mg PO Q4H PRN PRN Reason: Headache/Fever or Pain Last Admin: 06/12/18 20:34 Dose: 650 mg Acetaminophen (Tylenol) 650 mg [place] Q4H PRN PRN Reason: Headache/Fever or Pain Albuterol/Ipratropium (Duoneb) 3 ml NEB [id number] [facility] Last Admin: 06/15/18 14:18 Dose: 3 ml Bisacodyl (Dulcolax) 10 mg [place] DAILYPRN PRN PRN Reason: Constipation Clonidine (Catapres) 0.1 mg PO Q4H PRN PRN Reason: Blood Pressure Famotidine (Pepcid) 20 mg PO BID [facility] Last Admin: 06/15/18 09:18 Dose: Not Given Melatonin (Melatonin) 3 mg PO HS [facility] Morphine Sulfate (Morphine) 2 mg SLOW IVP Q1H PRN PRN Reason: BREAKTHROUGH PAIN/AGITATION Last Admin: 06/09/18 12:10 Dose: 2 mg Discontinue Previous Narcotic Pain Medications And Benzodiazepines 1 each FS .ONE [facility] Stop: 07/02/18 18:52 Ondansetron HCl (Zofran) 4 mg IVP Q6H PRN PRN Reason: Nausea/Vomiting Last Admin: 06/15/18 11:59 Dose: 4 mg Prednisone (Prednisone) 20 mg PO QAM-WM [facility] Last Admin: 06/15/18 09:18 Dose: 20 mg Sodium Chloride (Flush - Normal Saline) 10 ml IVF PRN PRN PRN Reason: Saline Flush Sodium Chloride (Flush - Normal Saline) 10 ml IVF Q12HR [facility] Last Admin: 06/15/18 09:19 Dose: 10 ml
--- NOTE | 2018-06-15 16:03 | PRG ---
DATE OF SERVICE: 06/15/2018 SUBJECTIVE: Ms. Mendiola has no new complaints. I have explained to her today that late this week or early next week, we will change out her tracheos faiza tube to a fenestrated trach when she will be able to talk. Also explained to her that she appea rs to have a good clinical response to her chemotherapy so far based on Dr. Brito's bronchoscopy. She seems surprised to hear that. OBJECTIVE: VITAL SIGNS: She is afebrile, heart rate is 100, respiratory rate is 20, oximetry is 100%, blood pre ssure 121/69. LUNGS: Clear. HEART: Regular rhythm. ABDOMEN: Soft. LABORATORY: White count 4.8, hemoglobin 8.5, platelets 92,000. Sodium 137, potassium 4, chloride 10 3, bicarb 26, BUN 22, creatinine 0.49. IMPRESSION: 1. Respiratory failure associated with small cell lung cancer and chronic obstructive pulmonary dise ase. 2. Underlying severe chronic obstructive pulmonary disease, likely. 3. Status post tracheostomy and feeding tube placement. 4. Depression. 5. Pancytopenia secondary to chemo. PLAN: Continue supportive care, physical therapy and await her next chemo date.
[2018-06-15] MEDS: Melatonin 3 MG TAB PO SCH (21:11)
[2018-06-16 04:16] LABS: Anion Gap 13 mmol/L (10-20); BUN (Urea Nitrogen) 21 mg/dL (9.8-20.1); Calc. Creatinine Clearance 135 mL/min (70-130); Calcium 9.2 mg/dL (7.8-10.44); Carbon Dioxide 27 mmol/L (23-31); Chloride 101 mmol/L (98-107); Estimated GFR-MDRD Greater than 90; Glucose 98 mg/dL (80-115); Magnesium 1.9 mg/dL (1.6-2.6); Phosphorus 3.4 mg/dL (2.3-4.7); Potassium 3.9 mmol/L (3.5-5.1); Sodium 137 mmol/L (136-145)
[2018-06-16 04:47] LABS: Band 27 % (5-11); Eosinophils 1 % (0-10); Hemoglobin 8.3 g/dL (12.0-16.0); Lymphocytes 48 % (21-51); MDiff Complete? YES; Mean Corpuscular HGB CONC 33.9 g/dL (32.0-36.0); Mean Corpuscular Hemoglobin 31.4 pg (27.0-31.0); Mean Corpuscular Volume 92.7 fL (78.0-98.0); Mean Platelet Volume 7.9 fL (7.4-10.4); Metamyelocyte 2 % (0-0); Monocytes 6 % (0-10); Neutrophil 16 % (42-75); Nucleated RBC 1 % (0); PLT Morphology Comment Appears Decreased; Platelet Count 75 thou/uL (130-400); RBC Distribution Width 15.9 % (11.5-14.5); Red Blood Cell (RBC) Count 2.65 mill/uL (4.20-5.40); White Blood Cell (WBC) Count 8.5 thou/uL (4.8-10.8)
[2018-06-16] MEDS: predniSONE 20 MG TAB PO SCH (08:06)
[2018-06-16] MEDS: Famotidine 20 MG TAB PO SCH ×2 (08:06→21:27)
--- NOTE | 2018-06-16 14:04 | PDOC.PN ---
- Subjective Encounter Start Date: 06/16/18 Encounter Start Time: 14:03 Subjective: feels better today.denies any Nausea/vomiting/pain - Objective Resuscitation Status: Resuscitation Status DNR:Do Not Resuscitate MAR Reviewed: Yes Vital Signs & Weight: Vital Signs (12 hours) Temp Pulse Resp BP Pulse Ox 06/16/18 11:12 85 16 100 06/16/18 11:01 97.5 F L 83 16 97/53 L 96 06/16/18 08:00 98 06/16/18 07:38 98 06/16/18 07:37 87 18 98 06/16/18 07:30 97.9 F 88 18 119/50 L 99 06/16/18 04:00 97.6 F 83 18 122/47 L 100 Weight Admit Weight 163 lb 2.273 oz Weight 168 lb 10.458 oz Most Recent Monitor Data Heart Rate from ECG 86 NIBP 108/44 NIBP BP-Mean 83 Respiration from ECG 15 SpO2 99 I&O: 06/15/18 06/16/18 06/17/18 06:59 06:59 06:59 Intake Total 3240 2154 337 Output Total 1600 1300 Balance 1640 854 337 Result Diagrams: 06/16/18 03:43 06/16/18 03:43 Additional Labs: Microbiology 06/14/18 14:31 Stool Stool Occult Blood (CELE) - Final 06/11/18 21:35 Stool Stool Culture - Final Yeast species 06/11/18 21:35 Stool Escherichia coli 0157 Culture - Final 06/11/18 21:35 Stool Campylobacter Antigen Assay - Final 06/11/18 21:35 Stool Shiga Toxin Test - Final 06/11/18 21:35 Stool C. difficile GDH Antigen & Toxins - Final 06/08/18 08:05 Bronchial Washing Respiratory Culture - Final Presumptive Cynthia albicans 06/03/18 10:33 Venous blood - Right Hand Blood Culture - Final NO GROWTH IN 5 DAYS 06/03/18 10:33 Venous blood - Left Hand Blood Culture - Final NO GROWTH IN 5 DAYS 06/02/18 18:15 Urine bolton catheter Urine Culture - Final Yeast species Phys Exam - Physical Examination Constitutional: NAD lying in bed ,working w OT/PT HEENT: PERRLA, moist MMs, sclera anicteric, oral pharynx no lesions Neck: no nodes, no JVD, supple, full ROM trach Collar Respiratory: no wheezing, no rales, no rhonchi, clear to auscultation bilateral Cardiovascular: RRR, no significant murmur Gastrointestinal: soft, non-tender, no distention, positive bowel sounds Musculoskeletal: no edema, pulses present Neurological: non-focal, normal sensation, moves all 4 limbs Psychiatric: normal affect, A&O x 3 Skin: no rash Dx/Plan (1) Acute respiratory failure with hypoxia Code(s): J96.01 - ACUTE RESPIRATORY FAILURE WITH HYPOXIA Status: Acute Comment: trach, peg 06/07/2018 (2) Pancytopenia Code(s): D61.818 - OTHER PANCYTOPENIA Status: Acute Comment: Due to chemoRx this admission.s/p transfusion 06/14 (3) Moderate protein malnutrition Code(s): E44.0 - MODERATE PROTEIN-CALORIE MALNUTRITION Status: Acute (4) Muscular deconditioning Code(s): R29.898 - OTH SYMPTOMS AND SIGNS INVOLVING THE MUSCULOSKELETAL SYSTEM Status: Chronic (5) Small cell lung cancer Code(s): C34.90 - MALIGNANT NEOPLASM OF UNSP PART OF UNSP BRONCHUS OR LUNG Status: Acute Comment: poorly diff per histopath.S/P Chemorx (6) H/O rheumatoid arthritis Code(s): Z87.39 - PERSONAL HISTORY OF DISEASES OF THE MS SYS AND CONN TISS Status: Chronic Comment: was on enbrel and methotrexate prior to hosp - Plan PT/OT, respiratory therapy, incentive spirometry, out of bed/ambulate, DVT proph w/SCDs awaiting next round of chemoRx inpt -: [facility] able to Dc to rehab after the next Chemo for 4 weeks of rehab -: Next cycle can be done 3 weeks from last chemoRx -: cont trach and PEG care/reduce Tf to 5 cans /day from 7/day for tolerance -: HD stable.OT/PT.supportive care. nebs etc. * .CBc daily. counts stable for now. Review of Systems - Review of Systems Other: Limited due to trach collar - Medications/Allergies Allergies/Adverse Reactions: Allergies Allergy/AdvReac Type Severity Reaction Status Date / Time codeine Allergy Verified 06/02/18 18:50 Medications: Current Medications Acetaminophen (Tylenol) 650 mg PO Q4H PRN PRN Reason: Headache/Fever or Pain Last Admin: 06/12/18 20:34 Dose: 650 mg Acetaminophen (Tylenol) 650 mg [place] Q4H PRN PRN Reason: Headache/Fever or Pain Albuterol/Ipratropium (Duoneb) 3 ml NEB [id number] [facility] Last Admin: 06/16/18 11:12 Dose: 3 ml Bisacodyl (Dulcolax) 10 mg [place] DAILYPRN PRN PRN Reason: Constipation Clonidine (Catapres) 0.1 mg PO Q4H PRN PRN Reason: Blood Pressure Famotidine (Pepcid) 20 mg PO BID [facility] Last Admin: 06/16/18 08:06 Dose: Not Given Melatonin (Melatonin) 3 mg PO HS [facility] Last Admin: 06/15/18 21:11 Dose: 3 mg Discontinue Previous Narcotic Pain Medications And Benzodiazepines 1 each FS .ONE [facility] Stop: 07/02/18 18:52 Ondansetron HCl (Zofran) 4 mg IVP Q6H PRN PRN Reason: Nausea/Vomiting Last Admin: 06/15/18 11:59 Dose: 4 mg Prednisone (Prednisone) 20 mg PO QAM-WM [facility] Last Admin: 06/16/18 08:06 Dose: 20 mg Sodium Chloride (Flush - Normal Saline) 10 ml IVF PRN PRN PRN Reason: Saline Flush Sodium Chloride (Flush - Normal Saline) 10 ml IVF Q12HR [facility] Last Admin: 06/16/18 08:06 Dose: 10 ml
[2018-06-16] MEDS: Acetaminophen 325 MG TAB PO PRN (15:29)
[2018-06-16] MEDS: Nicotine 21 MG PATCH TOP SCH (15:29)
--- NOTE | 2018-06-16 19:48 | PRG ---
DATE OF SERVICE: 06/16/2018 SUBJECTIVE: Abril Mendiola's mood apparently waxes and wanes. She apparently was quite depressed e arlier today and this afternoon she was smiling after she had her hair washed. She was in no distres s. She is 9 days out from a tracheostomy. OBJECTIVE: VITAL SIGNS: She is afebrile, heart rate 74, respiratory rate is 21, oximetry is 100%, blood pressur e 136/74. LUNGS: Clear. HEART: Regular rhythm. ABDOMEN: Soft. IMPRESSION: 1. Small cell lung cancer, responding to chemotherapy. 2. Pancytopenia secondary to chemo. 3. Underlying chronic obstructive pulmonary disease. 4. Deconditioning within the next few days, we can consider placement of the #6 fenestrated tracheos faiza tube. Actually happy once she can start talking to the family.
[2018-06-16] MEDS: Melatonin 3 MG TAB PO SCH (21:27)
[2018-06-17] MEDS: Ondansetron HCl/PF 4 MG/2 ML Vial IVP PRN (07:46)
--- NOTE | 2018-06-17 11:04 | PRG ---
DATE OF SERVICE: 06/17/2018 Ms. Mendiola is resting comfortably. She has no new complaints. She is clearing her secretions. S he says in no respiratory distress. PHYSICAL EXAMINATION: LUNGS: Lungs are clear. HEART: Regular rhythm. ABDOMEN: Abdomen is soft and nontender. EXTREMITIES: Without asymmetry. NEUROLOGIC: Nonfocal. She is very depressed. She refuses to sit up in a chair. Unless she starts mobilizing she will not do well from a long-term care standpoint. She cannot go ho la until she is mobilized and she cannot go to a [facility] or a long-term acute care hospital unti l her chemo has completed. She will be a candidate to downsize to a fenestrated trach probably on Mo nday.
[2018-06-17] MEDS: Famotidine 20 MG TAB PO SCH ×2 (12:08→22:16)
[2018-06-17] MEDS: predniSONE 20 MG TAB PO SCH (12:08)
[2018-06-17 12:40] LABS: Anion Gap 13 mmol/L (10-20); BUN (Urea Nitrogen) 22 mg/dL (9.8-20.1); Calc. Creatinine Clearance 125 mL/min (70-130); Calcium 8.9 mg/dL (7.8-10.44); Carbon Dioxide 27 mmol/L (23-31); Chloride 100 mmol/L (98-107); Estimated GFR-MDRD Greater than 90; Glucose 104 mg/dL (80-115); Potassium 3.5 mmol/L (3.5-5.1); Sodium 136 mmol/L (136-145)
--- NOTE | 2018-06-17 14:41 | PDOC.PN ---
- Subjective Encounter Start Date: 06/17/18 Encounter Start Time: 13:21 Subjective: feels better but some nuase this morning -: RN reports increased resudual this AM -: denies any Abd pain/CP/SOB - Objective Resuscitation Status: Resuscitation Status DNR:Do Not Resuscitate MAR Reviewed: Yes Vital Signs & Weight: Vital Signs (12 hours) Temp Pulse Pulse Resp BP BP Pulse Ox 06/17/18 12:00 114 H 20 125/56 L 100 06/17/18 09:32 96 110/49 L 06/17/18 08:00 97.9 F 91 108/45 L 97 06/17/18 04:00 114 H 20 125/56 L 100 Pulse Ox 06/17/18 12:00 06/17/18 09:32 96 06/17/18 08:00 06/17/18 04:00 Weight Admit Weight 163 lb 2.273 oz Weight 168 lb 10.458 oz Most Recent Monitor Data Heart Rate from ECG 86 NIBP 108/44 NIBP BP-Mean 83 Respiration from ECG 15 SpO2 99 I&O: 06/16/18 06/17/18 06/18/18 06:59 06:59 06:59 Intake Total 2154 981 287 Output Total 1300 850 Balance 854 131 287 Result Diagrams: 06/16/18 03:43 06/17/18 04:05 Additional Labs: Microbiology 06/14/18 14:31 Stool Stool Occult Blood (CELE) - Final 06/11/18 21:35 Stool Stool Culture - Final Yeast species 06/11/18 21:35 Stool Escherichia coli 0157 Culture - Final 06/11/18 21:35 Stool Campylobacter Antigen Assay - Final 06/11/18 21:35 Stool Shiga Toxin Test - Final 06/11/18 21:35 Stool C. difficile GDH Antigen & Toxins - Final 06/08/18 08:05 Bronchial Washing Respiratory Culture - Final Presumptive Cynthia albicans 06/03/18 10:33 Venous blood - Right Hand Blood Culture - Final NO GROWTH IN 5 DAYS 06/03/18 10:33 Venous blood - Left Hand Blood Culture - Final NO GROWTH IN 5 DAYS 06/02/18 18:15 Urine bolton catheter Urine Culture - Final Yeast species Phys Exam - Physical Examination Constitutional: NAD HEENT: PERRLA, moist MMs, sclera anicteric, oral pharynx no lesions Neck: no nodes, no JVD, supple, full ROM Respiratory: no wheezing, no rales, no rhonchi, clear to auscultation bilateral Cardiovascular: RRR, no significant murmur, no rub Gastrointestinal: soft, non-tender, no distention, positive bowel sounds Musculoskeletal: no edema, pulses present Neurological: non-focal, normal sensation, moves all 4 limbs Psychiatric: normal affect, A&O x 3 Skin: no rash Dx/Plan (1) Acute respiratory failure with hypoxia Code(s): J96.01 - ACUTE RESPIRATORY FAILURE WITH HYPOXIA Status: Acute Comment: trach, peg 06/07/2018 (2) Pancytopenia Code(s): D61.818 - OTHER PANCYTOPENIA Status: Acute Comment: Due to chemoRx this admission.s/p transfusion 06/14.Monitor (3) Moderate protein malnutrition Code(s): E44.0 - MODERATE PROTEIN-CALORIE MALNUTRITION Status: Acute (4) Muscular deconditioning Code(s): R29.898 - OTH SYMPTOMS AND SIGNS INVOLVING THE MUSCULOSKELETAL SYSTEM Status: Chronic (5) Small cell lung cancer Code(s): C34.90 - MALIGNANT NEOPLASM OF UNSP PART OF UNSP BRONCHUS OR LUNG Status: Acute Comment: poorly diff per histopath.S/P Chemorx (6) H/O rheumatoid arthritis Code(s): Z87.39 - PERSONAL HISTORY OF DISEASES OF THE MS SYS AND CONN TISS Status: Chronic Comment: was on enbrel and methotrexate prior to hosp - Plan PT/OT, respiratory therapy, incentive spirometry, out of bed/ambulate, DVT proph w/SCDs Cont supportive care.awaiting next Chemo round -: Possibly can go to rehab in between 2nd & 3rd chemoRx for 3-4 weeks -: hemodynamically stable -: labs pending from this morning d/t EMR being down -: TF reduced yesterday.hold for now for high residuals. * . Review of Systems - Review of Systems Other: limited ROS due to trach collar - Medications/Allergies Allergies/Adverse Reactions: Allergies Allergy/AdvReac Type Severity Reaction Status Date / Time codeine Allergy Verified 06/02/18 18:50 Medications: Current Medications Acetaminophen (Tylenol) 650 mg PO Q4H PRN PRN Reason: Headache/Fever or Pain Last Admin: 06/16/18 15:29 Dose: 650 mg Acetaminophen (Tylenol) 650 mg SD Q4H PRN PRN Reason: Headache/Fever or Pain Albuterol/Ipratropium (Duoneb) 3 ml NEB [id number] [facility] Last Admin: 06/16/18 22:29 Dose: 3 ml Bisacodyl (Dulcolax) 10 mg SD DAILYPRN PRN PRN Reason: Constipation Clonidine (Catapres) 0.1 mg PO Q4H PRN PRN Reason: Blood Pressure Famotidine (Pepcid) 20 mg PO BID [facility] Last Admin: 06/17/18 12:08 Dose: Not Given Melatonin (Melatonin) 3 mg PO HS [facility] Last Admin: 06/16/18 21:27 Dose: 3 mg Nicotine (Nicoderm Patch) 21 mg TOP Q24HR [facility] Last Admin: 06/16/18 15:29 Dose: 21 mg Discontinue Previous Narcotic Pain Medications And Benzodiazepines 1 each FS .ONE [facility] Stop: 07/02/18 18:52 Ondansetron HCl (Zofran) 4 mg IVP Q6H PRN PRN Reason: Nausea/Vomiting Last Admin: 06/17/18 07:46 Dose: 4 mg Prednisone (Prednisone) 20 mg PO QAM-WM [facility] Last Admin: 06/17/18 12:08 Dose: Not Given Sodium Chloride (Flush - Normal Saline) 10 ml IVF PRN PRN PRN Reason: Saline Flush Sodium Chloride (Flush - Normal Saline) 10 ml IVF Q12HR [facility] Last Admin: 06/17/18 12:09 Dose: Not Given Tramadol HCl (Ultram) 50 mg PO Q6H PRN PRN Reason: Pain
[2018-06-17] MEDS: Nicotine 21 MG PATCH TOP SCH (16:30)
[2018-06-17 18:27] LABS: Hemoglobin 8.2 g/dL (12.0-16.0); Mean Corpuscular HGB CONC 32.4 g/dL (32.0-36.0); Mean Corpuscular Hemoglobin 30.4 pg (27.0-31.0); Mean Corpuscular Volume 93.7 fL (78.0-98.0); Platelet Count 66 thou/uL (130-400); RBC Distribution Width 15.2 % (11.5-14.5); Red Blood Cell (RBC) Count 2.69 mill/uL (4.20-5.40); White Blood Cell (WBC) Count 11.7 thou/uL (4.8-10.8)
[2018-06-17 18:30] LABS: Band 12 % (5-11); Lymphocytes 36 % (21-51); MDiff Complete? YES; Manual Diff?? YES; Metamyelocyte 4 % (0-0); Monocytes 5 % (0-10); Myelocyte 3 % (0-0); Neutrophil 40 % (42-75); Nucleated RBC 3 % (0); Polychromasia SLIGHT = 2-3 cells (100X) (0-2/hpf)
[2018-06-17 18:31] LABS: Anisocytosis SLIGHT = 6-15 cells (100X) (0-5/hpf); PLT Morphology Comment Appears Decreased
[2018-06-17 18:33] LABS: Mean Platelet Volume 8.8 fL (7.4-10.4)
[2018-06-17] MEDS: Melatonin 3 MG TAB PO SCH (22:16)
[2018-06-18 04:33] LABS: Anion Gap 16 mmol/L (10-20); BUN (Urea Nitrogen) 18 mg/dL (9.8-20.1); Calc. Creatinine Clearance 128 mL/min (70-130); Carbon Dioxide 23 mmol/L (23-31); Chloride 100 mmol/L (98-107); Estimated GFR-MDRD Greater than 90; Glucose 100 mg/dL (80-115); Potassium 3.8 mmol/L (3.5-5.1); Sodium 135 mmol/L (136-145)
[2018-06-18 06:02] LABS: Anisocytosis SLIGHT = 6-15 cells (100X) (0-5/hpf); Band 39 % (5-11); Hemoglobin 9.2 g/dL (12.0-16.0); Lymphocytes 22 % (21-51); MDiff Complete? YES; Mean Corpuscular HGB CONC 32.4 g/dL (32.0-36.0); Mean Corpuscular Hemoglobin 31.4 pg (27.0-31.0); Mean Corpuscular Volume 96.7 fL (78.0-98.0); Mean Platelet Volume 8.5 fL (7.4-10.4); Metamyelocyte 4 % (0-0); Monocytes 5 % (0-10); Neutrophil 29 % (42-75); Nucleated RBC 3 % (0); PLT Morphology Comment Appears Decreased; Platelet Count 71 thou/uL (130-400); RBC Distribution Width 15.5 % (11.5-14.5); Reactive Lymphocytes 1 % (0-10); Red Blood Cell (RBC) Count 2.94 mill/uL (4.20-5.40); White Blood Cell (WBC) Count 15.9 thou/uL (4.8-10.8)
[2018-06-18] MEDS: Pantoprazole 40 MG GRANULES PACKET PER TUBE SCH (09:27)
[2018-06-18] MEDS: guaiFENesin ER 600 MG TAB PO SCH ×2 (09:28→21:15)
[2018-06-18] MEDS: traMADol HCl 50 MG TAB PO PRN ×2 (09:28→17:34)
[2018-06-18] MEDS: predniSONE 20 MG TAB PO SCH (09:28)
--- NOTE | 2018-06-18 13:24 | PRG ---
DATE OF SERVICE: 06/18/2018 SERVICE: Pulmonary Medicine. INTERVAL HISTORY: The patient is doing outstanding from a respiratory standpoint. He denies any current chest pain, nausea, vomiting, fevers or chills. Otherwise, there has been no interval change to her condition. She is breathing comfortably. She has a hard time swallowing because of the size of her tracheostomy. OBJECTIVE: VITAL SIGNS: Afebrile, pulse 90, blood pressure 108/44, respirations 18, saturation 100% via T-collar on 28% FiO2. GENERAL: The patient is awake, alert, no apparent distress. LUNGS: Decent air entry. There are some coarse airway sounds that come from the upper airway. HEART: Normal rate, regular. ABDOMEN: Soft, nontender, nondistended. Bowel sounds are positive. MUSCULOSKELETAL: No cyanosis or clubbing. There is no pitting in the bilateral lower extremities. NEUROLOGIC: Grossly nonfocal. LABORATORY DATA: WBC 15.9 and up trending, hemoglobin 9.2, platelets 71,000, band count 39%. Basic metabolic profile was essentially unremarkable. Sodium 135. Respiratory cultures are growing presumptive Cynthia albicans. Urine culture was also growing Cynthia albicans from the 27. Blood cultures x2 are unremarkable. ASSESSMENT: 1. Small cell lung cancer. 2. Chronic obstructive pulmonary disease, severe. 3. Severe sepsis, increasing. 4. Sinusitis, based on MRI. DISCUSSION AND PLAN: If we see a fever or increasing signs of sepsis, hernández culture will once again be initiated. Augmentin will be started to treat sinusitis which was demonstrated on the MRI. The antifungal medication was previously discontinued after a total duration of 7 days. I will work to downsize her tracheostomy today. Pulmonary Critical Care will continue to follow along, and she can be considered for transition to the floor. Speech consult will need to be placed in the am to consider her for a PMV. JEFFREY
[2018-06-18] MEDS ORDERED: predniSONE 20 MG TAB PO SCH (13:45)
[2018-06-18] MEDS ORDERED: Nicotine 21 MG PATCH TOP SCH (14:00)
--- NOTE | 2018-06-18 15:03 | PDOC.PN ---
- Subjective Encounter Start Date: 06/18/18 Encounter Start Time: 15:01 Subjective: still some on & off nausea.no SOB -: refusing rehab ,wants to go home & shows me that she is stronger now -: no ON events - Objective Resuscitation Status: Resuscitation Status DNR:Do Not Resuscitate MAR Reviewed: Yes Vital Signs & Weight: Vital Signs (12 hours) Temp Pulse Resp BP Pulse Ox 06/18/18 11:30 97.9 F 93 18 108/44 L 100 06/18/18 10:33 90 16 99 06/18/18 08:17 95 06/18/18 07:36 97.8 F 90 19 107/46 L 100 06/18/18 06:52 98 06/18/18 06:50 88 16 98 06/18/18 04:00 83 18 118/50 L 100 06/18/18 03:13 97 Weight Admit Weight 163 lb 2.273 oz Weight 168 lb 10.458 oz Most Recent Monitor Data Heart Rate from ECG 86 NIBP 108/44 NIBP BP-Mean 83 Respiration from ECG 15 SpO2 99 I&O: 06/17/18 06/18/18 06/19/18 06:59 06:59 06:59 Intake Total 981 1397 425 Output Total 850 950 Balance 131 447 425 Result Diagrams: 06/18/18 04:00 06/18/18 04:00 Additional Labs: Microbiology 06/14/18 14:31 Stool Stool Occult Blood (CELE) - Final 06/11/18 21:35 Stool Stool Culture - Final Yeast species 06/11/18 21:35 Stool Escherichia coli 0157 Culture - Final 06/11/18 21:35 Stool Campylobacter Antigen Assay - Final 06/11/18 21:35 Stool Shiga Toxin Test - Final 06/11/18 21:35 Stool C. difficile GDH Antigen & Toxins - Final 06/08/18 08:05 Bronchial Washing Respiratory Culture - Final Presumptive Cynthia albicans 06/03/18 10:33 Venous blood - Right Hand Blood Culture - Final NO GROWTH IN 5 DAYS 06/03/18 10:33 Venous blood - Left Hand Blood Culture - Final NO GROWTH IN 5 DAYS 06/02/18 18:15 Urine bolton catheter Urine Culture - Final Yeast species Phys Exam - Physical Examination Constitutional: NAD sitting up in chair.more alert & active HEENT: PERRLA, moist MMs, sclera anicteric, oral pharynx no lesions Neck: no nodes, no JVD, supple, full ROM Respiratory: no wheezing, no rales, no rhonchi, clear to auscultation bilateral Cardiovascular: RRR, no significant murmur Gastrointestinal: soft, non-tender, no distention, positive bowel sounds Musculoskeletal: no edema, pulses present Neurological: non-focal, normal sensation, moves all 4 limbs able to write on paper in clear sentences Psychiatric: normal affect, A&O x 3 Skin: no rash Dx/Plan (1) Acute respiratory failure with hypoxia Code(s): J96.01 - ACUTE RESPIRATORY FAILURE WITH HYPOXIA Status: Acute Comment: trach, peg 06/07/2018 (2) Pancytopenia Code(s): D61.818 - OTHER PANCYTOPENIA Status: Acute Comment: Due to chemoRx this admission.s/p transfusion 06/14.Monitor (3) Moderate protein malnutrition Code(s): E44.0 - MODERATE PROTEIN-CALORIE MALNUTRITION Status: Acute (4) Muscular deconditioning Code(s): R29.898 - OTH SYMPTOMS AND SIGNS INVOLVING THE MUSCULOSKELETAL SYSTEM Status: Chronic (5) Small cell lung cancer Code(s): C34.90 - MALIGNANT NEOPLASM OF UNSP PART OF UNSP BRONCHUS OR LUNG Status: Acute Comment: poorly diff per histopath.S/P Chemorx (6) H/O rheumatoid arthritis Code(s): Z87.39 - PERSONAL HISTORY OF DISEASES OF THE MS SYS AND CONN TISS Status: Chronic Comment: was on enbrel and methotrexate prior to hosp - Plan DVT proph w/SCDs WBC trending higher but no fever & clinically much better -: off of ABx. Monitor. Last blood Cx negative -: Awaiting next cycle of chemo on next wednesday in house -: May Dc home w HH afterwards if stronger.will follow -: AM labs.trach and PEG care per protocol * . Review of Systems - Review of Systems Constitutional: weakness, malaise. negative: fever, chills, sweats, other ENT: negative: Ear Pain, Ear Discharge, Nose Pain, Nose Discharge, Nose Congestion, Mouth Pain, Mouth Swelling, Throat Pain, Throat Swelling, Other Respiratory: SOB with Excertion, Sputum. negative: Dry, Shortness of Breath, Hemoptysis, Pleuritic Pain, Wheezing Cardiovascular: negative: chest pain, palpitations, orthopnea, paroxysmal nocturnal dyspnea, edema, light headedness, other Gastrointestinal: negative: Nausea, Vomiting, Abdominal Pain, Diarrhea, Constipation, Melena, Hematochezia, Other Genitourinary: negative: Dysuria, Frequency, Incontinence, Hematuria, Retention , Other Musculoskeletal: negative: Neck Pain, Shoulder Pain, Arm Pain, Back Pain, Hand Pain, Leg Pain, Foot Pain, Other Skin: negative: Rash, Lesions, Andres, Bruising, Other Neurological: negative: Weakness, Numbness, Incoordination, Change in Speech, Confusion, Seizures, Other - Medications/Allergies Allergies/Adverse Reactions: Allergies Allergy/AdvReac Type Severity Reaction Status Date / Time codeine Allergy Verified 06/02/18 18:50 Medications: Current Medications Acetaminophen (Tylenol) 650 mg PO Q4H PRN PRN Reason: Headache/Fever or Pain Last Admin: 06/16/18 15:29 Dose: 650 mg Acetaminophen (Tylenol) 650 mg SD Q4H PRN PRN Reason: Headache/Fever or Pain Albuterol/Ipratropium (Duoneb) 3 ml NEB [id number] [facility] Amoxicillin/Clavulanate Potassium (Augmentin) 875 mg PO Q12HR [facility] Stop: 06/28/18 21:01 Bisacodyl (Dulcolax) 10 mg SD DAILYPRN PRN PRN Reason: Constipation Clonidine (Catapres) 0.1 mg PO Q4H PRN PRN Reason: Blood Pressure Guaifenesin (Mucinex) 600 mg PO Q12HR [facility] Last Admin: 06/18/18 09:28 Dose: 600 mg Melatonin (Melatonin) 3 mg PO HS [facility] Last Admin: 06/17/18 22:16 Dose: 3 mg Nicotine (Nicoderm Patch) 7 mg TOP Q24HR [facility] Discontinue Previous Narcotic Pain Medications And Benzodiazepines 1 each FS .ONE [facility] Stop: 07/02/18 18:52 Ondansetron HCl (Zofran) 4 mg IVP Q6H PRN PRN Reason: Nausea/Vomiting Last Admin: 06/17/18 07:46 Dose: 4 mg Pantoprazole Sodium (Protonix) 40 mg PER TUBE DAILY [facility] Last Admin: 06/18/18 09:27 Dose: 40 mg Prednisone (Prednisone) 10 mg PO QAM-[facility] Sodium Chloride (Flush - Normal Saline) 10 ml IVF PRN PRN PRN Reason: Saline Flush Sodium Chloride (Flush - Normal Saline) 10 ml IVF Q12HR [facility] Last Admin: 06/18/18 09:29 Dose: 10 ml Tramadol HCl (Ultram) 50 mg PO Q6H PRN PRN Reason: Pain Last Admin: 06/18/18 09:28 Dose: 50 mg
[2018-06-18] MEDS: Melatonin 3 MG TAB PO SCH (21:15)
[2018-06-18] MEDS: Amoxicillin/Potassium Clav 875 MG TAB PO SCH (21:15)
[2018-06-19 06:02] LABS: Anion Gap 11 mmol/L (10-20); BUN (Urea Nitrogen) 14 mg/dL (9.8-20.1); Calc. Creatinine Clearance 135 mL/min (70-130); Calcium 8.9 mg/dL (7.8-10.44); Carbon Dioxide 28 mmol/L (23-31); Chloride 100 mmol/L (98-107); Estimated GFR-MDRD Greater than 90; Glucose 96 mg/dL (80-115); Potassium 3.2 mmol/L (3.5-5.1); Sodium 136 mmol/L (136-145)
[2018-06-19 06:35] LABS: Anisocytosis SLIGHT = 6-15 cells (100X) (0-5/hpf); Band 36 % (5-11); Hemoglobin 7.9 g/dL (12.0-16.0); Lymphocytes 16 % (21-51); MDiff Complete? YES; Mean Corpuscular HGB CONC 33.7 g/dL (32.0-36.0); Mean Corpuscular Hemoglobin 31.6 pg (27.0-31.0); Mean Corpuscular Volume 93.6 fL (78.0-98.0); Mean Platelet Volume 8.1 fL (7.4-10.4); Metamyelocyte 3 % (0-0); Monocytes 11 % (0-10); Myelocyte 2 % (0-0); Neutrophil 32 % (42-75); Nucleated RBC 1 % (0); PLT Morphology Comment Appears Decreased; Platelet Count 52 thou/uL (130-400); RBC Distribution Width 15.3 % (11.5-14.5); Red Blood Cell (RBC) Count 2.51 mill/uL (4.20-5.40); White Blood Cell (WBC) Count 16.4 thou/uL (4.8-10.8)
[2018-06-19] MEDS: predniSONE 20 MG TAB PO SCH (09:10)
[2018-06-19] MEDS: Amoxicillin/Potassium Clav 875 MG TAB PO SCH ×2 (09:12→20:17)
[2018-06-19] MEDS: guaiFENesin ER 600 MG TAB PO SCH ×2 (09:12→20:18)
[2018-06-19] MEDS: Pantoprazole 40 MG GRANULES PACKET PER TUBE SCH (09:12)
--- NOTE | 2018-06-19 11:31 | PDOC.PN ---
- Subjective Encounter Start Date: 06/19/18 Encounter Start Time: 11:29 Subjective: feels much better. able to talk now and wants to go home -: sat at the side of bed for 10 mins yesterday unassisted - Objective Resuscitation Status: Resuscitation Status DNR:Do Not Resuscitate MAR Reviewed: Yes Vital Signs & Weight: Vital Signs (12 hours) Temp Pulse Resp BP Pulse Ox 06/19/18 07:57 97.9 F 85 16 113/56 L 96 06/19/18 06:16 96 06/19/18 06:15 85 16 96 06/19/18 04:00 98.1 F 81 16 128/68 100 06/19/18 03:56 94 L 06/19/18 02:23 76 16 94 L 06/18/18 23:30 98 Weight Admit Weight 163 lb 2.273 oz Weight 168 lb 10.458 oz Most Recent Monitor Data Heart Rate from ECG 86 NIBP 108/44 NIBP BP-Mean 83 Respiration from ECG 15 SpO2 99 I&O: 06/18/18 06/19/18 06/20/18 06:59 06:59 06:59 Intake Total 1397 1595 180 Output Total 950 200 Balance 447 1395 180 Result Diagrams: 06/19/18 05:00 06/19/18 05:00 Additional Labs: Microbiology 06/14/18 14:31 Stool Stool Occult Blood (CELE) - Final 06/11/18 21:35 Stool Stool Culture - Final Yeast species 06/11/18 21:35 Stool Escherichia coli 0157 Culture - Final 06/11/18 21:35 Stool Campylobacter Antigen Assay - Final 06/11/18 21:35 Stool Shiga Toxin Test - Final 06/11/18 21:35 Stool C. difficile GDH Antigen & Toxins - Final 06/08/18 08:05 Bronchial Washing Respiratory Culture - Final Presumptive Cynthia albicans 06/03/18 10:33 Venous blood - Right Hand Blood Culture - Final NO GROWTH IN 5 DAYS 06/03/18 10:33 Venous blood - Left Hand Blood Culture - Final NO GROWTH IN 5 DAYS 06/02/18 18:15 Urine bolton catheter Urine Culture - Final Yeast species Phys Exam - Physical Examination Constitutional: NAD HEENT: PERRLA, moist MMs, sclera anicteric, oral pharynx no lesions trach collar Neck: no nodes, no JVD, supple, full ROM Respiratory: no wheezing, no rales, no rhonchi Cardiovascular: RRR, no significant murmur Gastrointestinal: soft, non-tender, no distention, positive bowel sounds Musculoskeletal: no edema, pulses present Neurological: non-focal, normal sensation, moves all 4 limbs Psychiatric: normal affect, A&O x 3 Dx/Plan (1) Acute respiratory failure with hypoxia Code(s): J96.01 - ACUTE RESPIRATORY FAILURE WITH HYPOXIA Status: Acute Comment: trach, peg 06/07/2018 (2) Pancytopenia Code(s): D61.818 - OTHER PANCYTOPENIA Status: Acute Comment: Due to chemoRx this admission.s/p transfusion 06/14.Monitor (3) Moderate protein malnutrition Code(s): E44.0 - MODERATE PROTEIN-CALORIE MALNUTRITION Status: Acute (4) Muscular deconditioning Code(s): R29.898 - OTH SYMPTOMS AND SIGNS INVOLVING THE MUSCULOSKELETAL SYSTEM Status: Chronic (5) Small cell lung cancer Code(s): C34.90 - MALIGNANT NEOPLASM OF UNSP PART OF UNSP BRONCHUS OR LUNG Status: Acute Comment: poorly diff per histopath.S/P Chemorx (6) H/O rheumatoid arthritis Code(s): Z87.39 - PERSONAL HISTORY OF DISEASES OF THE MS SYS AND CONN TISS Status: Chronic Comment: was on enbrel and methotrexate prior to hosp - Plan continue antibiotics, PT/OT, respiratory therapy, incentive spirometry, out of bed/ambulate, DVT proph w/SCDs WBC counts trended up but no fever or S/S of infection. -: augmentin added yeteday.s/p multiple days of IV ABx -: Plans for Chemo on Wednesday then Dc ,either to rehab or HH if stronger -: CBc stable. monitor. -: cont TF as tolerated. Trach and PEG care. * . Review of Systems - Review of Systems Constitutional: weakness, malaise - Medications/Allergies Allergies/Adverse Reactions: Allergies Allergy/AdvReac Type Severity Reaction Status Date / Time codeine Allergy Verified 06/02/18 18:50 Medications: Current Medications Acetaminophen (Tylenol) 650 mg PO Q4H PRN PRN Reason: Headache/Fever or Pain Last Admin: 06/16/18 15:29 Dose: 650 mg Acetaminophen (Tylenol) 650 mg AR Q4H PRN PRN Reason: Headache/Fever or Pain Albuterol/Ipratropium (Duoneb) 3 ml NEB [id number] [facility] Last Admin: 06/19/18 06:15 Dose: 3 ml Amoxicillin/Clavulanate Potassium (Augmentin) 875 mg PO Q12HR [facility] Stop: 06/28/18 21:01 Last Admin: 06/19/18 09:12 Dose: 875 mg Bisacodyl (Dulcolax) 10 mg AR DAILYPRN PRN PRN Reason: Constipation Clonidine (Catapres) 0.1 mg PO Q4H PRN PRN Reason: Blood Pressure Guaifenesin (Mucinex) 600 mg PO Q12HR [facility] Last Admin: 06/19/18 09:12 Dose: 600 mg Melatonin (Melatonin) 3 mg PO HS [facility] Last Admin: 06/18/18 21:15 Dose: 3 mg Nicotine (Nicoderm Patch) 7 mg TOP Q24HR [facility] Last Admin: 06/18/18 15:31 Dose: Not Given Discontinue Previous Narcotic Pain Medications And Benzodiazepines 1 each FS .ONE [facility] Stop: 07/02/18 18:52 Ondansetron HCl (Zofran) 4 mg IVP Q6H PRN PRN Reason: Nausea/Vomiting Last Admin: 06/17/18 07:46 Dose: 4 mg Pantoprazole Sodium (Protonix) 40 mg PER TUBE DAILY [facility] Last Admin: 06/19/18 09:12 Dose: 40 mg Prednisone (Prednisone) 10 mg PO QAM-WM [facility] Last Admin: 06/19/18 09:10 Dose: 10 mg Sodium Chloride (Flush - Normal Saline) 10 ml IVF PRN PRN PRN Reason: Saline Flush Sodium Chloride (Flush - Normal Saline) 10 ml IVF Q12HR [facility] Last Admin: 06/19/18 09:13 Dose: 10 ml Tramadol HCl (Ultram) 50 mg PO Q6H PRN PRN Reason: Pain Last Admin: 06/18/18 17:34 Dose: 50 mg
[2018-06-19] MEDS: Bisacodyl 10 MG SUPP PR PRN (13:53)
[2018-06-19] MEDS: Nicotine 7 MG PATCH TOP SCH (14:16)
[2018-06-19] MEDS: traMADol HCl 50 MG TAB PO PRN (17:27)
[2018-06-19] MEDS: Ondansetron HCl/PF 4 MG/2 ML Vial IVP PRN (19:19)
[2018-06-19] MEDS ORDERED: Fluconazole 100 MG TAB PO SCH (19:30)
[2018-06-19] MEDS: Melatonin 3 MG TAB PO SCH (20:17)
--- NOTE | 2018-06-19 21:23 | PRG ---
DATE OF SERVICE: 06/19/2018 SERVICE: Pulmonary Medicine. INTERVAL HISTORY: The patient is doing outstanding from a respiratory standpoint. She is breathing comfortably. She has no chest discomfort, fevers , chills. There were no acute events overnight. She has no specific complaints today. PHYSICAL EXAMINATION: VITAL SIGNS: Afebrile, pulse 94, blood pressure 112/52, respirations 18, saturation 100% on T-collar. GENERAL: The patient is awake and alert, in no apparent distress. LUNGS: Excellent air entry. There is no prolonged expiratory phase. No dependent crackles or wheezing is appreciated. HEART: Normal rate, regular. ABDOMEN: Soft, nontender, nondistended. Bowel sounds are positive. MUSCULOSKELETAL: No cyanosis or clubbing. There is no pitting in the bilateral lower extremities. NEUROLOGIC: Grossly nonfocal. LABORATORY DATA: WBC is plateauing at 6.4, hemoglobin 7.9, platelets 52,000. Band count is stabilizing at 36%. Potassium 3.2. Basic metabolic profile is otherwise unremarkable. Stool, bronchial washing and a Gao catheter are all growing yeast species. ASSESSMENT: 1. Small cell lung cancer. 2. Chronic obstructive pulmonary disease, severe. 3. Severe sepsis. 4. Sinusitis, based on recent MRI. 5. Abnormal yeast isolated from urine, tracheal aspirate and stool. PLAN: We will continue Augmentin. I am going to add antifungal coverage. This was prematurely interrupted previously. Potassium will be replaced today. Tomorrow, we can give her a trial of capping her trach. MTDD
[2018-06-20 06:30] LABS: Mean Corpuscular HGB CONC 33.8 g/dL (32.0-36.0); Mean Corpuscular Hemoglobin 31.7 pg (27.0-31.0); Mean Corpuscular Volume 94.1 fL (78.0-98.0); Mean Platelet Volume 7.9 fL (7.4-10.4); Platelet Count 67 thou/uL (130-400); RBC Distribution Width 15.3 % (11.5-14.5); Red Blood Cell (RBC) Count 2.51 mill/uL (4.20-5.40); White Blood Cell (WBC) Count 14.3 thou/uL (4.8-10.8)
[2018-06-20 06:35] LABS: Anion Gap 10 mmol/L (10-20); BUN (Urea Nitrogen) 16 mg/dL (9.8-20.1); Calc. Creatinine Clearance 117 mL/min (70-130); Carbon Dioxide 27 mmol/L (23-31); Chloride 103 mmol/L (98-107); Estimated GFR-MDRD Greater than 90; Glucose 127 mg/dL (80-115); Potassium 4.4 mmol/L (3.5-5.1); Sodium 136 mmol/L (136-145)
[2018-06-20 06:50] LABS: Band 29 % (5-11); Lymphocytes 27 % (21-51); MDiff Complete? YES; Metamyelocyte 1 % (0-0); Monocytes 2 % (0-10); Myelocyte 3 % (0-0); Neutrophil 38 % (42-75); Nucleated RBC 3 % (0); PLT Morphology Comment Appears Decreased; Toxic Granulation SLIGHT
[2018-06-20] MEDS: predniSONE 20 MG TAB PO SCH (08:45)
[2018-06-20] MEDS: Amoxicillin/Potassium Clav 875 MG TAB PO SCH ×2 (08:45→20:21)
[2018-06-20] MEDS: guaiFENesin ER 600 MG TAB PO SCH ×2 (08:45→20:21)
[2018-06-20] MEDS: Pantoprazole 40 MG GRANULES PACKET PER TUBE SCH (08:45)
[2018-06-20] MEDS: Fluconazole 100 MG TAB PO SCH (08:45)
[2018-06-20] MEDS: Nicotine 7 MG PATCH TOP SCH (08:48)
--- NOTE | 2018-06-20 13:36 | PRG ---
DATE OF SERVICE: 06/20/2018 SUBJECTIVE: This morning, she is better. She is less short of breath. OBJECTIVE: VITAL SIGNS: Her sats are 98 % 24% , pulse 84, blood pressure 120\72. CHEST: Decreased breath sounds. No wheezing. CARDIAC: Normal S1, S2. No gallops. ABDOMEN: Soft. No masses. LABORATORY DATA: White count 14,000, H and H 8 and 23, platelet count is 67, 000. IMPRESSION: 1. Status post chemotherapy. 2. Metabolic encephalopathy. 3. End-stage chronic obstructive pulmonary disease, pneumonia. 4. Small cell cancer. We are not going to remove her trachea. We can probably downsize it. She needs placement. We discussed with the nurses. Long-term prognosis is poor. MTDD
--- NOTE | 2018-06-20 15:11 | PDOC.PN ---
- Subjective Encounter Start Date: 06/20/18 Encounter Start Time: 15:09 Subjective: feels upset about upcoming chemorx -: otherwise feels stronger and moving in bed at much as she can -: working w PT.some abd distension but better after laxative - Objective Resuscitation Status: Resuscitation Status DNR:Do Not Resuscitate MAR Reviewed: Yes Vital Signs & Weight: Vital Signs (12 hours) Temp Pulse Resp BP Pulse Ox 06/20/18 13:32 89 16 06/20/18 12:00 98.3 F 89 18 113/54 L 94 L 06/20/18 08:25 98 06/20/18 08:00 97.9 F 84 18 109/55 L 98 06/20/18 06:22 100 06/20/18 06:20 90 12 Weight Admit Weight 163 lb 2.273 oz Weight 168 lb 10.458 oz Most Recent Monitor Data Heart Rate from ECG 86 NIBP 108/44 NIBP BP-Mean 83 Respiration from ECG 15 SpO2 99 I&O: 06/19/18 06/20/18 06/21/18 06:59 06:59 06:59 Intake Total 1595 1250 300 Output Total 200 1195 Balance 1395 55 300 Result Diagrams: 06/20/18 06:05 06/20/18 06:05 Additional Labs: Microbiology 06/14/18 14:31 Stool Stool Occult Blood (CELE) - Final 06/11/18 21:35 Stool Stool Culture - Final Yeast species 06/11/18 21:35 Stool Escherichia coli 0157 Culture - Final 06/11/18 21:35 Stool Campylobacter Antigen Assay - Final 06/11/18 21:35 Stool Shiga Toxin Test - Final 06/03/18 10:33 Venous blood - Right Hand Blood Culture - Final NO GROWTH IN 5 DAYS 06/03/18 10:33 Venous blood - Left Hand Blood Culture - Final NO GROWTH IN 5 DAYS 06/02/18 18:15 Urine bolton catheter Urine Culture - Final Yeast species Phys Exam - Physical Examination Constitutional: NAD HEENT: PERRLA, moist MMs, sclera anicteric, oral pharynx no lesions Trach Collar Neck: no nodes, no JVD, supple, full ROM Respiratory: no wheezing, no rales, no rhonchi, clear to auscultation bilateral Cardiovascular: RRR, no significant murmur, no rub Gastrointestinal: soft, non-tender Musculoskeletal: no edema, pulses present Neurological: non-focal, normal sensation, moves all 4 limbs Psychiatric: normal affect, A&O x 3 Skin: no rash Dx/Plan (1) Acute respiratory failure with hypoxia Code(s): J96.01 - ACUTE RESPIRATORY FAILURE WITH HYPOXIA Status: Acute Comment: trach, peg 06/07/2018 (2) Pancytopenia Code(s): D61.818 - OTHER PANCYTOPENIA Status: Acute Comment: Due to chemoRx this admission.s/p transfusion 06/14.Monitor (3) Moderate protein malnutrition Code(s): E44.0 - MODERATE PROTEIN-CALORIE MALNUTRITION Status: Acute (4) Muscular deconditioning Code(s): R29.898 - OTH SYMPTOMS AND SIGNS INVOLVING THE MUSCULOSKELETAL SYSTEM Status: Chronic (5) Small cell lung cancer Code(s): C34.90 - MALIGNANT NEOPLASM OF UNSP PART OF UNSP BRONCHUS OR LUNG Status: Acute Comment: poorly diff per histopath.S/P Chemorx (6) H/O rheumatoid arthritis Code(s): Z87.39 - PERSONAL HISTORY OF DISEASES OF THE MS SYS AND CONN TISS Status: Chronic Comment: was on enbrel and methotrexate prior to hosp - Plan PT/OT, speech therapy, out of bed/ambulate, DVT proph w/SCDs MBS today.cont TF for now. -: Trach collar.o2 as needed. ? take down trach prior to DC -: Chemo on wednesday per Oncology. -: HD stable * . Review of Systems - Review of Systems Constitutional: weakness, malaise. negative: fever, chills, sweats, other ENT: negative: Ear Pain, Ear Discharge, Nose Pain, Nose Discharge, Nose Congestion, Mouth Pain, Mouth Swelling, Throat Pain, Throat Swelling, Other Respiratory: SOB with Excertion. negative: Cough, Dry, Shortness of Breath, Hemoptysis, Pleuritic Pain, Sputum, Wheezing Cardiovascular: negative: chest pain, palpitations, orthopnea, paroxysmal nocturnal dyspnea, edema, light headedness, other Gastrointestinal: negative: Nausea, Vomiting, Abdominal Pain, Diarrhea, Constipation, Melena, Hematochezia, Other Genitourinary: negative: Dysuria, Frequency, Incontinence, Hematuria, Retention , Other Musculoskeletal: negative: Neck Pain, Shoulder Pain, Arm Pain, Back Pain, Hand Pain, Leg Pain, Foot Pain, Other Neurological: negative: Weakness, Numbness, Incoordination, Change in Speech, Confusion, Seizures, Other - Medications/Allergies Allergies/Adverse Reactions: Allergies Allergy/AdvReac Type Severity Reaction Status Date / Time codeine Allergy Verified 06/02/18 18:50 Medications: Current Medications Acetaminophen (Tylenol) 650 mg PO Q4H PRN PRN Reason: Headache/Fever or Pain Last Admin: 06/16/18 15:29 Dose: 650 mg Acetaminophen (Tylenol) 650 mg [place] Q4H PRN PRN Reason: Headache/Fever or Pain Albuterol/Ipratropium (Duoneb) 3 ml NEB [id number] [facility] Last Admin: 06/20/18 13:32 Dose: 3 ml Amoxicillin/Clavulanate Potassium (Augmentin) 875 mg PO Q12HR [facility] Stop: 06/28/18 21:01 Last Admin: 06/20/18 08:45 Dose: 875 mg Bisacodyl (Dulcolax) 10 mg MO DAILYPRN PRN PRN Reason: Constipation Last Admin: 06/19/18 13:53 Dose: 10 mg Clonidine (Catapres) 0.1 mg PO Q4H PRN PRN Reason: Blood Pressure Fluconazole (Diflucan) 100 mg PO DAILY [facility] Stop: 06/29/18 09:01 Last Admin: 06/20/18 08:45 Dose: 100 mg Guaifenesin (Mucinex) 600 mg PO Q12HR [facility] Last Admin: 06/20/18 08:45 Dose: 600 mg Melatonin (Melatonin) 3 mg PO HS [facility] Last Admin: 06/19/18 20:17 Dose: 3 mg Nicotine (Nicoderm Patch) 7 mg TOP DAILY [facility] Last Admin: 06/20/18 08:48 Dose: 7 mg Discontinue Previous Narcotic Pain Medications And Benzodiazepines 1 each FS .ONE [facility] Stop: 07/02/18 18:52 Ondansetron HCl (Zofran) 4 mg IVP Q6H PRN PRN Reason: Nausea/Vomiting Last Admin: 06/19/18 19:19 Dose: 4 mg Pantoprazole Sodium (Protonix) 40 mg PER TUBE DAILY [facility] Last Admin: 06/20/18 08:45 Dose: 40 mg Prednisone (Prednisone) 10 mg PO QAM-WM [facility] Last Admin: 06/20/18 08:45 Dose: 10 mg Sodium Chloride (Flush - Normal Saline) 10 ml IVF PRN PRN PRN Reason: Saline Flush Sodium Chloride (Flush - Normal Saline) 10 ml IVF Q12HR [facility] Last Admin: 06/20/18 08:46 Dose: 10 ml Tramadol HCl (Ultram) 50 mg PO Q6H PRN PRN Reason: Pain Last Admin: 06/19/18 17:27 Dose: 50 mg
--- NOTE | 2018-06-20 15:16 | RAD ---
TWO VIEWS CHEST: 06/20/2018 COMPARISON: Not available. FINDINGS: PA and lateral views of the chest are obtained and demonstrate a tracheostomy tube in place. The pat ient has a right upper extremity PICC line. There is a left subclavian central line with the distal tip overlying the SVC. The lungs are well aerated. No evidence of active intrathoracic disease is seen. No evidence of eff usions, pneumonia, or pneumothorax is seen. IMPRESSION: 1. Unremarkable two view chest. 2. Lines and tubes in good position. POS: [facility]
--- NOTE | 2018-06-20 15:21 | RAD ---
BARIUM SWALLOW WITH SPEECH THERAPY: Date: 06/20/18 HISTORY: Dysphagia, oropharyngeal phase. R13.12. Feeding difficulties. R63.3. COMPARISON: None. TECHNIQUE/FINDINGS: Multiple consistencies of contrast given to the patient via the speech pathologist. No aspiration or penetration. Oropharyngeal phase is normal. Please see speech pathologist's report for further details. IMPRESSION: No aspiration or penetration. Fluoro Time: 1.3 minutes. Dose Area Product: 1.084 Gy*cm^2. POS: [facility]
[2018-06-20] MEDS: traMADol HCl 50 MG TAB PO PRN (16:36)
[2018-06-20] MEDS: Melatonin 3 MG TAB PO SCH (20:21)
[2018-06-21 05:43] LABS: Anion Gap 11 mmol/L (10-20); BUN (Urea Nitrogen) 16 mg/dL (9.8-20.1); Calc. Creatinine Clearance 120 mL/min (70-130); Calcium 8.8 mg/dL (7.8-10.44); Carbon Dioxide 27 mmol/L (23-31); Chloride 101 mmol/L (98-107); Estimated GFR-MDRD Greater than 90; Glucose 95 mg/dL (80-115); Potassium 3.7 mmol/L (3.5-5.1); Sodium 135 mmol/L (136-145)
[2018-06-21 06:19] LABS: Anisocytosis SLIGHT = 6-15 cells (100X) (0-5/hpf); Band 21 % (5-11); Hemoglobin 7.7 g/dL (12.0-16.0); Lymphocytes 26 % (21-51); MDiff Complete? YES; Mean Corpuscular HGB CONC 33.8 g/dL (32.0-36.0); Mean Corpuscular Hemoglobin 31.7 pg (27.0-31.0); Mean Corpuscular Volume 93.8 fL (78.0-98.0); Mean Platelet Volume 7.6 fL (7.4-10.4); Monocytes 7 % (0-10); Myelocyte 3 % (0-0); Neutrophil 43 % (42-75); Nucleated RBC 1 % (0); PLT Morphology Comment Appears Decreased; Platelet Count 82 thou/uL (130-400); RBC Distribution Width 15.5 % (11.5-14.5); Red Blood Cell (RBC) Count 2.44 mill/uL (4.20-5.40); White Blood Cell (WBC) Count 15.7 thou/uL (4.8-10.8)
[2018-06-21] MEDS: Amoxicillin/Potassium Clav 875 MG TAB PO SCH (08:19)
[2018-06-21] MEDS: guaiFENesin ER 600 MG TAB PO SCH ×2 (08:19→20:51)
[2018-06-21] MEDS: predniSONE 20 MG TAB PO SCH (08:19)
[2018-06-21] MEDS: Fluconazole 100 MG TAB PO SCH (08:20)
[2018-06-21] MEDS: Pantoprazole 40 MG GRANULES PACKET PER TUBE SCH (08:20)
--- NOTE | 2018-06-21 10:57 | PRG ---
DATE OF SERVICE: 06/21/2018 She was changed yesterday to a #6 cuffless fenestrated trach. She is doing well. PHYSICAL EXAMINATION: VITAL SIGNS: Sats are 94% on room air, respiration rate 18, temperature 98, blood pressure 120/58. CHEST: Chest reveals no wheezing. CARDIAC: Normal S1, S2. No gallops. ABDOMEN: Soft, no masses. Chest x-ray yesterday shows to my surprise, no infiltrates. No masses were seen. White count 15,000, H&H 7 and 22, platelet count is low 82. Electrolytes are normal. IMPRESSION: 1. Status post chemotherapy for small cell carcinoma. 2. Severe chronic obstructive pulmonary disease. 3. Severe deconditioning. 4. Depression, anxiety. PLAN: Will probably discontinue the trach post-chemotherapy on Wednesday. Otherwise, continue PT and s upportive care. No need for antibiotics at this stage.
[2018-06-21] MEDS: ALPRAZolam 0.25 MG TAB PO PRN (10:58)
[2018-06-21] MEDS: traMADol HCl 50 MG TAB PO PRN (10:58)
[2018-06-21] MEDS: Nicotine 7 MG PATCH TOP SCH (11:02)
--- NOTE | 2018-06-21 13:45 | PDOC.PN ---
- Subjective Encounter Start Date: 06/21/18 Encounter Start Time: 13:44 Subjective: feels very depressed.did not get much sleep last night -: eating small bites but sacred to eat - Objective Resuscitation Status: Resuscitation Status DNR:Do Not Resuscitate MAR Reviewed: Yes Vital Signs & Weight: Vital Signs (12 hours) Temp Pulse Resp BP Pulse Ox 06/21/18 13:24 86 16 06/21/18 08:00 98.2 F 92 18 120/58 L 94 L 06/21/18 06:12 94 L 06/21/18 06:10 87 16 Weight Admit Weight 163 lb 2.273 oz Weight 158 lb Most Recent Monitor Data Heart Rate from ECG 86 NIBP 108/44 NIBP BP-Mean 83 Respiration from ECG 15 SpO2 99 I&O: 06/20/18 06/21/18 06/22/18 06:59 06:59 06:59 Intake Total 1250 905 Output Total 1195 700 Balance 55 205 Result Diagrams: 06/21/18 04:40 06/21/18 04:40 Phys Exam - Physical Examination Constitutional: NAD HEENT: PERRLA, moist MMs, sclera anicteric, oral pharynx no lesions, 2+ tonsils Neck: no nodes, no JVD, supple, full ROM Respiratory: no wheezing, no rales, no rhonchi, clear to auscultation bilateral Cardiovascular: RRR, no significant murmur, no rub Gastrointestinal: soft, non-tender, no distention, positive bowel sounds Musculoskeletal: no edema, pulses present Neurological: non-focal, normal sensation, moves all 4 limbs Psychiatric: A&O x 3 Deviation from normal: depressed Skin: no rash Dx/Plan (1) Acute respiratory failure with hypoxia Code(s): J96.01 - ACUTE RESPIRATORY FAILURE WITH HYPOXIA Status: Acute Comment: trach, peg 06/07/2018 (2) Pancytopenia Code(s): D61.818 - OTHER PANCYTOPENIA Status: Acute Comment: Due to chemoRx this admission.s/p transfusion 06/14.Monitor (3) Moderate protein malnutrition Code(s): E44.0 - MODERATE PROTEIN-CALORIE MALNUTRITION Status: Acute (4) Muscular deconditioning Code(s): R29.898 - OTH SYMPTOMS AND SIGNS INVOLVING THE MUSCULOSKELETAL SYSTEM Status: Chronic (5) Small cell lung cancer Code(s): C34.90 - MALIGNANT NEOPLASM OF UNSP PART OF UNSP BRONCHUS OR LUNG Status: Acute Comment: poorly diff per histopath.S/P Chemorx (6) H/O rheumatoid arthritis Code(s): Z87.39 - PERSONAL HISTORY OF DISEASES OF THE MS SYS AND CONN TISS Status: Chronic Comment: was on enbrel and methotrexate prior to hosp - Plan PT/OT, out of bed/ambulate, DVT proph w/SCDs awaiting Chemo on wednesday.cont to encourage Po intake/ambulation -: trach care per Pulmonary. -: cleared for diet but poor intake so cont TF as well -: Add prn trazodone hs for insomnia. -: am labs. CBC stable * . Review of Systems - Review of Systems Constitutional: weakness, malaise. negative: fever, chills, sweats, other ENT: negative: Ear Pain, Ear Discharge, Nose Pain, Nose Discharge, Nose Congestion, Mouth Pain, Mouth Swelling, Throat Pain, Throat Swelling, Other Respiratory: negative: Cough, Dry, Shortness of Breath, Hemoptysis, SOB with Excertion, Pleuritic Pain, Sputum, Wheezing Cardiovascular: negative: chest pain, palpitations, orthopnea, paroxysmal nocturnal dyspnea, edema, light headedness, other Gastrointestinal: negative: Nausea, Vomiting, Abdominal Pain, Diarrhea, Constipation, Melena, Hematochezia, Other Genitourinary: negative: Dysuria, Frequency, Incontinence, Hematuria, Retention , Other Musculoskeletal: negative: Neck Pain, Shoulder Pain, Arm Pain, Back Pain, Hand Pain, Leg Pain, Foot Pain, Other Skin: negative: Rash, Lesions, Andres, Bruising, Other Neurological: negative: Weakness, Numbness, Incoordination, Change in Speech, Confusion, Seizures, Other - Medications/Allergies Allergies/Adverse Reactions: Allergies Allergy/AdvReac Type Severity Reaction Status Date / Time codeine Allergy Verified 06/02/18 18:50 Medications: Current Medications Acetaminophen (Tylenol) 650 mg PO Q4H PRN PRN Reason: Headache/Fever or Pain Last Admin: 06/16/18 15:29 Dose: 650 mg Acetaminophen (Tylenol) 650 mg [place] Q4H PRN PRN Reason: Headache/Fever or Pain Albuterol/Ipratropium (Duoneb) 3 ml NEB [id number] [facility] Last Admin: 06/21/18 13:24 Dose: 3 ml Alprazolam (Xanax) 0.25 mg PO TIDPRN PRN PRN Reason: Anxiety Last Admin: 06/21/18 10:58 Dose: 0.25 mg Bisacodyl (Dulcolax) 10 mg [place] DAILYPRN PRN PRN Reason: Constipation Last Admin: 06/19/18 13:53 Dose: 10 mg Clonidine (Catapres) 0.1 mg PO Q4H PRN PRN Reason: Blood Pressure Fluconazole (Diflucan) 100 mg PO DAILY [facility] Stop: 06/29/18 09:01 Last Admin: 06/21/18 08:20 Dose: 100 mg Guaifenesin (Mucinex) 600 mg PO Q12HR [facility] Last Admin: 06/21/18 08:19 Dose: 600 mg Melatonin (Melatonin) 3 mg PO HS [facility] Last Admin: 06/20/18 20:21 Dose: 3 mg Discontinue Previous Narcotic Pain Medications And Benzodiazepines 1 each FS .ONE [facility] Stop: 07/02/18 18:52 Ondansetron HCl (Zofran) 4 mg IVP Q6H PRN PRN Reason: Nausea/Vomiting Last Admin: 06/19/18 19:19 Dose: 4 mg Pantoprazole Sodium (Protonix) 40 mg PER TUBE DAILY [facility] Last Admin: 06/21/18 08:20 Dose: 40 mg Prednisone (Prednisone) 5 mg PO QAM-WM [facility] Sodium Chloride (Flush - Normal Saline) 10 ml IVF PRN PRN PRN Reason: Saline Flush Sodium Chloride (Flush - Normal Saline) 10 ml IVF Q12HR [facility] Last Admin: 06/21/18 08:20 Dose: 10 ml Tramadol HCl (Ultram) 50 mg PO Q6H PRN PRN Reason: Pain Last Admin: 06/21/18 10:58 Dose: 50 mg Trazodone HCl (Desyrel) 50 mg PO HS PRN PRN Reason: Insomnia
[2018-06-21] MEDS: Melatonin 3 MG TAB PO SCH (20:51)
[2018-06-21] MEDS: traZODone HCl 50 MG TAB PO PRN (20:51)
[2018-06-22 05:46] LABS: Hemoglobin 7.7 g/dL (12.0-16.0); Mean Corpuscular HGB CONC 33.2 g/dL (32.0-36.0); Mean Corpuscular Hemoglobin 31.3 pg (27.0-31.0); Mean Corpuscular Volume 94.2 fL (78.0-98.0); Mean Platelet Volume 7.3 fL (7.4-10.4); Platelet Count 99 thou/uL (130-400); RBC Distribution Width 15.7 % (11.5-14.5); Red Blood Cell (RBC) Count 2.47 mill/uL (4.20-5.40); White Blood Cell (WBC) Count 14.5 thou/uL (4.8-10.8)
[2018-06-22 05:47] LABS: Band 29 % (5-11); Lymphocytes 19 % (21-51); MDiff Complete? YES; Metamyelocyte 4 % (0-0); Monocytes 4 % (0-10); Myelocyte 3 % (0-0); Neutrophil 39 % (42-75); Nucleated RBC 4 % (0); PLT Morphology Comment Appears Decreased; Reactive Lymphocytes 2 % (0-10)
[2018-06-22] MEDS: guaiFENesin ER 600 MG TAB PO SCH ×2 (11:15→21:59)
[2018-06-22] MEDS: Fluconazole 100 MG TAB PO SCH (11:15)
[2018-06-22] MEDS: Pantoprazole 40 MG GRANULES PACKET PER TUBE SCH (11:15)
[2018-06-22] MEDS: predniSONE 5 MG TAB PO SCH (11:15)
--- NOTE | 2018-06-22 13:05 | PRG ---
DATE OF SERVICE: 06/22/2018 SUBJECTIVE: This morning, she is better. She is still very weak. OBJECTIVE: VITAL SIGNS: Sats are 99% room air, pulse 84, respirations 15, blood pressure is 130/63. CHEST: No wheezing or crackles. CARDIAC: Normal S1 and S2, no gallops. ABDOMEN: Soft, no masses. LABORATORY DATA: White count 14,000, H and H 7 and 23, platelet count is 99. With a big left shift, bands. IMPRESSION: Status post respiratory failure, chronic obstructive pulmonary disease, pneumonia, trach eobronchitis, small cell cancer. She is due for chemotherapy on Wednesday with prior decannulation stable . We will follow.
[2018-06-22] MEDS: traMADol HCl 50 MG TAB PO PRN ×2 (13:44→22:01)
--- NOTE | 2018-06-22 18:32 | PDOC.PN ---
- Subjective Encounter Start Date: 06/22/18 Encounter Start Time: 09:30 Patient seen and examined for resp failure. No new complaints. No overnight events - Objective Resuscitation Status: Resuscitation Status DNR:Do Not Resuscitate MAR Reviewed: Yes Vital Signs & Weight: Vital Signs (12 hours) Temp Pulse Pulse Pulse Resp BP BP 06/22/18 12:23 89 16 06/22/18 09:20 116 H 94 129/72 127/60 06/22/18 08:00 98.2 F 89 14 06/22/18 07:28 06/22/18 07:26 84 15 BP Pulse Ox Pulse Ox Pulse Ox 06/22/18 12:23 98 06/22/18 09:20 95 95 06/22/18 08:00 113/53 L 95 06/22/18 07:28 99 06/22/18 07:26 99 Weight Admit Weight 163 lb 2.273 oz Weight 158 lb Most Recent Monitor Data Heart Rate from ECG 86 NIBP 108/44 NIBP BP-Mean 83 Respiration from ECG 15 SpO2 99 I&O: 06/21/18 06/22/18 06/23/18 06:59 06:59 06:59 Intake Total 905 1195 50 Output Total 700 750 Balance 205 445 50 Result Diagrams: 06/22/18 03:58 06/21/18 04:40 Phys Exam - Physical Examination Constitutional: NAD Respiratory: no wheezing Scat rales at bases Cardiovascular: RRR, no rub Gastrointestinal: soft, positive bowel sounds Musculoskeletal: no edema Dx/Plan - Plan DVT proph w/SCDs IMPRESSION: 1. New small cell Lung Ca - started on Chemo 2. Acute respiratory failure/ COPD Exacerbation s/p trach/PEG 3. Thrombocytopenia/Anemia - prob due to Chemo 4. 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 Cont Nebs Review of Systems - Review of Systems Cardiovascular: negative: chest pain, palpitations, orthopnea, paroxysmal nocturnal dyspnea, edema, light headedness, other Gastrointestinal: negative: Nausea, Vomiting, Abdominal Pain, Diarrhea, Constipation, Melena, Hematochezia, Other - Medications/Allergies Allergies/Adverse Reactions: Allergies Allergy/AdvReac Type Severity Reaction Status Date / Time codeine Allergy Verified 06/02/18 18:50 Medications: Current Medications Acetaminophen (Tylenol) 650 mg PO Q4H PRN PRN Reason: Headache/Fever or Pain Last Admin: 06/16/18 15:29 Dose: 650 mg Acetaminophen (Tylenol) 650 mg [place] Q4H PRN PRN Reason: Headache/Fever or Pain Albuterol/Ipratropium (Duoneb) 3 ml NEB [id number] [facility] Last Admin: 06/22/18 12:23 Dose: 3 ml Alprazolam (Xanax) 0.25 mg PO TIDPRN PRN PRN Reason: Anxiety Last Admin: 06/21/18 10:58 Dose: 0.25 mg Bisacodyl (Dulcolax) 10 mg MO DAILYPRN PRN PRN Reason: Constipation Last Admin: 06/19/18 13:53 Dose: 10 mg Clonidine (Catapres) 0.1 mg PO Q4H PRN PRN Reason: Blood Pressure Fluconazole (Diflucan) 100 mg PO DAILY [facility] Stop: 06/29/18 09:01 Last Admin: 06/22/18 11:15 Dose: 100 mg Guaifenesin (Mucinex) 600 mg PO Q12HR [facility] Last Admin: 06/22/18 11:15 Dose: 600 mg Melatonin (Melatonin) 3 mg PO HS [facility] Last Admin: 06/21/18 20:51 Dose: 3 mg Discontinue Previous Narcotic Pain Medications And Benzodiazepines 1 each FS .ONE [facility] Stop: 07/02/18 18:52 Ondansetron HCl (Zofran) 4 mg IVP Q6H PRN PRN Reason: Nausea/Vomiting Last Admin: 06/19/18 19:19 Dose: 4 mg Pantoprazole Sodium (Protonix) 40 mg PER TUBE DAILY [facility] Last Admin: 06/22/18 11:15 Dose: 40 mg Prednisone (Prednisone) 5 mg PO QAM-WM [facility] Last Admin: 06/22/18 11:15 Dose: 5 mg Sodium Chloride (Flush - Normal Saline) 10 ml IVF PRN PRN PRN Reason: Saline Flush Sodium Chloride (Flush - Normal Saline) 10 ml IVF Q12HR [facility] Last Admin: 06/22/18 11:15 Dose: 10 ml Tramadol HCl (Ultram) 50 mg PO Q6H PRN PRN Reason: Pain Last Admin: 06/22/18 13:44 Dose: 50 mg Trazodone HCl (Desyrel) 50 mg PO HS PRN PRN Reason: Insomnia Last Admin: 06/21/18 20:51 Dose: 50 mg
[2018-06-22] MEDS ORDERED: Senokot S 8.6-50 MG TAB PO SCH (21:00)
[2018-06-22] MEDS: Senokot S 8.6-50 MG TAB PO SCH (21:59)
[2018-06-22] MEDS: Melatonin 3 MG TAB PO SCH (21:59)
[2018-06-22] MEDS: ALPRAZolam 0.25 MG TAB PO PRN (23:04)
[2018-06-23 08:19] LABS: Hemoglobin 7.8 g/dL (12.0-16.0); Mean Corpuscular HGB CONC 33.7 g/dL (32.0-36.0); Mean Corpuscular Hemoglobin 31.8 pg (27.0-31.0); Mean Corpuscular Volume 94.5 fL (78.0-98.0); Mean Platelet Volume 6.9 fL (7.4-10.4); Platelet Count 113 thou/uL (130-400); RBC Distribution Width 16.4 % (11.5-14.5); Red Blood Cell (RBC) Count 2.46 mill/uL (4.20-5.40); White Blood Cell (WBC) Count 13.1 thou/uL (4.8-10.8)
[2018-06-23] MEDS: Fluconazole 100 MG TAB PO SCH (08:19)
[2018-06-23] MEDS: guaiFENesin ER 600 MG TAB PO SCH ×2 (08:19→22:19)
[2018-06-23] MEDS: Polyethylene Glycol 3350 17 GM Packet PO SCH (08:19)
[2018-06-23] MEDS: predniSONE 5 MG TAB PO SCH (08:21)
[2018-06-23] MEDS: Pantoprazole 40 MG GRANULES PACKET PER TUBE SCH (08:21)
[2018-06-23] MEDS: Senokot S 8.6-50 MG TAB PO SCH ×2 (08:21→22:19)
[2018-06-23 08:35] LABS: Band 19 % (5-11); Eosinophils 1 % (0-10); Lymphocytes 25 % (21-51); MDiff Complete? YES; Metamyelocyte 11 % (0-0); Monocytes 5 % (0-10); Myelocyte 3 % (0-0); Neutrophil 36 % (42-75); Nucleated RBC 8 % (0); PLT Morphology Comment Appears Decreased; Polychromasia MODERATE = 3-4 cells (100X) (0-2/hpf); Toxic Granulation SLIGHT
[2018-06-23] MEDS ORDERED: Polyethylene Glycol 3350 17 GM Packet PO SCH (09:00)
--- NOTE | 2018-06-23 09:27 | PRG ---
DATE OF SERVICE: 06/23/2018 This morning she is awake, alert, responsive. PHYSICAL EXAMINATION: VITAL SIGNS: Sats are 91 on room air, respiration rate 18, temperature 98, blood pressure 123/58. S he says she is swallowing some apple juice. CHEST: Decreased breath sounds, no wheezing. CARDIAC: Normal S1-S2. No gallops. ABDOMEN: Soft. No masses. LABORATORY: White count 13,000, H&H 7 and 28, platelet count is 113, 36 segs, 19 bands. IMPRESSION: 1. Status post chemotherapy for small cell cancer. 2. Chronic obstructive pulmonary disease. 3. Pneumonia. 4. Severe deconditioning. PLAN: Gao and PICC line were removed. Additionally, we discontinued the trach. Gauze was placed. She is doing quite well. She is here for chemotherapy. In the next 24-48 hours she can be discharged home following chemo by Oncology. Pulmonary-coronel, otherwise continue neb treatments and supportive care. I will follow.
[2018-06-23] MEDS: Ondansetron HCl/PF 4 MG/2 ML Vial IVP PRN (12:10)
--- NOTE | 2018-06-23 14:35 | PDOC.PN ---
- Subjective Encounter Start Date: 06/23/18 Encounter Start Time: 09:00 Patient seen and examined for Resp failure/Lung Ca. No new complaints. No overnight events. Trach dced. Cloudy urine per RN - Objective Resuscitation Status: Resuscitation Status DNR:Do Not Resuscitate MAR Reviewed: Yes Vital Signs & Weight: Vital Signs (12 hours) Temp Pulse Resp BP Pulse Ox 06/23/18 13:29 82 16 98 06/23/18 08:00 98.0 F 87 18 123/58 L 91 L Weight Admit Weight 163 lb 2.273 oz Weight 158 lb Most Recent Monitor Data Heart Rate from ECG 86 NIBP 108/44 NIBP BP-Mean 83 Respiration from ECG 15 SpO2 99 I&O: 06/22/18 06/23/18 06/24/18 06:59 06:59 06:59 Intake Total 1195 290 Output Total 750 1025 Balance 445 -735 Result Diagrams: 06/23/18 08:08 06/21/18 04:40 Phys Exam - Physical Examination Constitutional: NAD Respiratory: no wheezing, no rhonchi Cardiovascular: RRR, no rub Gastrointestinal: soft, no distention Musculoskeletal: no edema Neurological: moves all 4 limbs Dx/Plan - Plan DVT proph w/SCDs IMPRESSION: 1. New small cell Lung Ca - on Chemo 2. Acute respiratory failure/ COPD Exacerbation 3. Thrombocytopenia/Anemia - prob due to Chemo - improving 4. RA/Tob dep/HTN / Anxiety-Depression / Physical deconditioning /Othe issues per previous notes PLAN: Check UA DC Gao/Central line Trach dced Chemo per Oncology Cont current meds as below Review of Systems - Review of Systems Respiratory: negative: Cough, Dry, Shortness of Breath, Hemoptysis, SOB with Excertion, Pleuritic Pain, Sputum, Wheezing Cardiovascular: negative: chest pain, palpitations, orthopnea, paroxysmal nocturnal dyspnea, edema, light headedness, other - Medications/Allergies Allergies/Adverse Reactions: Allergies Allergy/AdvReac Type Severity Reaction Status Date / Time codeine Allergy Verified 06/02/18 18:50 Medications: Current Medications Acetaminophen (Tylenol) 650 mg PO Q4H PRN PRN Reason: Headache/Fever or Pain Last Admin: 06/16/18 15:29 Dose: 650 mg Acetaminophen (Tylenol) 650 mg [place] Q4H PRN PRN Reason: Headache/Fever or Pain Albuterol/Ipratropium (Duoneb) 3 ml NEB [id number] [facility] Last Admin: 06/23/18 13:29 Dose: 3 ml Alprazolam (Xanax) 0.25 mg PO TIDPRN PRN PRN Reason: Anxiety Last Admin: 06/22/18 23:04 Dose: 0.25 mg Bisacodyl (Dulcolax) 10 mg [place] DAILYPRN PRN PRN Reason: Constipation Last Admin: 06/19/18 13:53 Dose: 10 mg Clonidine (Catapres) 0.1 mg PO Q4H PRN PRN Reason: Blood Pressure Fluconazole (Diflucan) 100 mg PO DAILY [facility] Stop: 06/29/18 09:01 Last Admin: 06/23/18 08:19 Dose: 100 mg Guaifenesin (Mucinex) 600 mg PO Q12HR [facility] Last Admin: 06/23/18 08:19 Dose: 600 mg Melatonin (Melatonin) 3 mg PO HS [facility] Last Admin: 06/22/18 21:59 Dose: 3 mg Discontinue Previous Narcotic Pain Medications And Benzodiazepines 1 each FS .ONE [facility] Stop: 07/02/18 18:52 Ondansetron HCl (Zofran) 4 mg IVP Q6H PRN PRN Reason: Nausea/Vomiting Last Admin: 06/23/18 12:10 Dose: 4 mg Pantoprazole Sodium (Protonix) 40 mg PER TUBE DAILY [facility] Last Admin: 06/23/18 08:21 Dose: 40 mg Polyethylene Glycol (Miralax) 17 gm PO DAILY [facility] Last Admin: 06/23/18 08:19 Dose: 17 gm Prednisone (Prednisone) 5 mg PO QAM-WM [facility] Last Admin: 06/23/18 08:21 Dose: 5 mg Senna/Docusate Sodium (Senokot S) 2 tab PO BID [facility] Last Admin: 06/23/18 08:21 Dose: 2 tab Sodium Chloride (Flush - Normal Saline) 10 ml IVF PRN PRN PRN Reason: Saline Flush Last Admin: 06/23/18 08:22 Dose: 10 ml Sodium Chloride (Flush - Normal Saline) 10 ml IVF Q12HR [facility] Last Admin: 06/23/18 08:21 Dose: 10 ml Tramadol HCl (Ultram) 50 mg PO Q6H PRN PRN Reason: Pain Last Admin: 06/22/18 22:01 Dose: 50 mg Trazodone HCl (Desyrel) 50 mg PO HS PRN PRN Reason: Insomnia Last Admin: 06/21/18 20:51 Dose: 50 mg
[2018-06-23 14:56] LABS: Bilirubin Negative (Negative); Blood, Urine Negative (Negative); Clarity CLOUDY (Clear); Glucose, Urine (Dipstick) Negative (Negative); Leukocyte Small (Negative); Nitrite Negative (Negative); Protein, Urine (Dipstick) Negative (Neg-Trace); Specific Gravity, Urine 1.017 (1.002-1.036); Urobilinogen 0.2 mg/dL (0.2-1.0); pH, Urine 5.5 (5.0-9.0)
[2018-06-23 14:58] LABS: Bacteria/HPF None Seen HPF (None Seen); Hyaline Casts/LPF 4-6 HYALINE CAST LPF (0-3 Hyaline); Pathc Cast-AUWi Flag 1.01 (0-2.49); Squamous Epithelial 0-3 HPF (0-3)
[2018-06-23] MEDS: traMADol HCl 50 MG TAB PO PRN (18:19)
[2018-06-23] MEDS: ALPRAZolam 0.25 MG TAB PO PRN (22:18)
[2018-06-23] MEDS: Melatonin 3 MG TAB PO SCH (22:18)
[2018-06-24] MEDS: traMADol HCl 50 MG TAB PO PRN ×2 (05:08→11:04)
[2018-06-24] MEDS ORDERED: Ibuprofen 200 MG TAB PO PRN (07:58)
[2018-06-24] MEDS: Ondansetron HCl/PF 4 MG/2 ML Vial IVP PRN ×2 (08:03→18:56)
--- NOTE | 2018-06-24 10:21 | PRG ---
DATE OF SERVICE: 06/24/2018 SUBJECTIVE: She is doing quite well. OBJECTIVE: VITAL SIGNS: Respirations 14, pulse 80_, temperature 98, sats are _94% room air , blood pressure 111/56. CHEST: Reveals decreased breath sounds, no wheezing. CARDIAC: Normal S1, S2. No gallops. ABDOMEN: Soft, no masses. IMPRESSION: 1. Status post chemotherapy, small cell. 2. Chronic obstructive pulmonary disease. 3. Respiratory failure, status post decannulation. 4. Severe deconditioning. PLAN: Continue supportive care, PT, post-chemotherapy, disposition as per Oncology. I have added Dulera. Probably, we are going to discontinue prednisone in the next 24-48 hours. MTDD
[2018-06-24] MEDS: Fluconazole 100 MG TAB PO SCH (11:03)
[2018-06-24] MEDS: predniSONE 5 MG TAB PO SCH (11:03)
--- NOTE | 2018-06-24 11:38 | PRG ---
DATE OF SERVICE: 06/24/2018. SUBJECTIVE: Ms. 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 When I initially saw her, she had been intuba honey and on the ventilator for pneumonia and her lung cancer. She had no overt evidence of distant me tastatic disease and was started on chemotherapy. Since that time, she has been able to be extubated and even 1-2 days ago, had her tracheostomy removed. Clinically, she has improved. Her breathing i s much better. She is still quite weak and debilitated. She has been able to get out of bed and use the bedside commode. She has taken some steps with physical therapy, but overall remains quite weak . She is mostly getting her nutrition through her PEG tube. She has started to eat some by mouth. She did have a swallowing study, which was negative. She does report some pain around the PEG tube s ite and Dr. Zelaya is apparently going to come and evaluate her for this. She has no headaches. She did have an MRI of the brain, which was negative. She is scheduled to get cycle #2 of chemotherapy this weekend. I was asked to see her again to discuss the timing of radiation therapy. She voices n o other complaints at the present time. OBJECTIVE: VITAL SIGNS: Height is 5 feet 8 inches, weight 158 pounds. Blood pressure is 111/56, pulse 89, resp irations are 18, temperature is 98.0, O2 saturation is 93% on room air. GENERAL: She is alert and oriented, but still remains quite frail in appearance. Karnofsky performa nce status is 50%. This is expected to improve. EYES: Pupils equal, round, and reactive to light. Extraocular movements are intact. ENT: Oral cavity and oropharynx normal without lesion or erythema. Palate elevates symmetrically. Gingiva is intact. NECK: Supple, without cervical or supraclavicular adenopathy. There is no thyromegaly. Larynx midl ine. She does have a bandage over her tracheostomy site. LUNGS: Breathing nonlabored. Clear to auscultation and percussion. CARDIOVASCULAR: Heart is regular rate and rhythm without murmur. Lower extremity edema. BACK: No tenderness on fist percussion of her spine. LYMPHATIC: No axillary or inguinal adenopathy. ABDOMEN: Soft, nondistended, with mild tenderness around her PEG site. The PEG tube is in good plac e and there is no erythema or purulent drainage noted. There is no mass or hepatosplenomegaly. Live r percusses to normal size. NEUROLOGIC: Cranial nerves II through XII grossly intact. Motor strength is 5/5 in both upper and l ower extremities and all muscle groups tested. Reflexes are brisk, but symmetrical. Gait was not te sted. RADIOLOGIC DATA: MRI of the brain was personally reviewed and showed no evidence of brain metastasis . Recent CT scan of the chest showed her tracheostomy to be in place. There is no evidence of infil trate or effusion. Her mass is much less conspicuous. ASSESSMENT: Ms. Mendiola is a 63-year-old female with a diagnosis of a limited stage, clinical stag e IIIB, T3 N2 M0 small cell carcinoma of the lung. She has improved since initiating her treatment, but still remains quite frail and debilitated. PLAN: I did have a long discussion today with Ms. Mendiola. I still think she is too weak and frai l to do concurrent therapy with cycle #3. She is going to do cycle #2 of chemotherapy [facility] this [facility]. I will discuss the case with Dr. Zuñiga. It does depend on how many cycles of chemotherapy he is planning. If she continues to improve and get stronger and become more mobile and active, then we may be able to plan radiation beginning with cycle 4 of chemotherapy. However, I th ink the most likely clinical situation is that she is going to get sequential therapy with chemothera py followed by radiation. The logistics of radiation as well as the benefits and risks of treatment were discussed with her. Side effects would include but not be limited to skin reaction, fatigue, lo wer blood counts, difficulty or pain with swallowing, weight loss, small risk of radiation pneumoniti s, small risk of esophageal stricture, and rarely other unforeseen side effects from radiation therap y. Time was taken to answer all of her questions regarding radiation therapy. She is familiar with radiation therapy, because her was treated with radiation in [place]. Part of the difficu lty with her getting radiation therapy here in [place] is the fact that she lives 45 minutes on the [facility] side of [place]. This would make her have a 2-[address] way drive to get her radiation therapy here in [facility]. She is going to talk to her family about this. She may still decide to get her treatm ent here or ultimately may decide to get her radiation therapy in [place], which is where her husb and was treated. Again, time was taken to answer all of her questions regarding her treatment option s. We did have a good discussion regarding prognosis. She understands the aggressiveness of a small cell carcinoma of the lung and the fact that there is a significant chance that her disease will rec ur despite our therapy. We also briefly discussed the issue of prophylactic cranial radiation and th at I mention that small cell carcinoma has a high chance of spreading to the brain and that sometimes we do radiation therapy to reduce this risk. I did explain that we would discuss this later more in appropriate day.
[2018-06-24] MEDS: Acetaminophen 325 MG TAB PO SCH ×3 (14:42→22:12)
[2018-06-24] MEDS: guaiFENesin ER 600 MG TAB PO SCH ×2 (14:43→22:13)
[2018-06-24] MEDS: Senokot S 8.6-50 MG TAB PO SCH ×2 (14:43→22:09)
[2018-06-24] MEDS: Polyethylene Glycol 3350 17 GM Packet PO SCH (14:43)
[2018-06-24] MEDS: Pantoprazole 40 MG GRANULES PACKET PER TUBE SCH (14:44)
--- NOTE | 2018-06-24 16:02 | PRG ---
DATE OF SERVICE: 06/24/2018 SUBJECTIVE: Abril Mendiola is doing well. Her tracheostomy has been removed. She has a PEG tube. She complains of pain around it. I have been asked by my [facility] to see her. Inspection of t he PEG site reveals that there are no skin abnormalities. There is some mild exudate or drainage, bu t no evidence of infection. The patient is having quite a bit of pain at times in the area, but this is probably from the PEG tube and will improve with time. It flushes and aspirates well. At this p oint, I do not think further investigation is necessary. She can resume feedings and use her PEG tub e.
[2018-06-24] MEDS: Mometasone/Formoterol 120 PUFF INHALER INH SCH (18:50)
[2018-06-24] MEDS: Melatonin 3 MG TAB PO SCH (22:08)
[2018-06-24] MEDS: ALPRAZolam 0.25 MG TAB PO PRN (22:09)
--- NOTE | 2018-06-24 22:27 | PDOC.PN ---
- Subjective Encounter Start Date: 06/24/18 Encounter Start Time: 09:00 Patient seen and examined for Resp failure/Lung Ca. Some discomfort over the . No overnight events - Objective Resuscitation Status: Resuscitation Status DNR:Do Not Resuscitate MAR Reviewed: Yes Vital Signs & Weight: Vital Signs (12 hours) Temp Pulse Resp BP Pulse Ox 06/24/18 19:10 98.7 F 103 H 16 123/59 L 93 L 06/24/18 18:50 103 H 20 97 06/24/18 18:48 103 H 20 97 06/24/18 13:58 95 20 91 L Weight Admit Weight 163 lb 2.273 oz Weight 151 lb 14.4 oz Most Recent Monitor Data Heart Rate from ECG 86 NIBP 108/44 NIBP BP-Mean 83 Respiration from ECG 15 SpO2 99 I&O: 06/23/18 06/24/18 06/25/18 06:59 06:59 06:59 Intake Total 290 2984 1517 Output Total 1025 845 350 Balance -735 9837 1167 Result Diagrams: 06/23/18 08:08 06/21/18 04:40 Phys Exam - Physical Examination Constitutional: NAD Respiratory: no wheezing, no rhonchi Cardiovascular: RRR, no rub Gastrointestinal: soft, positive bowel sounds mild tend around PEG site Musculoskeletal: no edema Neurological: moves all 4 limbs Dx/Plan - Plan DVT proph w/SCDs IMPRESSION: 1. New small cell Lung Ca - on Chemo 2. Acute respiratory failure/ COPD Exacerbation 3. Thrombocytopenia/Anemia - prob due to Chemo - improving 4. RA/Tob dep/HTN / Anxiety-Depression / Physical deconditioning /Othe issues per previous notes PLAN: Dr Zelaya to evaluate PEG site Chemo per Oncology Cont current meds as below Review of Systems - Review of Systems Respiratory: negative: Cough, Dry, Shortness of Breath, Hemoptysis, SOB with Excertion, Pleuritic Pain, Sputum, Wheezing Cardiovascular: negative: chest pain, palpitations, orthopnea, paroxysmal nocturnal dyspnea, edema, light headedness, other - Medications/Allergies Allergies/Adverse Reactions: Allergies Allergy/AdvReac Type Severity Reaction Status Date / Time codeine Allergy Verified 06/02/18 18:50 Medications: Current Medications Acetaminophen (Tylenol) 650 mg MT Q4H PRN PRN Reason: Headache/Fever or Pain Acetaminophen (Tylenol) 650 mg PO TID [facility] Last Admin: 06/24/18 22:12 Dose: 325 mg Albuterol/Ipratropium (Duoneb) 3 ml NEB [id number] [facility] Last Admin: 06/24/18 18:48 Dose: 3 ml Alprazolam (Xanax) 0.25 mg PO TIDPRN PRN PRN Reason: Anxiety Last Admin: 06/24/18 22:09 Dose: 0.25 mg Bisacodyl (Dulcolax) 10 mg MT DAILYPRN PRN PRN Reason: Constipation Last Admin: 06/19/18 13:53 Dose: 10 mg Clonidine (Catapres) 0.1 mg PO Q4H PRN PRN Reason: Blood Pressure Fentanyl (Sublimaze) 25 mcg SLOW IVP Q3H PRN PRN Reason: Severe Pain (7-10) Fluconazole (Diflucan) 100 mg PO DAILY [facility] Stop: 06/29/18 09:01 Last Admin: 06/24/18 11:03 Dose: 100 mg Guaifenesin (Mucinex) 600 mg PO Q12HR [facility] Last Admin: 06/24/18 22:13 Dose: Not Given Dexamethasone 20 mg/ Sodium (Chloride) 55 mls @ 165 mls/hr IVPB 1000 [facility] Stop: 06/27/18 10:19 Carboplatin 776 mg/ Sodium (Chloride) 327.6 mls @ 436.8 mls/hr IVPB ONE [facility] Stop: 06/25/18 18:00 Etoposide 196 mg/ Sodium (Chloride) 509.8 mls @ 509.8 mls/hr IVPB 1100 [facility] Stop: 06/27/18 11:59 Melatonin (Melatonin) 3 mg PO HS [facility] Last Admin: 06/24/18 22:08 Dose: 3 mg Mometasone Furoate/Formoterol Fumar (Dulera 200 Mcg/5 Mcg Inhaler) 2 puff INH BID-RT [facility] Last Admin: 06/24/18 18:50 Dose: 2 puff Discontinue Previous Narcotic Pain Medications And Benzodiazepines 1 each FS .ONE [facility] Stop: 07/02/18 18:52 Ondansetron HCl (Zofran) 4 mg IVP Q6H PRN PRN Reason: Nausea/Vomiting Last Admin: 06/24/18 18:56 Dose: 4 mg Palonosetron (Aloxi) 0.25 mg IVP 1000 [facility] Stop: 06/27/18 10:01 Pantoprazole Sodium (Protonix) 40 mg PER TUBE DAILY [facility] Last Admin: 06/24/18 14:44 Dose: Not Given Polyethylene Glycol (Miralax) 17 gm PO DAILY [facility] Last Admin: 06/24/18 14:43 Dose: 17 gm Prednisone (Prednisone) 5 mg PO QAM-WM [facility] Last Admin: 06/24/18 11:03 Dose: 5 mg Senna/Docusate Sodium (Senokot S) 2 tab PO BID [facility] Last Admin: 06/24/18 22:09 Dose: 2 tab Sodium Chloride (Flush - Normal Saline) 10 ml IVF PRN PRN PRN Reason: Saline Flush Last Admin: 06/23/18 08:22 Dose: 10 ml Sodium Chloride (Flush - Normal Saline) 10 ml IVF Q12HR [facility] Last Admin: 06/24/18 22:13 Dose: 10 ml Tramadol HCl (Ultram) 50 mg PO Q6H PRN PRN Reason: Pain Last Admin: 06/24/18 11:04 Dose: 50 mg Trazodone HCl (Desyrel) 50 mg PO HS PRN PRN Reason: Insomnia Last Admin: 06/21/18 20:51 Dose: 50 mg
[2018-06-25 05:29] LABS: Anion Gap 9 mmol/L (10-20); BUN (Urea Nitrogen) 11 mg/dL (9.8-20.1); Calc. Creatinine Clearance 115 mL/min (70-130); Calcium 8.6 mg/dL (7.8-10.44); Carbon Dioxide 30 mmol/L (23-31); Chloride 98 mmol/L (98-107); Estimated GFR-MDRD Greater than 90; Glucose 112 mg/dL (80-115); Magnesium 1.9 mg/dL (1.6-2.6); Potassium 3.7 mmol/L (3.5-5.1); Sodium 133 mmol/L (136-145)
[2018-06-25 05:31] LABS: Band 7 % (5-11); Hemoglobin 7.5 g/dL (12.0-16.0); Lymphocytes 26 % (21-51); MDiff Complete? YES; Mean Corpuscular HGB CONC 32.9 g/dL (32.0-36.0); Mean Corpuscular Hemoglobin 31.3 pg (27.0-31.0); Mean Corpuscular Volume 95.1 fL (78.0-98.0); Mean Platelet Volume 6.9 fL (7.4-10.4); Metamyelocyte 3 % (0-0); Monocytes 11 % (0-10); Neutrophil 53 % (42-75); Nucleated RBC 2 % (0); PLT Morphology Comment Appears Decreased; Platelet Count 107 thou/uL (130-400); RBC Distribution Width 17.7 % (11.5-14.5); RBC Morphology Normal
[2018-06-25] MEDS: Mometasone/Formoterol 120 PUFF INHALER INH SCH ×2 (08:22→19:39)
[2018-06-25] MEDS: Fluconazole 100 MG TAB PO SCH (09:27)
[2018-06-25] MEDS: Acetaminophen 325 MG TAB PO SCH (09:27)
[2018-06-25] MEDS: Senokot S 8.6-50 MG TAB PO SCH (09:28)
[2018-06-25] MEDS: Polyethylene Glycol 3350 17 GM Packet PO SCH (09:28)
[2018-06-25] MEDS: Pantoprazole 40 MG GRANULES PACKET PER TUBE SCH (09:28)
[2018-06-25] MEDS: guaiFENesin ER 600 MG TAB PO SCH (09:28)
[2018-06-25] MEDS: predniSONE 5 MG TAB PO SCH (09:33)
[2018-06-25] MEDS: traMADol HCl 50 MG TAB PO PRN (10:01)
[2018-06-25] MEDS ORDERED: SODIUM CHLORIDE 0.9% IVPB SCH ×3 (11:00→12:00)
[2018-06-25] MEDS ORDERED: ETOPOSIDE IVPB SCH ×2 (11:00→12:00)
[2018-06-25] MEDS ORDERED: CARBOPLATIN IVPB SCH (12:00)
[2018-06-25] MEDS ORDERED: CARBOplatin 600 MG in Sodium Chloride 0.9% 250 ML 250 ML IVPB SCH (12:15)
--- NOTE | 2018-06-25 13:48 | PRG ---
DATE OF SERVICE: 06/25/2018 SUBJECTIVE: Maury is doing well. No shortness of breath. Status post decannulation of trach. PHYSICAL EXAMINATION: VITAL SIGNS: Sats are 93% on room air, temperature is , pulse 89, blood pressure 123/58. CHEST: No wheezing or crackles. CARDIAC: Normal S1, S2. No gallops. ABDOMEN: Soft, no masses. LABORATORY DATA: Electrolytes are normal. White count 11,000, hemoglobin and hematocrit and 2 2, platelet count 107. IMPRESSION: Small cell lung cancer, status post chemotherapy. She is due for chemotherapy today. PLAN: Continue PT and supportive care. Low dose prednisone, home post-chemo.
[2018-06-25] MEDS ORDERED: Acetaminophen 650 MG/20.3 ML UDCUP PO PRN (14:21)
[2018-06-25] MEDS: Dexamethasone 20 MG in Sodium Chloride 0.9% 50 ML IVPB SCH (14:26)
[2018-06-25] MEDS: PALONOSETRON HCL 0.05 MG/ML 5 ML VIAL IVP SCH (14:26)
[2018-06-25] MEDS: Diabetic Tussin 200 MG/10 ML UDCUP PO SCH ×2 (15:11→20:34)
--- NOTE | 2018-06-25 19:24 | PDOC.PN ---
- Subjective Encounter Start Date: 06/25/18 Encounter Start Time: 12:00 Patient seen and examined for new Lung CA. Had swalowing difficulty with meds this AM. No other complaints. No overnight events - Objective Resuscitation Status: Resuscitation Status DNR:Do Not Resuscitate MAR Reviewed: Yes Vital Signs & Weight: Vital Signs (12 hours) Temp Pulse Resp BP BP Pulse Ox 06/25/18 19:05 98.0 F 98 16 129/60 93 L 06/25/18 14:41 98.4 F 98 18 121/56 L 92 L 06/25/18 14:02 95 20 97 06/25/18 08:00 93 L Weight Admit Weight 163 lb 2.273 oz Weight 130 lb Most Recent Monitor Data Heart Rate from ECG 86 NIBP 108/44 NIBP BP-Mean 83 Respiration from ECG 15 SpO2 99 I&O: 06/24/18 06/25/18 06/26/18 06:59 06:59 06:59 Intake Total 2984 2227 2800 Output Total 845 775 Balance 2139 1452 2800 Result Diagrams: 06/25/18 05:00 06/25/18 05:00 Phys Exam - Physical Examination Constitutional: NAD Respiratory: no wheezing, no rhonchi Cardiovascular: RRR, no rub Gastrointestinal: soft, positive bowel sounds Dx/Plan - Plan DVT proph w/SCDs IMPRESSION: 1. New small cell Lung Ca - on Chemo 2. Acute respiratory failure/ COPD Exacerbation - trach dced 3. Thrombocytopenia/Anemia - prob due to Chemo - improving 4. RA/Tob dep/HTN / Anxiety-Depression / Physical deconditioning /Othe issues per previous notes PLAN: Change meds to liqd form Chemo today Cont PT/OT Cont current meds as below Review of Systems - Review of Systems Respiratory: negative: Cough, Dry, Shortness of Breath, Hemoptysis, SOB with Excertion, Pleuritic Pain, Sputum, Wheezing Cardiovascular: negative: chest pain, palpitations, orthopnea, paroxysmal nocturnal dyspnea, edema, light headedness, other - Medications/Allergies Allergies/Adverse Reactions: Allergies Allergy/AdvReac Type Severity Reaction Status Date / Time codeine Allergy Verified 06/02/18 18:50 Medications: Current Medications Acetaminophen (Tylenol) 650 mg AK Q4H PRN PRN Reason: Headache/Fever or Pain Acetaminophen (Tylenol Elixir) 650 mg PO Q4H PRN PRN Reason: pain/fever Albuterol/Ipratropium (Duoneb) 3 ml NEB [id number] [facility] Last Admin: 06/25/18 14:02 Dose: 3 ml Alprazolam (Xanax) 0.25 mg PO TIDPRN PRN PRN Reason: Anxiety Last Admin: 06/24/18 22:09 Dose: 0.25 mg Bisacodyl (Dulcolax) 10 mg AK DAILYPRN PRN PRN Reason: Constipation Last Admin: 06/19/18 13:53 Dose: 10 mg Clonidine (Catapres) 0.1 mg PO Q4H PRN PRN Reason: Blood Pressure Fentanyl (Sublimaze) 25 mcg SLOW IVP Q3H PRN PRN Reason: Severe Pain (7-10) Fluconazole (Diflucan) 100 mg PO 1500 [facility] Stop: 06/29/18 15:01 Guaifenesin (Robitussin Sf) 400 mg PO TID [facility] Last Admin: 06/25/18 15:11 Dose: Not Given Dexamethasone 20 mg/ Sodium (Chloride) 55 mls @ 165 mls/hr IVPB 1000 [facility] Stop: 06/27/18 10:19 Last Admin: 06/25/18 14:26 Dose: 55 mls Melatonin (Melatonin) 3 mg PO HS [facility] Last Admin: 06/24/18 22:08 Dose: 3 mg Mometasone Furoate/Formoterol Fumar (Dulera 200 Mcg/5 Mcg Inhaler) 2 puff INH BID-RT [facility] Last Admin: 06/25/18 08:22 Dose: Not Given Discontinue Previous Narcotic Pain Medications And Benzodiazepines 1 each FS .ONE [facility] Stop: 07/02/18 18:52 Ondansetron HCl (Zofran) 4 mg IVP Q6H PRN PRN Reason: Nausea/Vomiting Last Admin: 06/24/18 18:56 Dose: 4 mg Palonosetron (Aloxi) 0.25 mg IVP 1000 [facility] Stop: 06/27/18 10:01 Last Admin: 06/25/18 14:26 Dose: 0.25 mg Pantoprazole Sodium (Protonix) 40 mg PER TUBE DAILY [facility] Last Admin: 06/25/18 09:28 Dose: 40 mg Polyethylene Glycol (Miralax) 17 gm PO DAILY [facility] Last Admin: 10/20/18 09:28 Dose: 17 gm Prednisone (Prednisone) 5 mg PO QAM-WM [facility] Last Admin: 06/25/18 09:33 Dose: 5 mg Sodium Chloride (Flush - Normal Saline) 10 ml IVF PRN PRN PRN Reason: Saline Flush Last Admin: 06/23/18 08:22 Dose: 10 ml Sodium Chloride (Flush - Normal Saline) 10 ml IVF Q12HR [facility] Last Admin: 06/25/18 09:34 Dose: 10 ml Tramadol HCl (Ultram) 50 mg PO Q6H PRN PRN Reason: Pain Last Admin: 06/25/18 10:01 Dose: 50 mg Trazodone HCl (Desyrel) 50 mg PO HS PRN PRN Reason: Insomnia Last Admin: 06/21/18 20:51 Dose: 50 mg
[2018-06-25] MEDS: Melatonin 3 MG TAB PO SCH (20:34)
[2018-06-26 06:05] LABS: Anion Gap 9 mmol/L (10-20); BUN (Urea Nitrogen) 13 mg/dL (9.8-20.1); Calc. Creatinine Clearance 102 mL/min (70-130); Calcium 8.6 mg/dL (7.8-10.44); Carbon Dioxide 29 mmol/L (23-31); Chloride 102 mmol/L (98-107); Estimated GFR-MDRD Greater than 90; Glucose 171 mg/dL (80-115); Potassium 3.7 mmol/L (3.5-5.1); Sodium 136 mmol/L (136-145)
[2018-06-26 06:28] LABS: Band 14 % (5-11); Lymphocytes 15 % (21-51); MDiff Complete? YES; Mean Corpuscular HGB CONC 33.6 g/dL (32.0-36.0); Mean Corpuscular Hemoglobin 32.1 pg (27.0-31.0); Mean Corpuscular Volume 95.4 fL (78.0-98.0); Mean Platelet Volume 6.8 fL (7.4-10.4); Monocytes 4 % (0-10); Neutrophil 67 % (42-75); Nucleated RBC 1 % (0); PLT Morphology Comment Appears Decreased; Platelet Count 115 thou/uL (130-400); RBC Distribution Width 17.5 % (11.5-14.5); Red Blood Cell (RBC) Count 2.18 mill/uL (4.20-5.40); White Blood Cell (WBC) Count 11.4 thou/uL (4.8-10.8)
[2018-06-26] MEDS: Mometasone/Formoterol 120 PUFF INHALER INH SCH ×2 (08:40→19:17)
[2018-06-26] MEDS: Pantoprazole 40 MG GRANULES PACKET PER TUBE SCH (10:35)
[2018-06-26] MEDS: predniSONE 5 MG TAB PO SCH (10:35)
[2018-06-26] MEDS: Polyethylene Glycol 3350 17 GM Packet PO SCH (10:35)
[2018-06-26] MEDS: traMADol HCl 50 MG TAB PO PRN (13:03)
[2018-06-26] MEDS: Diabetic Tussin 200 MG/10 ML UDCUP PO SCH ×3 (13:03→20:20)
[2018-06-26] MEDS: Dexamethasone 20 MG in Sodium Chloride 0.9% 50 ML IVPB SCH (13:47)
[2018-06-26] MEDS: PALONOSETRON HCL 0.05 MG/ML 5 ML VIAL IVP SCH (13:47)
--- NOTE | 2018-06-26 14:37 | PRG ---
DATE OF SERVICE: 06/26/2018 SUBJECTIVE: This morning, she is better, less short of breath. OBJECTIVE: VITAL SIGNS: Sats are 90% on room air, respirations 20, temperature , status post chemotherapy day #2. CHEST: No wheezing or crackles. CARDIAC: Normal S1 and S2. No gallops. ABDOMEN: Soft, no masses. LABORATORY DATA: Electrolytes are normal. White count 03058, H and H 7 and 20, platelet count 115. IMPRESSION: 1. Status post small cell chemotherapy. 2. Anemia. PLAN: Continue supportive care and PT. DISPOSITION: As per Oncology.
[2018-06-26] MEDS ORDERED: Nicotine 14 MG PATCH TD SCH (14:45)
[2018-06-26] MEDS ORDERED: Fluconazole 40 mg/ml Oral Suspension PO SCH (15:00)
[2018-06-26] MEDS: SODIUM CHLORIDE 0.9% IVPB SCH (15:06)
[2018-06-26] MEDS: ETOPOSIDE IVPB SCH (15:06)
--- NOTE | 2018-06-26 15:35 | PDOC.PN ---
- Subjective Encounter Start Date: 06/26/18 Encounter Start Time: 09:00 Patient seen and examined for Resp failure/New Lung Ca. No new complaints. No overnight events - Objective Resuscitation Status: Resuscitation Status DNR:Do Not Resuscitate MAR Reviewed: Yes Vital Signs & Weight: Vital Signs (12 hours) Temp Pulse Resp BP Pulse Ox 06/26/18 15:15 101 H 20 95 06/26/18 08:40 94 L 06/26/18 08:35 98 20 94 L 06/26/18 08:00 98.0 F 98 18 138/65 98 Weight Admit Weight 163 lb 2.273 oz Weight 138 lb 2 oz Most Recent Monitor Data Heart Rate from ECG 86 NIBP 108/44 NIBP BP-Mean 83 Respiration from ECG 15 SpO2 99 I&O: 06/25/18 06/26/18 06/27/18 06:59 06:59 06:59 Intake Total 2227 3640 240 Output Total 775 500 Balance 1452 3140 240 Result Diagrams: 06/26/18 05:35 06/26/18 05:35 Phys Exam - Physical Examination Constitutional: NAD Respiratory: no wheezing, no rhonchi Cardiovascular: RRR, no rub Gastrointestinal: soft, non-tender, positive bowel sounds Musculoskeletal: no edema Neurological: moves all 4 limbs Dx/Plan - Plan DVT proph w/SCDs IMPRESSION: 1. New small cell Lung Ca - on Chemo 2. Acute respiratory failure/ COPD Exacerbation - trach dced 3. Thrombocytopenia/Anemia - prob due to Chemo - improving 4. RA/Tob dep/HTN / Anxiety-Depression / Physical deconditioning /Other issues per previous notes PLAN: Chemo today and tomorrow Add low dose Zoloft Nicotin patch Cont PT/OT Cont current meds as below DC after Chemo if stable Review of Systems - Review of Systems Respiratory: negative: Cough, Dry, Shortness of Breath, Hemoptysis, SOB with Excertion, Pleuritic Pain, Sputum, Wheezing Cardiovascular: negative: chest pain, palpitations, orthopnea, paroxysmal nocturnal dyspnea, edema, light headedness, other - Medications/Allergies Allergies/Adverse Reactions: Allergies Allergy/AdvReac Type Severity Reaction Status Date / Time codeine Allergy Verified 06/02/18 18:50 Medications: Current Medications Acetaminophen (Tylenol) 650 mg AL Q4H PRN PRN Reason: Headache/Fever or Pain Acetaminophen (Tylenol Elixir) 650 mg PO Q4H PRN PRN Reason: pain/fever Albuterol/Ipratropium (Duoneb) 3 ml NEB [id number] [facility] Last Admin: 06/26/18 15:15 Dose: 3 ml Alprazolam (Xanax) 0.25 mg PO TIDPRN PRN PRN Reason: Anxiety Last Admin: 06/24/18 22:09 Dose: 0.25 mg Bisacodyl (Dulcolax) 10 mg AL DAILYPRN PRN PRN Reason: Constipation Last Admin: 06/19/18 13:53 Dose: 10 mg Clonidine (Catapres) 0.1 mg PO Q4H PRN PRN Reason: Blood Pressure Fentanyl (Sublimaze) 25 mcg SLOW IVP Q3H PRN PRN Reason: Severe Pain (7-10) Guaifenesin (Robitussin Sf) 400 mg PO TID [facility] Last Admin: 06/26/18 13:03 Dose: 400 mg Dexamethasone 20 mg/ Sodium (Chloride) 55 mls @ 165 mls/hr IVPB 1000 [facility] Stop: 06/27/18 10:19 Last Admin: 06/26/18 13:47 Dose: 55 mls Etoposide 168 mg/ Sodium (Chloride) 508.4 mls @ 508.4 mls/hr IVPB [facility] Stop: 06/27/18 11:59 Last Admin: 06/26/18 15:06 Dose: 508.4 mls Melatonin (Melatonin) 3 mg PO HS [facility] Last Admin: 06/25/18 20:34 Dose: 3 mg Mometasone Furoate/Formoterol Fumar (Dulera 200 Mcg/5 Mcg Inhaler) 2 puff INH BID-RT [facility] Last Admin: 06/26/18 08:40 Dose: 2 puff Nicotine (Nicoderm Patch) 14 mg TD NOW [facility] Stop: 06/26/18 16:00 Discontinue Previous Narcotic Pain Medications And Benzodiazepines 1 each FS .ONE [facility] Stop: 07/02/18 18:52 Ondansetron HCl (Zofran) 4 mg IVP Q6H PRN PRN Reason: Nausea/Vomiting Last Admin: 06/24/18 18:56 Dose: 4 mg Palonosetron (Aloxi) 0.25 mg IVP 1000 [facility] Stop: 06/27/18 10:01 Last Admin: 06/26/18 13:47 Dose: 0.25 mg Pantoprazole Sodium (Protonix) 40 mg PER TUBE DAILY [facility] Last Admin: 06/26/18 10:35 Dose: 40 mg Polyethylene Glycol (Miralax) 17 gm PO DAILY [facility] Last Admin: 06/26/18 10:35 Dose: 17 gm Sertraline HCl (Zoloft) 25 mg PO DAILY [facility] Sertraline HCl (Zoloft) 25 mg PO NOW [facility] Stop: 06/26/18 16:00 Last Admin: 06/26/18 15:33 Dose: 25 mg Sodium Chloride (Flush - Normal Saline) 10 ml IVF PRN PRN PRN Reason: Saline Flush Last Admin: 06/23/18 08:22 Dose: 10 ml Sodium Chloride (Flush - Normal Saline) 10 ml IVF Q12HR [facility] Last Admin: 06/26/18 10:35 Dose: 10 ml Tramadol HCl (Ultram) 50 mg PO Q6H PRN PRN Reason: Pain Last Admin: 06/26/18 13:03 Dose: 50 mg Trazodone HCl (Desyrel) 50 mg PO HS PRN PRN Reason: Insomnia Last Admin: 06/21/18 20:51 Dose: 50 mg
[2018-06-26] MEDS: ALPRAZolam 0.25 MG TAB PO PRN (20:20)
[2018-06-26] MEDS: Melatonin 3 MG TAB PO SCH (20:20)
[2018-06-27] MEDS: Ondansetron HCl/PF 4 MG/2 ML Vial IVP PRN (00:05)
[2018-06-27] MEDS: traZODone HCl 50 MG TAB PO PRN ×2 (00:05→22:43)
[2018-06-27 06:20] LABS: #Monocytes 0.4 thou/uL (0.11-0.59); #Neutrophils 6.9 thou/uL (1.40-6.50); %Basophils 0.3 % (0.0-1.0); %Eosinophils 0.2 % (0.0-10.0); %Lymphocytes 21.6 % (21.0-51.0); %Monocytes 3.8 % (0.0-10.0); %Neutrophils 74.1 % (42.0-75.0); Hemoglobin 6.7 g/dL (12.0-16.0); Mean Corpuscular HGB CONC 32.8 g/dL (32.0-36.0); Mean Corpuscular Hemoglobin 31.7 pg (27.0-31.0); Mean Corpuscular Volume 96.4 fL (78.0-98.0); Mean Platelet Volume 6.7 fL (7.4-10.4); Platelet Count 128 thou/uL (130-400); Red Blood Cell (RBC) Count 2.12 mill/uL (4.20-5.40); White Blood Cell (WBC) Count 9.3 thou/uL (4.8-10.8)
[2018-06-27 06:28] LABS: Anion Gap 10 mmol/L (10-20); BUN (Urea Nitrogen) 17 mg/dL (9.8-20.1); Calc. Creatinine Clearance 108 mL/min (70-130); Calcium 8.4 mg/dL (7.8-10.44); Carbon Dioxide 27 mmol/L (23-31); Chloride 103 mmol/L (98-107); Estimated GFR-MDRD Greater than 90; Glucose 133 mg/dL (80-115); Iron 205 ug/dL (50-170); Iron Binding Capacity, Total 204 mcg/dL (265-497); Iron Binding Capacity, Total 206 mcg/dL (265-497); Sodium 136 mmol/L (136-145)
[2018-06-27] MEDS: Mometasone/Formoterol 120 PUFF INHALER INH SCH ×2 (06:28→20:29)
[2018-06-27 06:29] LABS: Iron 206 ug/dL (50-170)
[2018-06-27 07:01] LABS: Folate (Folic Acid) 11.5 ng/mL (7.0-31.4)
--- NOTE | 2018-06-27 08:36 | PDOC.PN ---
- Subjective Encounter Start Date: 06/27/18 Encounter Start Time: 08:35 Subjective: feels well. stronger. -: had 6 cans of Ensure by mouth yesterday w 2 cans of TF -: no abd pain/N/V - Objective Resuscitation Status: Resuscitation Status DNR:Do Not Resuscitate MAR Reviewed: Yes Vital Signs & Weight: Vital Signs (12 hours) Temp Pulse Resp BP Pulse Ox 06/27/18 06:28 96 20 06/27/18 06:27 96 20 06/27/18 04:25 98.3 F 83 18 137/65 94 L 06/27/18 00:31 98.4 F 88 18 137/64 95 Weight Admit Weight 163 lb 2.273 oz Weight 142 lb Most Recent Monitor Data Heart Rate from ECG 86 NIBP 108/44 NIBP BP-Mean 83 Respiration from ECG 15 SpO2 99 I&O: 06/26/18 06/27/18 06/28/18 06:59 06:59 06:59 Intake Total 3640 4191 Output Total 500 300 Balance 3140 3891 Result Diagrams: 06/27/18 06:05 06/27/18 06:05 Additional Labs: Microbiology 06/14/18 14:31 Stool Stool Occult Blood (CELE) - Final 06/11/18 21:35 Stool Stool Culture - Final Yeast species 06/11/18 21:35 Stool Escherichia coli 0157 Culture - Final 06/11/18 21:35 Stool Campylobacter Antigen Assay - Final 06/11/18 21:35 Stool Shiga Toxin Test - Final 06/11/18 21:35 Stool C. difficile GDH Antigen & Toxins - Final 06/08/18 08:05 Bronchial Washing Respiratory Culture - Final Presumptive Cynthia albicans 06/03/18 10:33 Venous blood - Right Hand Blood Culture - Final NO GROWTH IN 5 DAYS Laboratory Tests 06/14/18 06/16/18 06/18/18 05:39 03:43 04:00 WBC Hgb Plt Count 14 L* 75 L 71 L 06/20/18 06/21/18 06/22/18 06:05 04:40 03:58 WBC 14.3 H 15.7 H 14.5 H Hgb Plt Count 67 L 06/23/18 06/25/18 06/26/18 08:08 05:00 05:35 WBC 13.1 H 11.0 H 11.4 H Hgb 7.5 L 7.0 L Plt Count 113 L 107 L 115 L 06/27/18 06:05 WBC 9.3 Hgb 6.7 L Plt Count 128 L Phys Exam - Physical Examination Constitutional: NAD HEENT: PERRLA, moist MMs, sclera anicteric, oral pharynx no lesions Neck: no nodes, no JVD, supple, full ROM Tracheostomy taken down Respiratory: no wheezing, no rales, no rhonchi, clear to auscultation bilateral Cardiovascular: RRR, no significant murmur Gastrointestinal: soft, non-tender, no distention, positive bowel sounds Musculoskeletal: no edema, pulses present Neurological: non-focal, normal sensation, moves all 4 limbs Psychiatric: normal affect, A&O x 3 Skin: no rash Dx/Plan (1) Acute respiratory failure with hypoxia Code(s): J96.01 - ACUTE RESPIRATORY FAILURE WITH HYPOXIA Status: Acute Comment: trach, peg 06/07/2018 (2) Pancytopenia Code(s): D61.818 - OTHER PANCYTOPENIA Status: Acute Comment: Due to chemoRx this admission.s/p transfusion 06/14.Monitor (3) Moderate protein malnutrition Code(s): E44.0 - MODERATE PROTEIN-CALORIE MALNUTRITION Status: Acute (4) Muscular deconditioning Code(s): R29.898 - OTH SYMPTOMS AND SIGNS INVOLVING THE MUSCULOSKELETAL SYSTEM Status: Chronic (5) Small cell lung cancer Code(s): C34.90 - MALIGNANT NEOPLASM OF UNSP PART OF UNSP BRONCHUS OR LUNG Status: Acute Comment: poorly diff per histopath.S/P Chemorx (6) H/O rheumatoid arthritis Code(s): Z87.39 - PERSONAL HISTORY OF DISEASES OF THE MS SYS AND CONN TISS Status: Chronic Comment: was on enbrel and methotrexate prior to hosp - Plan DVT proph w/SCDs Day 3/3 of chemoRx today .cont per oncology -: H/H dropped today.transfuse 1 unit PRBC -: recheck CBC tomrrow -: cont TF ,supportive care. -: shayy JONES home w tomorrow.HD stable BM biopsy per oncology today.Follow results as an OP Review of Systems - Medications/Allergies Allergies/Adverse Reactions: Allergies Allergy/AdvReac Type Severity Reaction Status Date / Time codeine Allergy Verified 06/02/18 18:50 Medications: Current Medications Acetaminophen (Tylenol) 650 mg PA Q4H PRN PRN Reason: Headache/Fever or Pain Acetaminophen (Tylenol Elixir) 650 mg PO Q4H PRN PRN Reason: pain/fever Albuterol/Ipratropium (Duoneb) 3 ml NEB [id number] [facility] Last Admin: 06/27/18 06:31 Dose: Not Given Alprazolam (Xanax) 0.25 mg PO TIDPRN PRN PRN Reason: Anxiety Last Admin: 06/26/18 20:20 Dose: 0.25 mg Bisacodyl (Dulcolax) 10 mg PA DAILYPRN PRN PRN Reason: Constipation Last Admin: 06/19/18 13:53 Dose: 10 mg Clonidine (Catapres) 0.1 mg PO Q4H PRN PRN Reason: Blood Pressure Fentanyl (Sublimaze) 25 mcg SLOW IVP Q3H PRN PRN Reason: Severe Pain (7-10) Guaifenesin (Robitussin Sf) 400 mg PO TID [facility] Last Admin: 06/26/18 20:20 Dose: 400 mg Dexamethasone 20 mg/ Sodium (Chloride) 55 mls @ 165 mls/hr IVPB 1000 [facility] Stop: 06/27/18 10:19 Last Admin: 06/26/18 13:47 Dose: 55 mls Etoposide 168 mg/ Sodium (Chloride) 508.4 mls @ 508.4 mls/hr IVPB WILLCALL [facility] Stop: 06/27/18 11:59 Last Admin: 06/26/18 15:06 Dose: 508.4 mls Melatonin (Melatonin) 3 mg PO HS [facility] Last Admin: 06/26/18 20:20 Dose: 3 mg Mometasone Furoate/Formoterol Fumar (Dulera 200 Mcg/5 Mcg Inhaler) 2 puff INH BID-RT [facility] Last Admin: 06/27/18 06:28 Dose: 2 puff Discontinue Previous Narcotic Pain Medications And Benzodiazepines 1 each FS .ONE [facility] Stop: 07/02/18 18:52 Ondansetron HCl (Zofran) 4 mg IVP Q6H PRN PRN Reason: Nausea/Vomiting Last Admin: 06/27/18 00:05 Dose: 4 mg Palonosetron (Aloxi) 0.25 mg IVP 1000 [facility] Stop: 06/27/18 10:01 Last Admin: 06/26/18 13:47 Dose: 0.25 mg Pantoprazole Sodium (Protonix) 40 mg PER TUBE DAILY [facility] Last Admin: 06/26/18 10:35 Dose: 40 mg Polyethylene Glycol (Miralax) 17 gm PO DAILY [facility] Last Admin: 06/26/18 10:35 Dose: 17 gm Sertraline HCl (Zoloft) 25 mg PO DAILY [facility] Sodium Chloride (Flush - Normal Saline) 10 ml IVF PRN PRN PRN Reason: Saline Flush Last Admin: 06/23/18 08:22 Dose: 10 ml Sodium Chloride (Flush - Normal Saline) 10 ml IVF Q12HR [facility] Last Admin: 06/26/18 20:20 Dose: 10 ml Trazodone HCl (Desyrel) 50 mg PO HS PRN PRN Reason: Insomnia Last Admin: 06/27/18 00:05 Dose: 50 mg
[2018-06-27] MEDS: Polyethylene Glycol 3350 17 GM Packet PO SCH (09:03)
[2018-06-27] MEDS: Pantoprazole 40 MG GRANULES PACKET PER TUBE SCH (09:03)
[2018-06-27] MEDS: Diabetic Tussin 200 MG/10 ML UDCUP PO SCH ×4 (09:03→22:43)
--- NOTE | 2018-06-27 09:24 | PRG ---
DATE OF SERVICE: 06/27/2018 Abril Mendiola is doing well. No shortness of breath. LABORATORY: H&H is 6 and 20. White count is unremarkable. No coughing or wheezing. PHYSICAL EXAMINATION: VITAL SIGNS: Sats 90% on room air, respiration 20, temperature is 98, blood pressure 137/65. CHEST: No wheezing or crackles. CARDIAC: Normal S1, S2. No gallops. ABDOMEN: No masses. EXTREMITIES: No edema. IMPRESSION: 1. Status post chemotherapy small cell. 2. Chronic obstructive pulmonary disease. 3. Respiratory failure, resolved. Status post trach. DISPOSITION: Home anytime. Pulmonary will follow at a distance. She can be discharged home on nebu lizer and Dulera as prescribed.
[2018-06-27] MEDS: PALONOSETRON HCL 0.05 MG/ML 5 ML VIAL IVP SCH (11:59)
[2018-06-27] MEDS: Dexamethasone 20 MG in Sodium Chloride 0.9% 50 ML IVPB SCH (11:59)
--- NOTE | 2018-06-27 12:08 | PQF ---
TAYLOR MURDOCK RICHA MD [id number] [facility]- B09 [id number] CLINICAL DOCUMENTATION IMPROVEMENT CLARIFICATION FORM: ICD-10 Updated PLEASE DO AN ADDENDUM TO THE PROGRESS NOTE WITH ANY DOCUMENTATION UPDATES OR ADDITIONS AND CARRY THROUGH TO DC SUMMARY. THANK YOU. DATE: 06-27-18 ATTN: DR. STEIN Please exercise your independent, professional judgment in responding to the clarification form. Clinical indicators are provided on the bottom of this form for your review Please check appropriate box(s): [ X ] Aspiration Pneumonia [ ] Ventilator Associated PNA [ ] Empirically treating Gram Negative Pneumonia [ ] Pneumonia of unknown etiology [ ] Other diagnosis [ ] Unable to determine In addition, please specify: Present on Admission (POA): [ X ] Yes [ ] No [ ] Unable to determine For continuity of documentation, please document condition throughout progress notes and discharge summary. Thank You. CLINICAL INDICATORS - SIGNS / SYMPTOMS / LABS LABS: WBC 06-03 10.3 10-9 3.5 12 11.7 06-18 15.9 06-19 16.4 06-02 CXR: DIFFUSE INCREASED INTERSTITIAL OPACITIES THROUGHOUT LEFT LUNG W/ MILD PERIHILAR INTERSTITIAL DENSITIES SEEN ON RIGHT . INFECTIOUS PROCESS SHOULD BE CONSIDERED. SMALL LEFT PLEURAL EFFUSION 06-08 CXR: DIFFUSE AIRSPACE OPACITY SEEN BOTH LUNGS, UNCHANGED SINCE PREVIOUS EXAM, POSSIBLY REPRESENTING PNA OR PULMONARY EDEMA. 06-02 (NARAYAN) PROBABLY ASPIRATION PNA 06-04 STARTED CHEMO 06-18/06-19 BRADING: SEVERE SEPSIS, INCREASING 06-19 EMIL: WBC COUNT TRENDING UP BUT NO FEVER OR S/S OF INFECTION 06-22 NARAYAN: COPD; PNA 06-24 JANEE: NO EVIDENCE OF INFECTION RISK FACTORS 10- OP NOTE (JANEE) : VENTILATOR DEPENDENT SMALL CELL LUNG CANCER; DYSPHAGIA; MALNUTRITION; COPD; RESP FAILURE TREATMENTS: 06-02 PULMONARY CONSULT 06-02 ON VENT 10-2 TRACH/PEG MAR: MAXIPIME IV 06-02 TO 10-4 THANK YOU, VERA (This form is maintained as a part of the permanent medical record) 2015 [email or web address]. All Rights Reserved Vera Mercedes RN, BS [email or web address]
[2018-06-27 12:33] VITALS: BMI 21.6
[2018-06-27] MEDS: ETOPOSIDE IVPB SCH (12:41)
[2018-06-27] MEDS: SODIUM CHLORIDE 0.9% IVPB SCH (12:41)
[2018-06-27] MEDS ORDERED: traMADol HCl 50 MG TAB PO PRN (16:08)
--- NOTE | 2018-06-27 17:43 | CT ---
CT GUIDED BONE MARROW ASPIRATE: RIGHT ILIAC WING BONE BIOPSY: 06/27/2018 HISTORY: Patient with small cell lung cancer, on chemotherapy. TECHNIQUE: Informed consent was obtained from the patient. The right iliac wing was localized using CT guidance . The overlying skin was prepped and draped in the usual sterile manner. A 1% Lidocaine solution was used to anesthetized the overlying soft tissues. A small dermatotomy was made. An 11 gauge Jamshidi needle was placed, using CT guidance, into the right iliac wing. Bone marrow aspiration obtained. This was followed by core biopsy using the needle. The specimen, including bone marrow aspirate and bone fragment, was given to pathology for pathologic workup. IMPRESSION: Successful right iliac wing bone marrow aspiration and core bone biopsy. POS: YARITZA
[2018-06-27] MEDS: Melatonin 3 MG TAB PO SCH ×2 (21:00→22:44)
[2018-06-27] MEDS: ALPRAZolam 0.25 MG TAB PO PRN (22:43)
[2018-06-28 07:03] LABS: #Basophils 0.1 thou/uL (0.0-0.2); #Lymphocytes 1.8 thou/uL (1.20-3.40); #Monocytes 0.1 thou/uL (0.11-0.59); #Neutrophils 4.1 thou/uL (1.40-6.50); %Basophils 0.9 % (0.0-1.0); %Eosinophils 0.2 % (0.0-10.0); %Lymphocytes 29.7 % (21.0-51.0); %Monocytes 0.8 % (0.0-10.0); %Neutrophils 68.4 % (42.0-75.0); Hemoglobin 7.4 g/dL (12.0-16.0); Mean Corpuscular HGB CONC 33.7 g/dL (32.0-36.0); Mean Corpuscular Hemoglobin 31.8 pg (27.0-31.0); Mean Corpuscular Volume 94.3 fL (78.0-98.0); Platelet Count 129 thou/uL (130-400); Red Blood Cell (RBC) Count 2.31 mill/uL (4.20-5.40); White Blood Cell (WBC) Count 5.9 thou/uL (4.8-10.8)
[2018-06-28 07:26] LABS: Anion Gap 12 mmol/L (10-20); BUN (Urea Nitrogen) 18 mg/dL (9.8-20.1); Calc. Creatinine Clearance 107 mL/min (70-130); Calcium 8.5 mg/dL (7.8-10.44); Carbon Dioxide 26 mmol/L (23-31); Chloride 105 mmol/L (98-107); Estimated GFR-MDRD Greater than 90; Glucose 120 mg/dL (80-115); Potassium 3.9 mmol/L (3.5-5.1); Sodium 139 mmol/L (136-145)
[2018-06-28] MEDS: Mometasone/Formoterol 120 PUFF INHALER INH SCH (07:55)
[2018-06-28] MEDS: Pantoprazole 40 MG GRANULES PACKET PER TUBE SCH (09:15)
[2018-06-28] MEDS: Diabetic Tussin 200 MG/10 ML UDCUP PO SCH ×2 (09:15→15:09)
[2018-06-28] MEDS: Polyethylene Glycol 3350 17 GM Packet PO SCH (09:15)
[2018-06-28 11:56] VITALS: BP 130/62; TEMP 98.2
--- NOTE | 2018-06-28 13:00 | PRG ---
DATE OF SERVICE: 06/28/2018 SUBJECTIVE: She is doing well. She is being discharged home under home healthcare. OBJECTIVE: VITAL SIGNS: Sats 90% on room air, respiration 16, pulse 80, temperature 98, blood pressure is 120/60. CHEST: No wheezing or crackles. CARDIAC: Normal S1, S2. ABDOMEN: Soft, no masses. IMPRESSION: 1. Chronic obstructive pulmonary disease. 2. Small cell cancer. 3. Respiratory failure. 4. Severe deconditioning. PLAN: Disposition home. Follow up with her primary care physician, Dr bailey _ as needed. He is on nebulizer several times a day, Dulera as needed.see pulmonary as needed She can follow up with her primary care physician in [place]. JEFFREY
[2018-06-28] MEDS: Fentanyl 100 MCG/2 ML VIAL SLOW IVP PRN ×2 (14:19→16:11)
--- NOTE | 2018-06-29 00:27 | DIS ---
DATE OF ADMISSION: 06/02/2018 DATE OF DISCHARGE: 06/28/2018 CONDITION AT THE TIME OF DISCHARGE: Stable and improved. DISCHARGE DIAGNOSES: 1. Small cell cancer of the lung. 2. Acute hypoxic respiratory failure secondary to #1, status post tracheostomy with taken down of th e tracheostomy. 3. Dysphagia secondary to cancer, status post PEG tube placement. 4. Pancytopenia related to cancer chemotherapy. 5. Moderate protein-calorie malnutrition. 6. Severe muscle deconditioning. 7. Small cell cancer of the lung. 8. History of rheumatoid arthritis. DISCHARGE MEDICATIONS: Resume home medications as follows, Enbrel 50 mg subcutaneously every 7 days and methotrexate 10 mg every 7 days. The patient will follow up with Oncology before resuming these medications. She has recently been diagnosed with small cell cancer of the lung. Lisinopril 10 mg d aily, Ventolin inhaler q.4 hours p.r.n., Advair Diskus 250/50 b.i.d., sertraline 50 mg daily. NEW MEDICATION: DuoNeb q.6 hours as needed and MiraLax 17 grams p.o. daily as needed, and tramadol 5 0 mg p.o. q.4 hours p.r.n. as needed for pain. PRIMARY CARE PHYSICIAN: Out of town. INHOUSE CONSULTATIONS: 1. Pulmonary Medicine. 2. Oncology, Dr. Zuñiga. 3. Radiation Oncology, Dr. Monreal. 4. General Surgery, Dr. Zelaya. PROCEDURES DONE IN THE HOSPITAL: 1. Transthoracic echocardiogram, which shows grade 1/3 diastolic dysfunction, EF of 60-65%. 2. Lower extremity venous Doppler bilaterally which is negative for any deep venous thrombosis. 3. MediPort placement left subclavian vein by Dr. Zelaya on 06/07/2018. 4. Diagnostic bronchoscopy on 06/08/2018. 5. Modified barium swallow study, which shows no evidence of aspiration or penetration. 6. Bone marrow biopsy with the pathology came in back today as metastatic small cell carcinoma consi stent with a lung primary. HISTORY OF PRESENT ILLNESS: Ms. Mendiola is a pleasant 63-year-old female who was transferred from [facility] after being hospitalized there for nearly 17 days or so. She was on the ventilator for 11 days and was transferred for acute respiratory failure and a new finding of small cell lung cancer, needing Oncology consultation and chemotherapy. The patient had a complicated hosp ital course at [facility] as well as prior to that with C. difficile requiring 3 we eks of treatment with oral vancomycin and finding of low gallbladder ejection fraction with plans for laparoscopic cholecystectomy. This was put on hold when she developed shingles in the right upper q uadrant, requiring acyclovir treatment. She got hospitalized as she continued to get weaker at [facility] [place]. There, she developed pneumonia and hypoxia, requiring endotracheal intubation. A CT scan was done and was showing cancer wrapping around the bronchus. Bronchoscopy was done and biopsi es were taken of the mass. She failed multiple CPAP trials and was transferred to our facility to t the chemotherapy to shrink the tumor, so she could be weaned off the ventilator. She was essential ly transferred to our facility as a direct admit for inpatient chemotherapy. Please see admission hi story and physical for further detail. Given the patient's complicated presentation and her admissio n by another physician, my colleague, Dr. Triana. She was admitted to ICU and Pulmonary Medicin e was consulted as well as Oncology. She was put on ventilator IV antibiotic and Solu-Medrol. HOSPITAL COURSE: The patient had a long and complicated hospital course. I would refer the reader t o day-to-day EMR for further details, but her hospital summary is as follows. The patient was seen b y Oncology and was started on cancer chemotherapy. She developed pancytopenia requiring transfusion, but eventually stabilized. She received second dose of chemotherapy prior to her discharge yesterda y. The plans are to do two more cycles. A bone marrow biopsy was ordered by oncologist, Dr. Yogesh ortiz just came back as metastatic small cell cancer after the patient's discharge. She is planning t o follow up with Oncology in the outpatient setting. With regard to her respiratory failure and intubated status, Pulmonary Medicine follow the patient al albert in the ICU. She eventually had tracheostomy and PEG tube placement due to severe weakness in the bed and inability to handle oral secretions and take food. She is very extensively with the occupat ional therapist and physical therapist. Eventually, she was able to be tapered off the ventilator an d continued to do well. Her hospital course was prolonged because she tried to set her up with the ehabilitation or LTAC or correction facility, but she was refused multiple times by multiple fac ilities because she would require ongoing chemotherapy every 3 weeks. Thankfully, the patient recove red to the point where tracheostomy was taken down and she passed a swallow test and was able to eat small amount of food by her mouth. She has received second round of chemotherapy by Oncology as an inpatient and as of this morning, is able to participate and the physical therapist able to feed herself and is saturating without any hyp oxia on room air. At this point, we have decided that the patient will benefit from home with [facility] and she is being discharged with the same. The patient will need to follow up with oncologist for further chemotherapy sessions and for discussion of the results of the bone marrow biopsy. She was also seen by radiation oncologist, Dr. Monreal, in the hospital for possible radiation therapy and she will follow up with him as an outpatient as well. The patient was seen and examined prior to discharge today. She is in good spirits and doing well. Her son is at bedside. Discharge plan was discussed with them and the prescriptions were provided an d they verbalized understanding. PHYSICAL EXAMINATION: VITAL SIGNS: This morning, temperature 98.2, pulse of 87, respirations 16, saturating 94% on room ai r, blood pressure 130/62. GENERAL: No acute distress, awake, alert, oriented x3. She is very talkative and happy that she is going home. CHEST: Clear to auscultation bilaterally. HEART: Rate and rhythm are regular. EXTREMITIES: Free of any cyanosis, clubbing, or edema. LABORATORY DATA: WBC is 5.9, platelet count 129,000, hemoglobin 7.4. She has received 1 unit of pac ked RBC transfusion yesterday for hemoglobin of 6.7 related to cancer chemotherapy. Serum chemistry is unremarkable as of this morning. A wheelchair and a walker was arranged for her. Home health will follow up after discharge. Total time spent 35 minutes.
== END 2018-06-28 17:09 | disposition home health service (06) | DRG 4 ==
LOC: CCU 17:46 → IMCU/EMU 06-11 13:44 → ONC 06-18 23:15
PROVIDERS: ADMIT Internal Medicine; ATTEND Internal Medicine
PROC: 5A1955Z Respiratory Ventilation, Greater than 96 Consecutive Hours (ICD-10-PCS; principal; 2018-06-03)
PROC: 0B110F4 Bypass Trachea to Cutaneous with Tracheostomy Device, Open Approach (ICD-10-PCS; 2018-06-07)
PROC: 0JH63WZ Insertion of Totally Implantable Vascular Access Device into Chest Subcutaneous Tissue and Fascia, Percutaneous Approach (ICD-10-PCS; 2018-06-07)
PROC: 02HV33Z Insertion of Infusion Device into Superior Vena Cava, Percutaneous Approach (ICD-10-PCS; 2018-06-07)
PROC: 0DH63UZ Insertion of Feeding Device into Stomach, Percutaneous Approach (ICD-10-PCS; 2018-06-07)
PROC: 0B9K8ZX Drainage of Right Lung, Via Natural or Artificial Opening Endoscopic, Diagnostic (ICD-10-PCS; 2018-06-08)
PROC: 30233R1 Transfusion of Nonautologous Platelets into Peripheral Vein, Percutaneous Approach (ICD-10-PCS; 2018-06-14)
PROC: 30233N1 Transfusion of Nonautologous Red Blood Cells into Peripheral Vein, Percutaneous Approach (ICD-10-PCS; 2018-06-14)
PROC: 0QB23ZX Excision of Right Pelvic Bone, Percutaneous Approach, Diagnostic (ICD-10-PCS; 2018-06-27)
PROC: 07DR3ZX Extraction of Iliac Bone Marrow, Percutaneous Approach, Diagnostic (ICD-10-PCS; 2018-06-27)
DX: C34.01 Malignant neoplasm of right main bronchus (principal); J96.01 Acute respiratory failure with hypoxia; J69.0 Pneumonitis due to inhalation of food and vomit; D61.810 Antineoplastic chemotherapy induced pancytopenia; R65.20 Severe sepsis without septic shock; G93.41 Metabolic encephalopathy; E44.0 Moderate protein-calorie malnutrition; G93.40 Encephalopathy, unspecified; B37.49 Other urogenital candidiasis; J44.1 Chronic obstructive pulmonary disease with (acute) exacerbation; C77.1 Secondary and unspecified malignant neoplasm of intrathoracic lymph nodes; C79.52 Secondary malignant neoplasm of bone marrow; E86.0 Dehydration; J32.9 Chronic sinusitis, unspecified; M06.9 Rheumatoid arthritis, unspecified; I10 Essential (primary) hypertension; H35.53 Other dystrophies primarily involving the sensory retina; R13.10 Dysphagia, unspecified; F41.8 Other specified anxiety disorders; F17.210 Nicotine dependence, cigarettes, uncomplicated; T45.1X5A Adverse effect of antineoplastic and immunosuppressive drugs, initial encounter; B02.9 Zoster without complications; Z68.21 Body mass index [BMI] 21.0-21.9, adult; Z88.8 Allergy status to other drugs, medicaments and biological substances; Z79.899 Other long term (current) drug therapy
CPT/HCPCS: 20225; 36415; 36430; 70553; 71045; 71046; 74230; 77012; 80048; 80053; 80074; 80076; 81001; 82274; 82607; 82728; 82746; 82805; 83540; 83550; 83615; 83735; 83880; 84100; 84550; 85007; 85025; 85027; 85049; 85300; 85362; 85379; 85384; 85610; 85730; 86850; 86900; 86901; 87040; 87045; 87046; 87070; 87086; 87205; 87324; 87449; 87899; 88305; 88311; 88341; 88342; 88360; 93306; 93970; 94002; 94003; 94640; A4218; A9579; C1788; G8978-GP-CM; G8978-GP-CN; G8979-GP-CK; G8979-GP-CL; G8987-GO-CL; G8987-GO-CM; G8988-GO-CJ; G8988-GO-CK; G8996-GN-CK; G8997-GN-CI; G9159-GN-CL; G9160-GN-CJ; G9171-GN-CI; G9172-GN-CI; J0670; J0692; J1100; J1450; J1642; J1650; J1652; J2250; J2270; J2405; J2469; J2505; J2704; J2920; J3010; J7050; J7506; J7620; J9045; J9181; P9016; P9035; S0028